=== PATIENT | male | born 1955 ===

== ENCOUNTER 2016-11-05 15:49 | Inpatient (IN) | payer OTHER, MEDICAID ==
[~2016-11-05] VITALS: Ht 177.8 cm; Wt 86.6 kg
[~2016-11-05 15:49] MED LIST: BACL20TA PO; GABA300C PO; LISI-567 PO; METH750T3 PO; NPR500T PO
[2016-11-05] MEDS ORDERED: 0.9% Sodium Chloride 1,000 ML IV ONE ×3 (16:12→19:45)
--- NOTE | 2016-11-05 16:12 | ED.REPORT ---
HPI-General Illness Date of Service Nov 05, 2016 ED Provider: Anupam Evans MD 61 y/o male with a hx of hypertension, DM, pneumonia and heroin abuse presents to the ED via EMS after he was found unconscious at home prior to arrival. The EMS found the patient lying on the floor, unresponsive with green vomit on the side of his face. As per the EMS, the pt seemed like he had aspirated. His oxygen level was very low which improved after the administration of CPAP and by sitting the pt up. The pt was last normal several hours ago, exact time unknown as family was not home. The EMS recorded an axillary temperature of 102 en route. The pt was released from rehab for heroin use 2 days ago. He denies using heroin today. Nursing Notes Stated Complaint: FEVER,RESP DISTRESS Nursing Notes Reviewed: Yes Allergies: Coded Allergies: hydrocodone (Verified Adverse Reaction, Mild, MAKE PT FEEL WEIRD, 03/25/16) Scheduled Aspirin (Aspirin) 81 Mg Tablet 81 MG PO DAILY Lisinopril (Lisinopril) 40 Mg Tablet 40 MG PO DAILY Mirtazapine (Mirtazapine) 15 Mg Tablet 15 MG PO HS Prazosin (Prazosin) 1 Mg Capsule 1 MG PO HS General Time Seen by MD: 16:01 Chief Complaint Breathing problem Hx Obtained From: EMS Arrived By: Ambulance Sudden in Onset?: Yes Onset Occurred: Onset unknown Symptom Duration: Duration unknown Severity: Current: No pain currently Severity: Maximum: No pain Recent Healthcare: No recent doctor visit Similar Sx Previous: No Past Medical History Past Medical History chronic back pain heroin use 03/25/2016 kidney stones back pain r/t DJD with history of lumbar decompression Reports: Hypertension Reports: Depression Past Surgical History bunion surgery colon surgery Reports: Appendectomy Smoking History Current Every Day Smoker Social History no alcohol for 1.5 years 03/25/2016 Alcohol Use: Denies alcohol use Drug Use: THC Other Social History: Good social support, Local resident Occupation lives by self, no work or school Ambulatory Status Independent Review of Systems Unable to Obtain ROS Patient condition (ROS below reported by EMS) Full Review of Systems Constitutional: Reports: Fever GI: Reports: Vomiting Neurologic: Reports: Change LOC Complete sys rev & neg: except as marked. Physical Exam Vital Signs Vital Signs Date Time Temp Pulse Resp B/P Pulse Ox O2 Delivery O2 Flow Rate FiO2 11/05/16 17:13 130 23 153/91 98 Mechanical Ventilator 11/05/16 16:16 39.8 113 30 101/73 80 BiPAP Initial VS: Reviewed Extremities: Vascular intact, Neuro intact, No swelling, No tenderness Skin: Warm, Dry, No cyanosis Alertness: Positive: Somnolent Distress / Hydration: Positive: Distress severe Diaphoretic Febrile to touch Head / Eyes: Atraumatic, Normocephalic Small pupils Respiratory / Chest: Atraumatic Rales / Rhonchi: Positive: Rhonchi coarse L, Rhonchi coarse R Cardiovascular: Regular rhythm, Heart sounds NL, No murmurs, No rubs, Peripheral circulation NL, Pulses = bilaterally Heart Rate / Rhythm: Positive: Tachycardia Abdomen: Atraumatic, Soft, Non-tender, No guarding, No rebound Interpretation & Diagnostics Lab Results Interpretation Result Diagram: 11/05/16 1626 11/05/16 1626 Test 11/05/16 16:26 11/05/16 17:01 11/05/16 17:17 White Blood Count 1.9th/mm3 (3.8-10.1) Red Blood Count 4.37mil/mm3 (4.40-5.80) Hemoglobin 13.5g/dL (13.8-17.2) Hematocrit 40.1% (41.0-50.0) Mean Corpuscular Volume 91.8fL (81-100) Mean Corpuscular Hemoglobin 30.9pg (27.0-35.0) Mean Corpuscular Hemoglobin Concent 33.7% (32.0-37.0) Red Cell Distribution Width 14.4% (12.3-15.4) Platelet Count 178bil/L (150-400) Neutrophils (%) (Auto) 6% (40-74) Lymphocytes (%) (Auto) 28% (14-46) Monocytes (%) (Auto) 2% (4-12) Eosinophils (%) (Auto) 0% (0-5) Basophils (%) (Auto) 0% (0-3) Band Neutrophils % 6% (1-5) Metamyelocytes % 40% (0-0) Myelocytes % 18% (0-0) Prothrombin Time 12.0sec (8.1-12.5) Prothromb Time International Ratio 1.12ratio Sodium Level 129mEq/L (134-144) Potassium Level 4.8mEq/L (3.5-5.2) Chloride Level 89mEq/L (97-108) Carbon Dioxide Level 15mmol/L (18-29) Blood Urea Nitrogen 80mg/dL (8-27) Creatinine 7.88mg/dL (0.76-1.27) Estimat Glomerular Filtration Rate 7mL/min (>59) Glucose Level 89mg/dL (60-99) Calcium Level 8.3mg/dL (8.5-10.1) Phosphorus Level 3.8mg/dL (2.5-4.9) Magnesium Level 1.6mg/dL (1.6-2.6) Total Bilirubin 0.7mg/dL (0.0-1.2) Aspartate Amino Transf (AST/SGOT) 127U/L (0-50) Alanine Aminotransferase (ALT/SGPT) 61U/L (0-44) Alkaline Phosphatase 57U/L (25-160) Troponin T < 0.010ug/L (0.0-0.011) Total Protein 7.3g/dL (6.4-8.4) Albumin 3.5g/dL (3.4-5.0) Lactic Acid Level 3.5mmol/L (0.4-2.0) Urine Color Dark yellow (YELLOW) Urine Appearance Hazy (CLEAR,HAZY) Urine pH 5.0 (5.0-8.0) Urine Specific Jerome 1.020 (1.003-1.035) Urine Protein 100mg/dL (NEG,TRACE) Urine Glucose (UA) Negativemg/dL (NEGATIVE) Urine Ketones Tracemg/dL (NEGATIVE) Urine Occult Blood Large (NEGATIVE) Urine Nitrite Negative (NEGATIVE) Urine Bilirubin Negative (NEGATIVE) Urine Urobilinogen Normalmg/dL (NORMAL) Urine Leukocyte Esterase Trace (NEGATIVE) Urine RBC 3-10/hpf (0-2) Urine WBC 6-10/hpf (0-5) Urine Epithelial Cells Few/hpf (NONE-MOD) Urine Crystals None seen (NONE SEEN) Urine Bacteria Few/hpf (NONE-FEW) Urine Hyaline Casts None/lpf (NONE) Urine Granular Casts None seen (NONE SEEN) Urine Waxy Casts None seen (NONE SEEN) Urine Red Blood Cell Casts None seen (NONE SEEN) Urine White Blood Cell Casts None seen (NONE SEEN) Urine Mucus None seen (None Seen) Urine Trichomonas None seen (NONE SEEN) Urine Yeast None (NONE SEEN) Urinalysis Comment Amorphous sediment Urine Culture Reflexed Indicated ECG Interpretation ECG Interpretation: Sinus tachycardia. Rate 122 Age indeterminate anteroseptal infarct. Time: 16:07 Interpreted by: ED physician X-Ray Chest Interpretation Chest Xray Interpretation: IMPRESSION: Patchy bilateral pneumonia. Pulmonary hemorrhage or atypical pulmonary edema may also have this appearance. Please correlate clinically. Dictated by: Patrick Merlos M.D. on 11/05/2016 at 16:23 Approved by: Patrick Merlos M.D. on 11/05/2016 at 16:26 View: Portable, 1 view Interpretation / Wet Read by: Interpret - Radiologist Procedures Intubation Intubation Procedure: Performed by Kimmy Russell EMT-P under my direct supervision. After intubation, I inserted a glidescope to confirn the placement of tube between the cords. Time: 16:18 Procedure Performed by: ED physician Consent / Setup / Site Prep: Informed consent provided, Consent from patient , rail car repair carman applied, Hand hygiene observed Patient Position: Sniff position Blade / ET Tube / Route: Mac Procedural Sedation/Analgesia: Sedation: Etomidate Neuromuscular Agent: Succinylcholine ET Confirmation: Direct visualization, BS equal, End tidal CO2 device, CXR, Rising O2 sat Secured / Marked: Tube marked at ___ cm (22cm at lips) Complications: None Post-Procedure: Condition improved, Tolerated procedure well, Patient stable Re-Eval/Medical Decision Med Decision/Clinical Course Central line was not placed because his pressure recovered quickly after distal half of saline Time of Eval: 16:16 Re-Evaluation/Progress Note: Discussed diagnosis and plan to admit. Pt understands and agrees with the plan for admission. Consultation #1: Referral / Consult Name: Magno Armendariz MD Consulted With: Hospitalist Call Returned at: 16:57 Lead Business Analyst: Will see patient, Agrees with eval, Agrees with plan, Accepts admit Consultation #2: Referral / Consult Name: Girma Salazar MD Lead Business Analyst: Will see patient Note: At bedside Consultation #3: Referral / Consult Name: Agus Juárez MD Consulted With: Air Sealing Technician Note: Abdomen bedside Counseled Regarding: Diagnosis, Need for admission Discharge & Departure Primary Impression: Aspiration pneumonia Disposition: ADMITTED TO HOSPITAL Discharge Condition All VS Reviewed: Yes Referrals: Jerome Lu MD (PCP) Scribe Attestation Portions of this note were transcribed by Viktoria Nascimento. I, , personally performed the history, physical exam and medical decision- making;I reviewed and confirmed the accuracy of the information in the transcribed note. Signed by Zuri Caicedo. 11/05/16 17:08 copies to: Jerome Lu MD, Kirk H MD Nov 05, 2016 16:12 Viktoria Nascimento Nov 05, 2016 16:36
[2016-11-05] MEDS ORDERED: Cefepime Inj 2,000 MG in Dextrose 5% Minibag Plus 100 ML IV ONE (16:15)
[2016-11-05] MEDS ORDERED: Vancomycin Dose per Pharmacist XX ONE ×2 (16:15→17:40)
[2016-11-05] MEDS ORDERED: levoFLOXacin Inj 750 MG in IV Premix 1 EACH IV ONE (16:15)
[2016-11-05 16:16] VITALS: BP 101/73; PULSE 113; RESP 30; O2SAT 80
--- NOTE | 2016-11-05 16:27 | DRSVH ---
PROCEDURE: X-RAY CHEST ONE VIEW, PORTABLE ([id number]) INDICATIONS: intubation TECHNIQUE: One view of the chest was acquired. COMPARISON: [facility], CR, CHEST 2VW, 12/28/2008, 9:35. FINDINGS: Surgical changes and devices: None. Lungs and pleura: Multifocal areas of pulmonary consolidation are identified within the lungs, which is seen within the bilateral lung bases and at the inferior margin of the right upper lobe. There ma y be consolidation within the lingula, as well. There is no pneumothorax or large effusion. These f indings are new since the prior study. Mediastinum: Mediastinal contours appear normal. Heart size is normal. Bones and chest wall: No suspicious bony lesions. Overlying soft tissues appear unremarkable. IMPRESSION: Patchy bilateral pneumonia. Pulmonary hemorrhage or atypical pulmonary edema may also downing ve this appearance. Please correlate clinically. Dictated by: Patrick Merlos M.D. on 11/05/2016 at 16:23 Approved by: Patrick Merlos M.D. on 11/05/2016 at 16:26
[2016-11-05 16:29] LABS: BASOPHILS % (AUTO) 0 % (0-3); Mean Corpuscular Hemoglobin 30.9 pg (27.0-35.0)
[2016-11-05] MEDS ORDERED: Vancomycin Inj 1,500 MG in 0.9% Sodium Chloride 500 ML IV ONE (16:30)
[2016-11-05 16:32] LABS: EOSINOPHILS % (AUTO) 0 % (0-5); Mean Corpuscular Volume 91.8 fL (81-100); Platelet Count 178 bil/L (150-400)
[2016-11-05] MEDS ORDERED: Midazolam 100 mg/100 mL Premix IV PRN (16:40)
[2016-11-05 16:44] LABS: INR 1.12 ratio
[2016-11-05 16:48] LABS: MONOCYTES % (AUTO) 2 % (4-12); NEUTROPHILS % (AUTO) 6 % (40-74)
[2016-11-05 17:03] LABS: Magnesium 1.6 mg/dL (1.6-2.6); Phosphorus 3.8 mg/dL (2.5-4.9)
--- NOTE | 2016-11-05 17:05 | DRSVH ---
PROCEDURE: X-RAY CHEST ONE VIEW, PORTABLE ([id number]) INDICATIONS: POST INTUBATION TECHNIQUE: One view of the chest was acquired. COMPARISON: [facility], CR, XR CHEST 1VW (PORTABLE), 11/05/2016, 15:58. FINDINGS: Surgical changes and devices: Interval placement of an endotracheal tube is identified with the tip l ocated at the thoracic inlet approximately 5.9 cm above the level of the leyda. Lungs and pleura: Aeration of the lungs is similar to the prior examination with patchy multifocal ar eas of consolidation, most prominent within the inferior aspect of the right upper lobe. No pleural effusion or pneumothorax is evident. Mediastinum: Mediastinal contours appear normal. Heart size is normal. Bones and chest wall: No suspicious bony lesions. Overlying soft tissues appear unremarkable. IMPRESSION: 1. Interval placement of an endotracheal tube with the tip at the thoracic inlet. 2. Patchy consolidation within both lungs is similar to the prior exam. Dictated by: Patrick Merlos M.D. on 11/05/2016 at 17:02 Approved by: Patrick Merlos M.D. on 11/05/2016 at 17:03
[2016-11-05 17:09] LABS: TROPONIN T < 0.010 ug/L (0.0-0.011)
[2016-11-05 17:13] VITALS: BP 153/91; PULSE 130; RESP 23; O2SAT 98
[2016-11-05] MEDS ORDERED: Ondansetron 2 mg/mL 2 mL Inj IVPUSH PRN (17:25)
[2016-11-05] MEDS ORDERED: Succinylcholine Chloride 20 mg/mL 5 mL Inj ONE (17:28)
[2016-11-05] MEDS ORDERED: Dexmedetomidine Inj 400 MCG in 0.9% Sodium Chloride 100 ML IV SCH (17:37)
[2016-11-05] MEDS ORDERED: fentaNYL-PF 50 mCg/mL 2 mL Inj IVPUSH PRN (17:40)
[2016-11-05 17:44] LABS: APPEARANCE,URINE HAZY (CLEAR,HAZY); COLOR,URINE DARK YELLOW (YELLOW); OCCULT BLOOD,URINE LARGE (NEGATIVE)
[2016-11-05 17:45] LABS: UROBILINOGEN,URINE NORMAL (NORMAL)
[2016-11-05] MEDS ORDERED: ASPI-973 PO (17:46)
[2016-11-05] MEDS ORDERED: LISI40TA PO (17:46)
[2016-11-05] MEDS ORDERED: PRAZ1CAP2 PO (17:46)
[2016-11-05] MEDS ORDERED: MIRT15TA6 PO (17:46)
[2016-11-05 17:55] VITALS: BP 148/70; PULSE 126; RESP 22; O2SAT 96
--- NOTE | 2016-11-05 18:26 | PCM.HPMED ---
Subjective Date of Service Nov 05, 2016 Primary Provider: Admitting Physician: Magno Armendariz MD Primary Care Physician: Jerome Lu MD Attending Physician: Magno Armendariz MD Admit Status: From the Emergency Department, Admit to [facility] Team Chief Complaint: 61-year-old male with history of substance abuse presents with acute respiratory failure with hypoxia, toxic encephalopathy and sepsis History of Present Illness: The patient is now intubated and sedated and unable to give history. According to emergency department reports he completed a detoxification program within the last 48 hours. He was at home alone for prolonged period, and found to be obtunded when family returned. Vomitus was observed. educational/development assistant were called and he reportedly received no occipital with minimal change. He presented to the emergency department alert enough to interact verbally. He denied having use and did not identify specific health complaints to the emergency department provider. He was in severe respiratory distress tachycardic and mildly hypotensive. He was intubated urgently. Review of Systems: The patient is unable to comply with ROS. Allergies Coded Allergies: hydrocodone (Verified Adverse Reaction, Mild, MAKE PT FEEL WEIRD, 03/25/16) Home Medications Aspirin 81 mg daily Lisinopril 40 mg daily Mirtazapine 15 mg at bedtime Prazosin 1 mg at bedtime PMH chronic back pain heroin use 03/25/2016 kidney stones back pain r/t DJD with history of lumbar decompression Glucose intolerance . Family History Unable to obtain. Social History Hx Alcohol Use: Yes (OCC) Hx Substance Use: Yes (THC, hx heroin abuse) Hx Tobacco Use: Yes (1/2 PPD since age 11) Smoking Status: Current Every Day Smoker Living Arrangement: with Family Exam Vital Signs Vital Sign - Last Date Time Temp Pulse Resp B/P Pulse Ox O2 Delivery O2 Flow Rate FiO2 11/05/16 17:55 126 22 148/70 96 Mechanical Ventilator 11/05/16 16:16 39.8 Exam General: Middle-age man, disheveled, encephalopathic and agitated on ventilator HEENT: sclerae anicteric, face symmetric, atraumatic Neck: Difficult to assess JVD Chest: Diffuse coarse inspiratory crackles and rhonchi Cardiac: S1S2, regular, no murmur appreciated Abdomen: BS normal, no rigidity Extremities: No pedal edema, no acute swelling or trauma Neuro: Obtunded, cranial nerves symmetric, so far extremities with normal strength, coordination and sensory exam non-testable Lab and Diagnostics Labs Lactic acid 3.5, CPK 6072 Urine tox screen: Positive for opioid and amphetamine Troponin T normal Result Diagram: 11/05/16 1626 11/05/16 1626 X-Rays, CTs and MRIs PROCEDURE: X-RAY CHEST ONE VIEW, PORTABLE ([id number]) IMPRESSION: Patchy bilateral pneumonia. Pulmonary hemorrhage or atypical pulmonary edema may also have this appearance. Please correlate clinically. Dictated by: Patrick Merlos M.D. on 11/05/2016 at 16:23 . PROCEDURE: X-RAY CHEST ONE VIEW, PORTABLE ([id number]) IMPRESSION: 1. Interval placement of an endotracheal tube with the tip at the thoracic inlet. 2. Patchy consolidation within both lungs is similar to the prior exam. Dictated by: Patrick Merlos M.D. on 11/05/2016 at 17:02 . Assessment & Plan 61-year-old man with opioid abuse disorder presents with acute respiratory failure with hypoxia, ARDS versus aspiration pneumonia, and encephalopathy related to hypoxia and probable opioid toxicity. # Sepsis, acute. SIRS criteria on admission: Tachycardia heart rate 113, tachypnea RR 30, temperature 39.8, neutropenia WBC 1.9 with left shift 64% immature forms. Lactic acid 3.5 Presumed due to aspiration pneumonia. - Hemodynamic support to maintain MAP and urine output - Serial lactic acid every 3 hours until less than 2.0 - Antibiotics: Zosyn # Cardiac: Hemodynamics & Rhythm - sinus tachycardia rhythm, troponin T normal , currently hypotensive and may require vasopressors especially with sedation. - Telemetry monitoring - Maintain MAP greater than 65 mmHg # Respiratory status - ARDS versus aspiration pneumonia. - Ventilator bundle; tidal volume for ARDS - Pulmonary consult - Repeat chest x-ray in a.m. # Lines, I/O's, fluids and electrolytes - - 2 peripheral IVs; CVC or PICC indicated if pressor support as needed - Judd catheter - CC electrolyte reflex management # Renal - Acute renal failure with creatinine 7.88 on admission. Elevated CPK likely rhabdomyolysis of several days' duration. Metabolic acidosis anion gap 25. Hyponatremia sodium 129 on admission. Seems to be producing urine. - IV normal saline unless CVP is elevated; avoid fluid overload - Bicarb 1 amp push q8hr - Limit free water - Monitor urine output; reduce IV fluids in the event of reduced urine output - Goal urine output greater than 0.5 mL/KG/MR - Daily BMP - Nephrology consult # Hematological - neutropenia with leukemoid reaction likely related to acute sepsis. - Daily CBC # GI, diabetes, and nutritional status - abdomen seems nonacute. Mild transaminase elevation but no hepatic failure. Glucose is normal - Nutrition consult, plan to initiate enteral feeds by G-tube on 11/06 his abdomen remains nonacute # Neurological - toxic encephalopathy due to opioids, metabolic encephalopathy due to hypoxia. - Monitor clinical status with daily sedation holiday # Infectious disease status - - Zosyn for aspiration pneumonia - Check MRSA swab # Pain status - stable on ventilator sedation # Venous thromboembolism prophylaxis: - Subcutaneous heparin # GI prophylaxis: - IV famotidine every 12 # Goals of care, expected hospital duration, discharge planning: - Admitted to inpatient status in CCU due to life-threatening critical illness, with expectation of care greater than 48 hours - Full code Pain Evaluation: Adequate Pain Control VTE Prophylaxis: Sub-Q Heparin (Unfractionated) Resuscitation Status: CPR: Attempt Resuscitation Time spent 75 minutes spent in patient assessment in care coordination including review of data with consultants Magno Armendariz MD Nov 05, 2016 18:26
--- NOTE | 2016-11-05 18:33 | PCM.CONPHA ---
Assessment/Plan Assessment/Plan Pharmacy Kinetic Dosing Vancomycin Indication: ASPIRATION PNEUMONIA Vanc goal trough: 15-20mcg/mL Pt wt:74.6 kg Other ABX: ZOSYN Cultures: Blood and MRSA pending SCr: 7.88 mg/dL Assessment/Plan: - Loading dose of Vancomycin 1500 mg given in ED for (20mg/kg dosing) -Will continue Vancomycin 750 mg Q48H (10mg/kg dosing) with trough scheduled prior to 4th dose on 11/11 @1700. Suspected that patient is in ROCÍO due to not being a dialysis patient but no past lab values to compare against. Will adjust timing and dosage as SrCr improves. Pharmacy appreciates consult and will continue to monitor. Hillary Ty PharmD Nov 05, 2016 18:33
[2016-11-05] MEDS: 0.9% Sodium Chloride 1,000 ML IV SCH ×2 (18:40→21:41)
[2016-11-05] MEDS: Propofol Inj 1,000,000 MCG in IV Premix 1 EACH IV SCH (18:40)
[2016-11-05 18:41] VITALS: BP 89/51; PULSE 122; RESP 33; O2SAT 96
[2016-11-05] MEDS: fentaNYL 2,500 mCg/250 mL 2,500 MCG in IV Premix 1 EACH IV PRN (18:41)
[2016-11-05] MEDS: Dexmedetomidine 400 mCg/100 mL 400 MCG in IV Premix 1 EACH IV SCH (19:00)
[2016-11-05] MEDS: Cisatracurium Inj 200,000 MCG in 0.9% Sodium Chloride-Pha MIX 100 ML IV SCH (19:02)
--- NOTE | 2016-11-05 19:09 | ABG ---
DateTimeAnalyzed 19:04:00 -_ HCO3- ___16.7__ -mmol/L 22.0 26.0 ABE __-11.3__ -mmol/L -2.0 2.0 FIO2 __100.0__ -% Drawn By MK - B 759 -mmHg tO2 ___17.0__ -Vol%
--- NOTE | 2016-11-05 19:10 | ABG ---
DateTimeAnalyzed 19:03:27 -_ pH ____7.149 - 7.350 7.450 pCO2 ___50.5__ -mmHg 35.0 45.0 pO2 127 -mmHg 69.0 116 HCO3- ___17.5__ -mmol/L 22.0 26.0 ABE __-10.7__ -mmol/L tHb ___12.4__ -g/dL O2Hb ___93.4__ -% COHb ____0.8__ -% 1.5 MetHb ____0.7__ -% sO2 ___94.7__ -% FIO2 __100.0__ -% Pressure_Support ___10.0__ -cmH2O PEEP ____5.0__ -cmH2O Drawn By MK - Date/Time Notified____ 19:09:00 -_ Spontaneous_RR 30 -b/min Oxygen Device 1 VENTILATOR - Notified By MK - Notified Whom kendregan - K+ ____4.7__ -mmol/L tO2 ___16.5__ -Vol% Lj test _Positive -
--- NOTE | 2016-11-05 19:18 | NUR ---
Admit to CCU Pt arrived to CCU at aprox 1815. See VS flow sheet for vitals. ST 120s. Hypotensive, unable to increase sedation despite pt agitation. Dr. Juárez paralyzed pt IV push 8mg of Nimbex. Nimbex gtt started at 3mcg/kg/min. Temp 39.1(ax) at 1815, 45min post Tylenol suppository. Current vent settings: FiO2 100%, PEEP 10, Vt 530, RR 20; SpO2 97%
[2016-11-05] MEDS: Sodium Bicarb (50 mEq) 8.4% 1 mEq/mL 50 mL Syringe IVPUSH SCH ×2 (19:34→23:32)
[2016-11-05] MEDS ORDERED: Norepinephrine 8,000 mCg/250 mL NS Premix IV ONE (19:45)
[2016-11-05] MEDS: Norepineph 8,000 mCg/250 mL NS 8,000 MCG in IV Premix 1 EACH IV SCH (19:50)
--- NOTE | 2016-11-05 20:06 | PCM.CHPMED ---
Subjective Date of Service: Nov 05, 2016 Provider requesting consult: Magno Armendariz MD Primary Physician: Admitting Physician: Magno Armendariz MD Primary Care Physician: Jerome Lu MD Attending Physician: Magno Armendariz MD Admit Status: Admit to Yellow Team, Critical Care Chief Complaint: Chief Complaint: ICU CONSULTATION FOR RESPIRATORY FAILURE, HYPOTENSION, SHOCK. ATTENDING DR PORTILLO History of Present Illness: Herber Brito is a 61 year old man with past medical history significant for hypertension, diabetes mellitus, pneumonia and heroin abuse who presented to the [facility] ED via EMS due to loss of consciousness. The patient was intubated in the ED and is unable to give history, most of the history is obtained from records and provider accounts. The patient has a history of heroin abuse and and was in an inpatient rehab center and was release on Tuesday. Per report he was left alone today and was subsequently found down in his home, laying on the floor with green vomit on the side of his face. The patient was still maintaining his airway when he was brought to the ED. The patient was tried on CPAP by EMS and appeared to improve. He was given Narcan which only improved his somnolence minimally. Per EMS his axillary temperature was 102. Per the ED physician the patient was able to answer a few minimal questions on arrival but was intubated for airway protection. He denied using drugs today. CXR in the ED revealed diffuse patchy infiltrates. When evaluated in the ED the patient was using significant effort to inspire against the portable ventilator and was tachypnic. Upon arrival to the ICU the patient was placed on a ventilatory with marginal improvement. The patient's blood pressure subsequently decreased as he fought the ventilator. He was paralyzed with Nimbex, sedated, with good improvement of the blood pressure. IJ was placed for monitoring and medication delivery. Review of Systems: A comprehensive review of systems could not be performed as the patient is obtunded. 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 Social History Hx Alcohol Use: Yes (OCC)Hx Substance Use: Yes (THC, hx heroin abuse)Hx Tobacco Use: Yes (1/2 PPD since age 11) Smoking Status: Current Every Day Smoker Living Arrangement: with Family Exam Vital Signs Vital Sign - Last Date Time Temp Pulse Resp B/P Pulse Ox O2 Delivery O2 Flow Rate FiO2 11/05/16 18:41 39.1 122 33 89/51 96 Mechanical Ventilator 100 Additional Information: General: in acute distress, thrashing about the bed, agitated, significantly diaphoretic HEENT: Normocephalic, atraumatic. External ears without defect. Pupils equal, round, and reactive to light and accommodation. Anicteric sclerae, moist conjunctivae, and no lid lag. Oropharynx free of erythema and cobble stoning with dry mucosa. ET tube in place, OG tube in place. Neck: Supple with full range of motion. No jugular venous distension. No lymphadenopathy or thyromegaly. Cardiovascular: Tachycardic with regular rhythm with no murmurs, rubs, or gallops appreciated Pulmonary: Clear to auscultation bilaterally with no crackles, wheezes, or rhonchi. Tachypnic with excessive respiratory effort. Abdomen: Bowel tones present. Soft, nontender, nondistended. No hepatosplenomegaly or masses appreciated. Extremities: No clubbing, cyanosis, edema, or lymphadenopathy appreciated. Skin: Normal temperature, turgor, and texture; no rash, ulcers, or subcutaneous nodules appreciated. : Normal appearing genitalia with Judd in place with clear yellow urine draining Neurological: Agitated. Cranial nerves grossly intact. Normal muscle strength, tone, and bulk. No known gait impairment. Psychiatric: Agitated, encephalopathic Lab and Diagnostics Labs CK 6072 Lactic acid 3.5 Laboratory Tests Test 11/05/16 17:17 Urine Color Dark yellow Urine Appearance Hazy Urine pH 5.0 Urine Specific [place] 1.020 Urine Protein 100mg/dL Urine Glucose (UA) Negativemg/dL Urine Ketones Tracemg/dL Urine Occult Blood Large Urine Nitrite Negative Urine Bilirubin Negative Urine Urobilinogen Normalmg/dL Urine Leukocyte Esterase Trace Urine RBC 3-10/hpf Urine WBC 6-10/hpf Urine Epithelial Cells Few/hpf Urine Crystals None seen Urine Bacteria Few/hpf Urine Hyaline Casts None/lpf Urine Granular Casts None seen Urine Waxy Casts None seen Urine Red Blood Cell Casts None seen Urine White Blood Cell Casts None seen Urine Mucus None seen Urine Trichomonas None seen Urine Yeast None Urinalysis Comment Amorphous sediment Urine Culture Reflexed Indicated Result Diagram: 11/05/16 1626 11/05/16 1626 X-Rays, CTs and MRIs X-RAY CHEST ONE VIEW, PORTABLE IMPRESSION: 1. Interval placement of an endotracheal tube with the tip at the thoracic inlet. 2. Patchy consolidation within both lungs is similar to the prior exam. Dictated by: Patrick Merlos M.D. on 11/05/2016 at 17:02 Additional Diagnostics: ABG on 100% FiO2 and PEEP of 5 DateTimeAnalyzed 19:03:27 -_ pH ____7.149 - 7.350 7.450 pCO2 ___50.5__ -mmHg 35.0 45.0 pO2 127 -mmHg 69.0 116 HCO3- ___17.5__ -mmol/L 22.0 26.0 Assessment & Plan Assessment Herber Brito is a 61 year old man with past medical history significant for hypertension, diabetes mellitus, pneumonia and heroin abuse who presented to the [facility] ED via EMS due to loss of consciousness. Encephalopathy secondary to acute drug intoxication secondary to opioids and amphetamines -Patient was extremely agitated and trashed about when he was seen in the ICU -Questionable history, query if patient took drugs not tested on a screen -Patient's hyperthermia, tachycardia, rhabdomyolysis, agitation all more likely due to intoxication than sepsis -Continue paralytic and sedation with Versed Respiratory failure secondary to acute aspiration pneumonia possibly complicated by ARDS -Mechanical ventilation with paralysis with Nimbex, sedation with Versed and Fentanyl -Low tidal volume protocol per ARDS-NET -Repeat ABG in 30 minutes and tomorrow AM -Zosyn per Dr. Salazar Sepsis secondary to aspiration pneumonia -With T 39.8, RR 30, WBC 1.9, hyperlactetemia -Blood, sputum and urine cultures obtained -Antibiotics as above -Patient received 2 L of NS, will continue with one more L and reassess -Serial lactic acid measurement Q3 until <2 Hypotension -Likely secondary to increased intrathoracic pressure secondary to patient agitation and hyperventilation and hypovolemia, improved significantly after patient was paralyzed. -IJ placement with CVP monitoring and hemodynamic monitoring with goal CVP >12, MAP > 65 with further IVF and NE -Continue with fluid resuscitation as long as patient is able to make urine Pancytopenia -Likely secondary to drug ingestion versus sepsis -Patient's bone marrow appears to be making all immature WBCs -Anticipate hemoglobin and platelet count will drop as patient is hydrated. High anion gap metabolic acidosis likely secondary to renal failure and hyperlactetemia -AVF as above -Repeat ABG tonight and in the AM. Repeat BMP tonight and in the AM. Acute renal failure likely secondary to rhabdomyolysis and hypovolemia. -Maintaining good urine output. Will continue to monitor. -Repeat BMP -Nephrology consulted by primary team. Rhabdomyolysis -IVF as above. Patient will likely need more aggressive fluid resuscitation throughout the night. Hypovolemic hyponatremia -IVF as above Prophylaxis: GI: Famotidine DVT: Subcutaneous heparin Thank you for allowing us to participate in the care of this patient, we will follow along with you. Problems: Pain Evaluation: Adequate Pain Control VTE Prophylaxis: Sub-Q Heparin (Unfractionated) Resuscitation Status: CPR: Attempt Resuscitation Time spent A total of 2 hours of critical care time was spent in the coordination and care of this patient. Attending Statement The patient was seen and examined together with Dr. Montelongo on 11/05/2016 and I agree with the history, exam and plan as outlined in the note above. Renata Montelongo DO Nov 05, 2016 20:06 Agus Portillo MD Nov 25, 2016 15:21
--- NOTE | 2016-11-05 20:09 | DRSVH ---
PROCEDURE: X-RAY CHEST ONE VIEW, PORTABLE ([id number]) INDICATIONS: line placement TECHNIQUE: One view of the chest was acquired. COMPARISON: [facility], CR, XR CHEST 1VW (PORTABLE), 11/05/2016, 16:35. FINDINGS: Surgical changes and devices: Right internal jugular central venous catheter with the tip projecting in the lower SVC. Lungs and pleura: Redemonstration of bilateral consolidative opacities, with mild worsening in the ri ght upper lobe Mediastinum: Mediastinal contours appear normal. Heart size is normal. Bones and chest wall: No suspicious bony lesions. Overlying soft tissues appear unremarkable. IMPRESSION: Status post placement of right internal jugular central venous catheter with the tip projecting in th e lower SVC. No pneumothorax. Widespread bilateral consolidative opacities, mildly increased in the right upper lobe since earlier same day Dictated by: Roney Ayala M.D. on 11/05/2016 at 19:50 Approved by: Roney Ayala M.D. on 11/05/2016 at 20:07
[2016-11-05 20:19] VITALS: BP 90/50; O2SAT 99
[2016-11-05] MEDS: Piperacillin-Tazo 3.375 Gm Inj 3.375 GM in Dextrose 5% Minibag Plus 50 ML IV SCH (20:29)
[2016-11-05 20:30] VITALS: BP 85/49; PULSE 110; RESP 20; O2SAT 100
--- NOTE | 2016-11-05 20:30 | ABG ---
DateTimeAnalyzed 20:23:29 -_ pH ____7.177 - 7.350 7.450 pCO2 ___48.7__ -mmHg 35.0 45.0 pO2 104 -mmHg 69.0 116 HCO3- ___18.0__ -mmol/L 22.0 26.0 ABE ___-9.8__ -mmol/L tHb ___13.0__ -g/dL O2Hb ___95.5__ -% COHb ____0.7__ -% 1.5 MetHb ____0.4__ -% sO2 ___96.6__ -% FIO2 __100.0__ -% PEEP ___10.0__ -cmH2O Set_RR 20 -b/min Vt __530.0__ -L Drawn By MK - Date/Time Notified____ 20:30:00 -_ Spontaneous_RR 20 -b/min Oxygen Device 1 VENTILATOR - Notified By MK - Notified Whom dr yanchuk - K+ ____4.9__ -mmol/L tO2 ___17.6__ -Vol% Lj test _Positive -
[2016-11-05 20:40] LABS: BASOPHILS % (AUTO) 0 % (0-3); Mean Corpuscular Hemoglobin 30.5 pg (27.0-35.0); Mean Corpuscular Volume 93.5 fL (81-100); Platelet Count 133 bil/L (150-400)
[2016-11-05] MEDS ORDERED: Sodium Chloride LOK Flush 10 mL Syringe IVFLUSH PRN ×2 (20:40)
[2016-11-05 20:56] LABS: EOSINOPHILS % (AUTO) 0 % (0-5); MONOCYTES % (AUTO) 0 % (4-12); NEUTROPHILS % (AUTO) 6 % (40-74)
--- NOTE | 2016-11-05 21:31 | PCM.PROC ---
Procedure Note Date of Service: Nov 05, 2016 Pre Procedure Diagnosis: Sepsis, hypotension Post Procedure Diagnosis: Sepsis, hypotension Procedure: Central Venous Catheter Placement Provider and Garbage Collection Supervisor: Resident: Renata Montelongo Attending: Agus Juárez Indication for Procedure: Hypotension, sepsis Procedural Analgesia: Sedated with Versed Procedure Details: A time-out was completed verifying correct patient, procedure, site, positioning , and special equipment if applicable. The patient was placed in a dependent position appropriate for central line placement based on the vein to be cannulated. The patients right neck was prepped and draped in sterile fashion. 1 % Lidocaine was used to anesthetize the surrounding skin area. A triple lumen 9- Far[place] Cordis catheter was introduced into the the internal jugular using the Seldinger technique and under ultrasound guidance. The catheter was threaded smoothly over the guide wire and appropriate blood return was obtained. Each lumen of the catheter was evacuated of air and flushed with sterile saline. The catheter was then secured in place to the skin and a sterile dressing applied. Perfusion to the extremity distal to the point of catheter insertion was checked and found to be adequate. Dr. Juárez was present for the entire procedure. Estimated blood loss: 10 cc Post Procedure Plan: Chest xray to confirm line placement. Attending Statement I was present for and supervised the procedure. Date of Service: 11/05/2016 Renata Montelongo DO Nov 05, 2016 21:31 Agus Juárez MD Nov 06, 2016 13:31
[2016-11-05] MEDS: Chlorhexidine 0.12% 15 mL Oral Solution MT SCH ×2 (21:37→23:32)
[2016-11-05] MEDS: Famotidine Inj 20 MG in IV Premix 1 EACH IV SCH (21:38)
[2016-11-05] MEDS ORDERED: Magnesium Sulf 2 Gm/50mL Water 2 GM in IV Premix 1 EACH IV ONE (22:50)
[2016-11-05] MEDS ORDERED: Calcium GLUCO 10% (Gm) Inj 2 GM in 0.9% Sodium Chloride 100 ML IV ONE (22:50)
[2016-11-05] MEDS: 0.9% Sodium Chloride 500 ML IV PRN (23:09)
[2016-11-05] MEDS: Acetaminophen IV 1,000 MG in IV Premix 1 EACH IV PRN (23:32)
[2016-11-06] VITALS (14 sets, daily range): BP systolic 86–118; BP diastolic 50–72; PULSE 96–111; RESP 20–24; O2SAT 91–100
[2016-11-06] MEDS: 0.9% Sodium Chloride 500 ML IV PRN ×5 (00:21→04:25)
[2016-11-06] MEDS: Heparin 5,000 Unit/mL Inj SUBQ SCH ×4 (01:09→23:33)
[2016-11-06] MEDS: 0.9% Sodium Chloride 1,000 ML IV SCH ×6 (01:37→23:33)
[2016-11-06 02:37] LABS: Mean Corpuscular Hemoglobin 30.8 pg (27.0-35.0); Mean Corpuscular Volume 94.3 fL (81-100)
[2016-11-06] MEDS: Norepineph 8,000 mCg/250 mL NS 8,000 MCG in IV Premix 1 EACH IV SCH ×9 (03:10→23:32)
[2016-11-06] MEDS: Chlorhexidine 0.12% 15 mL Oral Solution MT SCH ×6 (04:25→23:32)
[2016-11-06] MEDS ORDERED: Dextrose 10% 250 ML IV ONE (04:25)
[2016-11-06] MEDS ORDERED: Calcium GLUCO 10% (Gm) Inj 2 GM in 0.9% Sodium Chloride 100 ML IV ONE (04:25)
[2016-11-06] MEDS ORDERED: Insulin Human REGular 300 Unit/3 mL Inj IV ONE (04:25)
--- NOTE | 2016-11-06 04:44 | ABG ---
DateTimeAnalyzed 04:37:34 -_ pH ____7.132 - 7.350 7.450 pCO2 ___46.2__ -mmHg 35.0 45.0 pO2 146 -mmHg 69.0 116 HCO3- ___15.4__ -mmol/L 22.0 26.0 ABE __-12.9__ -mmol/L tHb ___13.7__ -g/dL O2Hb ___97.9__ -% COHb ____0.5__ -% 1.5 MetHb ____0.5__ -% sO2 ___98.8__ -% FIO2 __100.0__ -% PEEP ___10.0__ -cmH2O Set_RR 20 -b/min Vt __530.0__ -L Drawn By MK - Date/Time Notified____ 04:43:00 -_ Spontaneous_RR 20 -b/min Notified By MK - Notified Whom _fuiamono - K+ ____5.2__ -mmol/L tO2 ___19.1__ -Vol% Lj test _Positive -
[2016-11-06] MEDS: Piperacillin-Tazo 3.375 Gm Inj 3.375 GM in Dextrose 5% Minibag Plus 50 ML IV SCH ×2 (05:16→17:53)
--- NOTE | 2016-11-06 06:29 | NUR ---
Hypotension/Lab/Febrile/Respiratory P: sbp 68-90s mmhg, map 50s, cvp 5-7, Mg 1.6, corrected CA 7.5, on Vent support with fio2 1.0, abg at 2029 resulted with pH 7.17, pc02 49, p02 104, hc03 18; RASS -5, BIS 40s, on fentanyl, versed and nimbex gtt,Tmax 38.7 C. I: started levo gtt, given NS 500 cc bolus x 6, given mag sulfate 2 gm, ca gluconate 1gm IV x2, given bicarb 2 amps IVP, given Tylenol 1gm IV and applied cooling measures. E: june drained with 2090cc uo, last temp down to 37.1C, map improved >65, cvp 11, levo @ 0.8 mcg/kg/min, fio2 down to 0.80 last p02 146. AM lab resulted with k+ 5.9, given regular insulin 10 units IV, D10W 250cc x1. Family visited last night, updated with plan of care.
[2016-11-06] MEDS: Sodium Bicarb (50 mEq) 8.4% 1 mEq/mL 50 mL Syringe IVPUSH SCH ×3 (08:23→23:32)
--- NOTE | 2016-11-06 08:49 | NUR ---
Per nursing Pt is not appropriate for physical therapy at this time, please d/c order.
--- NOTE | 2016-11-06 09:18 | DRSVH ---
PROCEDURE: X-RAY CHEST ONE VIEW ([id number]) INDICATIONS: Respiratory distress TECHNIQUE: One view of the chest was acquired. COMPARISON: [facility], CR, XR CHEST 1VW (PORTABLE), 11/05/2016, 15:58. [facility], CR, XR CHEST 1VW (PORTABLE), 11/05/2016, 19:17. FINDINGS: Surgical changes and devices: Internal jugular central line on the right. NG tube into the stomach. E ndotracheal tube ending 7 cm above the leyda. Lungs and pleura: No effusion is seen. Bilateral peripheral fluffy areas of airspace disease are pres ent Mediastinum: Mediastinal contours appear normal. Heart size is normal. Bones and chest wall: No suspicious bony lesions. Overlying soft tissues appear unremarkable. IMPRESSION: Bilateral peripheral patchy airspace disease is unchanged in the lungs since the previous day. No evidence for effusion and the heart size and vasculature are normal. This is not failure. In fection is most likely. Dictated by: Francois Curran M.D. on 11/06/2016 at 9:13 Approved by: Francois Curran M.D. on 11/06/2016 at 9:16
--- NOTE | 2016-11-06 09:20 | NUR ---
Social Work: Screen D: Per EMR review, pt is a 61 year old male admitted for Aspiration Pneumonia. Pt is [place] with [facility]; PCP is Jerome Lu MD. NOK is Jann Michel, brother. Advanced directives not on file. Readmit score is low, 05/30. Pt admitted for CCU on mechanical vent. Pt lives in [place] with family. Pt has a history of ETOH use and recently was at detox for substance use. A: Pt who lives in [place] with family. P: Evolving; STRINGER MACHINE TENDER to continue to follow pts clinical course and assist with safe discharge planning; STRINGER MACHINE TENDER to complete CD assessment once ordered by . CHRISTOPHER Negrete
[2016-11-06] MEDS ORDERED: Dextrose 10% 250 ML IV PRN (09:25)
[2016-11-06] MEDS ORDERED: 0.9% Sodium Chloride 500 ML IV ONE (09:30)
[2016-11-06 11:20] LABS: Phosphorus 7.3 mg/dL (2.5-4.9)
[2016-11-06] MEDS: Dextrose 5% 0.9% NaCl 1,000 ML IV SCH ×2 (11:45→21:33)
[2016-11-06 12:53] LABS: BASOPHILS % (AUTO) 1 % (0-3); EOSINOPHILS % (AUTO) 1 % (0-5); MONOCYTES % (AUTO) 8 % (4-12); NEUTROPHILS % (AUTO) 47 % (40-74)
[2016-11-06 12:58] LABS: INR 1.29 ratio
[2016-11-06 13:06] LABS: D-Dimer 8.19 mg/L FEU (<0.50)
[2016-11-06] MEDS ORDERED: Albuterol 2.5 mg/3 mL Inhalation Solution NEB STA (13:11)
[2016-11-06] MEDS ORDERED: Calcium GLUCO 10% (mEq) Inj 9.3 MEQ in Dextrose 5% 100 ML IV ONE (13:15)
--- NOTE | 2016-11-06 13:17 | DRSVH ---
[facility] [address] [place] [address] Echocardiogram Report Name: GIORGIO OBRIEN MStudy Aiden e: 11/06/2016 Height: 70 in Hospital Exam Location: [facility] Weight: 169 lb Gender: Male BSA: 1.9 m2 : 1955 Age: 61 yrs BP: 106/76 mmHg Reason For Study: SEPTIC SHOCK History: smoker Ordering Physician: Leonardo Edenist Referring Physician: NAVDEEP PORTILLO Interpretation Summary No gross evidence for endocarditis; however, the valves are not ideally visualized. The left ventricle is normal in size. The ejection fraction is estimated to be 55-60%. The right ventricle is borderline dilated. Right ventricular systolic function is at the lower limits of normal. The IVC is of normal diameter and collapses greater than 50% with a sniff. This suggests a low right atrial pressure of 3 mm Hg. There is a trivial right-sided pleural effusion. There is a moderately large left-sided pleural effusion. Procedure: A two-dimensional transthoracic echocardiogram with color flow and Doppler was performed. The study quality was technically difficult. There is no prior echocardiogram noted for this patient. The patient was in sinus tachycardia with heart rates between 104-106 bpm during the exam. Left Ventricle: The left ventricle is normal in size. Proximal septal thickening is noted. There is no echo evidence for significant left ventricular outflow tract obstruction. There is no thrombus. The ejection fraction is estimated to be 55-60%. Septal motion is consistent with conduction abnormality. Spectral Doppler of the mitral valve is reversed, with an E/A wave ratio < 1.0. Right Ventricle: The right ventricle is borderline dilated. Right ventricular systolic function is at the lower limits of normal. Atria: The left atrium grossly appears normal in size. Right atrial size is normal. There is no Doppler evidence for an interatrial shunt. Mitral Valve: There is mild mitral annular calcification. There is no mitral regurgitation noted. Aortic Valve: The aortic valve opens well. The aortic valve is not well visualized. There is no aortic valve stenosis. No aortic regurgitation is present. Tricuspid Valve: The tricuspid valve is not well visualized, but is grossly normal. Pulmonary artery pressures cannot be estimated because of the lack of a measurable TR jet velocity. There is trace tricuspid regurgitation. Pulmonic Valve: The pulmonic valve is not well visualized. Great Vessels: The aortic root is normal size. The ascending aorta could not be visualized. The IVC is of normal diameter and collapses greater than 50% with a sniff. This suggests a low right atrial pressure of 3 mm Hg. Pericardium/ Pleura There is a trivial pericardial effusion noted. There are no echocardiographic indications of cardiac tamponade. There is a trivial right-sided pleural effusion. There is a moderately large left-sided pleural effusion. MMode/2D Measurements & Calculations LVIDd: 4.5 cm RA long axis LVOT diam LVIDs: 2.7 cm LA A4 area: 15.8 cm FS: 40.0 % LA length (vol): 4.0 cm RA area AoV Opening IVSd: 0.96 cm IVC diam: 1.2 cm LVPWd: 0.87 cm : 13.7 cm Ao root diam RA vol: 34.3 ml: 3.7 cm RA : 17.6 mm2 LV huntley. diameter/BSA LV sys. diameter/BSA RVD1 (basal) TAPSE: 1.8 cm (cm/m^2): 2.3 (cm/m^2): 1.4 Doppler Measurements & Calculations Ao V2 max MV E max magdiel MV E/A: 0.82 MV dec time: 0.25 sec : 119.9 cm/sec : 55.3 cm/sec Med Peak E' Magdiel Ao max P.8 mmHgMV A max magdiel Ao mean PG : 67.7 cm/sec E/E' med: 5.1 MV P1/2t LVOT Max Magdiel : 74.3 msec : 104.0 cm/sec KANU(I,D): 4.1 cm sev ratio: 1.0 MV P1/2t max magdiel Ao V2 mean LV V1 max PG KANU indexed to BSA : 86.3 cm/sec (cm^2/m^2): 2.1 Ao V2 VTI LV V1 VTI: 16.5 cm MVA(P1/2t): 3.0 cm2 KANU(V,D): 3.4 cm2 Reading Physician:GINO
--- NOTE | 2016-11-06 13:27 | PROG NOTE ---
[address] [address] PROGRESS NOTE PATIENT: GIORGIO OBRIEN : 1955 MR#: [id number] ADMIT: 11/05/2016 JOB ID: [id number] DATE: 11/06/2016 PULMONARY CRITICAL CARE FOLLOWUP NOTE: PROBLEM LIST: 1. Polysubstance abuse with apparent overdose. 2. Aspiration pneumonitis. 3. Shock, multifactorial. 4. Rhabdomyolysis. 5. Acute renal failure. 6. Lactic acidosis. 7. Multiple electrolyte abnormalities including hyperphosphatemia and hyperkalemia. 8. Thrombocytopenia. 9. Severe marrow damage with marked leukopenia. SUBJECTIVE: None. OBJECTIVE: Temperature 38.5 with T-max being 38.7. Pulse 100-110. Respiratory rate 20 with ventilator set at 20. Blood pressure 110/58 on norepinephrine at 0.8 mcg/kg per minute. O2 sat on FiO2 of 60%, PEEP of 10, is 98%. I and O shows 5.7 L in, 2.1 L out. General appearance: Sedated, paralyzed, on the ventilator. Eyes: Conjunctivae are relatively pink. Pinpoint pupils. Nose and throat could not be examined. Chest shows good breath sounds bilaterally. There are coarse crackles throughout the entire left lung field. Some crackles on the right, but less so. No wheeze. Peak inspiratory pressure of 36 with a plateau of 27. PEEP is set at 10, measured at 10 to 12. Inspiratory time 0.6, rise time 0.1. Heart: Regular rhythm. Heart tones seem normal. CHEETAH monitoring shows a cardiac index of 2.1, a stroke volume index of 21, and SVV of 19. TPRI is 2101. Abdomen: Soft. Quiet. Extremities: Mottling of the hands from about the wrist down. Mottling of the lower extremities from the knee down. Hands slightly cool. Feet are significantly cold. LABORATORY: White cell count is 1100. Diff not available. Hemoglobin 13 and stable. Platelet count 114,000 and dropping, being 178,000 ten hours previously. Previous differentials have shown similar white cell counts with a marked left shift. Sodium 136, potassium 5.3, with the patient having received treatment for hyperkalemia at 5.9 at 2:30 a.m. value. Chloride 103, carbon dioxide 17, BUN 61. Creatinine 3.5, down from 7.88 on admission yesterday. Glucose 122. Lactic acid has been running in the 3-3.5 range. Most recent value was 4.6 this morning. Calcium 7.2. Magnesium 2. MRSA by PCR is not detected. Sputum shows no polys. Many mixed shola. Chest x-ray shows bilateral multifocal ill-defined airspace opacities coexisting with diffuse airspace disease. Arterial blood gases on FiO2 of 100%, PEEP of 10, respiratory rate of 20, and tidal volume of 530 showed a pO2 of 146, pCO2 of 46, pH of 7.13. ASSESSMENT: 1. Multisubstance abuse. History is that of overdose. Toxicology screen for what it is worth has shown amphetamine and opiates. Unsure of down time. The patient was discovered unresponsive 2-3 days after discharge from a substance abuse recovery facility. The patient initially extremely agitated, having the toxidrome of amphetamine. Being treated with benzodiazepines but requires paralysis and therefore fentanyl has been added to the regimen. BIS monitor shows value of 40-45. 2. Aspiration pneumonitis. This is been a clinical evaluation. However, at the time of endotracheal intubation he was described as having a clean oropharynx, without erythema or matter in the airway. The apparent noncardiac pulmonary edema could be due to the opiates or related to amphetamines or amphetamine-like substances. Cathinones do usually not show up on the tox screen. 3. Renal failure. The patient has rhabdomyolysis. I think he continues to be somewhat hypovolemic. Cardiac function is poor for somebody in septic shock. Will obtain an echocardiogram to resolve the issue of cardiac dysfunction versus hypovolemia. 4. Rhabdomyolysis. Slowly decreasing. Down from 6000 to 4000. Urine output is reasonable, though not as much as one would like for treatment of the rhabdomyolysis. However, his CK has dropped to below 5000 level, mitigating the risk of renal failure. However, he is already in severe renal failure, probably again multifactorial from shock, overdose, possibly sepsis, as well as the degree of rhabdomyolysis. 5. Pulmonary edema. Suspect this is not cardiac as the heart size is normal to small on an AP film. Suspect he is hypovolemic. Echocardiogram to resolve the issue. 6. Thrombocytopenia. Suspect it is DIC. Will obtain appropriate lab tests. Will need to review the smear to make sure this is not TTP in the face of fever, renal failure, or thrombocytopenia. 7. Renal failure. Some improvement. Creatinine has dropped from 7.88 to 3.45. Fluids as per Nephrology. Will discuss with nephrology after today's evaluation complete and the data is available. 8. Marked leukopenia. I suspect it is from the damage from the apparent overdose. However, the initial history was somewhat unreliable and I think we need to keep roads open for other etiologies. Strongly suspect sepsis. The patient has already received doses of Levaquin and cefepime, as well as vancomycin, in the ER last evening. Zosyn has been continued. Will add a renal dose of Levaquin to Zosyn. PLAN: 1. Echocardiogram. 2. Start glucose source, adding D5 normal saline to his IV due to some elements of hypoglycemia. 3. Expand BMP to CMP. 4. Diff on CBC. 5. D-dimer, fibrinogen, HIV, INR, PT, PTT, respiratory viral panel, and urine for Strep pneumoniae. 6. Levaquin IV 500 mg q.48 hours starting in 24 hours. 7. Serial CKs. 8. Uric acid level. 9. Phosphorus level. TIME: Time spent so far in critical care is 1 hour 20 minutes.
--- NOTE | 2016-11-06 14:02 | CONS ---
[address] [address] CONSULTATION REPORT PATIENT: GIORGIO OBRIEN : 1955 MR#: [id number] ADMIT: 11/05/2016 JOB ID: [id number] DATE OF SERVICE: 11/06/2016 NEPHROLOGY CONSULTATION: REQUESTING PHYSICIAN: Dr. Joselo Armendariz REASON FOR CONSULTATION: Management of abnormal kidney function. CHIEF COMPLAINT: Loss of consciousness. PRESENT ILLNESS: This is a 61-year-old male with a past medical history of hypertension, heroin abuse, chronic hepatitis C infection who was brought to the emergency department via EMS due to loss of consciousness. The patient is intubated and sedated. I have gathered history from the previous medical records. Apparently patient had significant history of heroin abuse. She was in a rehab center and was just released a couple of days ago. The patient subsequently found down in his home. The patient then brought to the emergency department for further investigation. He received Narcan and also placed on CPAP. However, he was later intubated for airway protection. Upon arrival, his vitals were temperature 39.8, pulse 113, respiratory rate 30, blood pressure 101/73. Initial chest x-ray showed patchy bilateral pneumonia. Pulmonary hemorrhage or atypical pulmonary edema may also have this appearance. Initial CBC showed WBC of 1.9, hemoglobin of 13.5, platelets of 178. Initial BMP showed sodium of 129, potassium 4.8, BUN 80, creatinine of 7.88. Lactate level was 3.5. Initial total CPK was 6072. His baseline serum creatinine was 0.8 in March of 2016. Overnight, the patient received IV fluid and broad-spectrum IV antibiotics including vancomycin, Zosyn and Levaquin. The patient remains febrile and hypotensive. The following BMP showed some improvement of his kidney function. His serum creatinine today was 3.45 and CPK level decreased to 4062. PAST MEDICAL HISTORY: 1. Positive for alcohol abuse. 2. Heroin abuse. 3. Hypertension. 4. Hepatitis C infection. 5. History of alcoholic pancreatitis. 6. Depression. PAST SURGICAL HISTORY: 1. Status post lumbar laminectomy. 2. Status post colon resection. 3. Status post appendectomy. 4. Status post tonsillectomy. FAMILY HISTORY: Unable to obtain. SOCIAL HISTORY: Positive for alcohol abuse. No narcotic dependence and heroin abuse. HOME MEDICATION: Aspirin, lisinopril, mirtazapine and Prazosin. ALLERGIES: HYDROCODONE. PHYSICAL EXAMINATION: Vitals: Temperature 37.5, pulse 105, respiratory rate 20, blood pressure 110/58, O2 sat 98% on FiO2 of 60% with full ventilator support. HEENT: No pallor. No jaundice. No JVD. Atraumatic. Intubated. ET tube in place and secured with G-tube in place. Heart: Regular rhythm. Tachycardic. Normal S1, S2. No murmurs, rubs or gallops. Lungs: Equal breath sounds bilaterally. No wheezing. No rhonchi. Full ventilator support. Abdomen: Soft, active bowel sounds. No hepatosplenomegaly. Nondistended. Extremities: No edema, cyanosis. Positive for clubbing of fingers. : Judd catheter in place with clear yellowish urine. LABORATORY: WBC 1.1. Hemoglobin 13, 7% band. Procalcitonin 196.3. Sodium 139, potassium 5.7, chloride 106, bicarbonate 16, BUN 56, creatinine 3.05. Calcium 6.8. AST 118, ALT 58, albumin 2.4. Total creatine kinase 2698. ASSESSMENT: 1. Acute kidney injury, multifactorial, including rhabdomyolysis, sepsis, ATN and component of intravascular volume depletion. His kidney function has improved with the aggressive fluid resuscitation. Agreed with the ICU team to continue normal saline at 200 cc/hour. 2. Hyperkalemia secondary to renal insufficiency, metabolic acidosis and muscle injury. 3. Hypocalcemia secondary to rhabdomyolysis and acute kidney injury. 4. Severe sepsis. 5. Aspiration pneumonia. 6. Metabolic encephalopathy. 7. Pancytopenia. 8. Resolved hyponatremia. PLAN: 1. There is no emergency indication to dialyze the patient. He seems responding well with the current IV fluid managed by ICU team. We will continue current IV fluid management. We will give him another dose of albuterol nebulizer to bring down his potassium level. 2. Will continue to hold lisinopril. Avoid nephrotoxins. Avoid NSAIDs or IV contrast. Renally dose medications. Thank you for allowing me to participate in the care of your patient. We will monitor along with you. [facility] WESTCHESTERUlisses
[2016-11-06] MEDS: Cisatracurium Inj 200,000 MCG in 0.9% Sodium Chloride-Pha MIX 100 ML IV SCH (14:45)
[2016-11-06] MEDS: Acetaminophen IV 1,000 MG in IV Premix 1 EACH IV PRN (15:02)
--- NOTE | 2016-11-06 15:13 | NUR ---
Hypotension/Labs/Hypoglycemia/Fever Pt continues to require norepinephrine to maintain MAP 65. CVP <10, NS rate increased to 200cc/hr, 500cc NS bolus administered per Dr. Armendariz orders. Q2H lactate levels, last was 4.5 next one is pending. BG this morning 61, D10 given, BG increased to 102 then continued to trend down; D5NS started at 100cc/h per Dr. Juárez. BG stable in 90s at this time. Q1H BG checks. Aprox 1300 pt became more alert and began moving head and lifting arms; nimbex gtt increased, midaz gtt increased as well as fent gtt. Train of four was 4/4 with BIS 50-59. See CCU flow sheet for current gtt rates. Tmax 38.7(ax.), IV APAP hanging at this time, Dr. Juárez aware. ST 1-teens, rate trending up this afternoon. Care continues.
--- NOTE | 2016-11-06 15:32 | PCM.PNMED ---
Subjective Date of Service Nov 06, 2016 Subjective 61-year-old male with history of substance abuse presents with acute respiratory failure with hypoxia, toxic encephalopathy and sepsis. Sedated, paralyzed and unable to give history. Continues to require pressor support. Exam Vital Signs Vital Sign - Last Date Time Temp Pulse Resp B/P Pulse Ox O2 Delivery O2 Flow Rate FiO2 11/06/16 14:00 21 91 60 11/06/16 12:30 37.3 104 92/58 Mechanical Ventilator Intake and Output 11/05/16 11/05/16 11/06/16 Cumulative From/Thru 15:00 23:00 07:00 11/05/16 16:16 - 11/06/16 05:41 Intake Total 1500 ml 5764 ml 7264 ml Output Total 550 ml 2165 ml 2715 ml Balance 950 ml 3599 ml 4549 ml Intake IV Total 1500 ml 5764 ml 7264 ml Output Urine Total 550 ml 2090 ml 2640 ml Gastric Drainage Total 75 ml 75 ml # Bowel Movements 0 0 Exam General: Middle-age man, disheveled, encephalopathic and agitated on ventilator HEENT: sclerae anicteric, face symmetric, atraumatic Neck: Difficult to assess JVD Chest: Diffuse coarse inspiratory breath sounds and scattered rhonchi Cardiac: S1S2, regular, no murmur appreciated Abdomen: BS normal, no rigidity Extremities: No pedal edema, no acute swelling or trauma Neuro: Obtunded, cranial nerves symmetric IVs and Medications Medications Reviewed: Medications were reviewed in detail Lab and Diagnostics Result Diagram: 11/06/16 0230 11/06/16 1140 X-Rays, CTs and MRIs PROCEDURE: X-RAY CHEST ONE VIEW, PORTABLE ([id number]) IMPRESSION: Patchy bilateral pneumonia. Pulmonary hemorrhage or atypical pulmonary edema may also have this appearance. Please correlate clinically. Dictated by: Patrick Merlos M.D. on 11/05/2016 at 16:23 . PROCEDURE: X-RAY CHEST ONE VIEW, PORTABLE ([id number]) IMPRESSION: 1. Interval placement of an endotracheal tube with the tip at the thoracic inlet. 2. Patchy consolidation within both lungs is similar to the prior exam. Dictated by: Patrick Merlos M.D. on 11/05/2016 at 17:02 PROCEDURE: X-RAY CHEST ONE VIEW ([id number] IMPRESSION: Bilateral peripheral patchy airspace disease is unchanged in the lungs since the previous day. No evidence for effusion and the heart size and vasculature are normal. This is not failure. Infection is most likely. Dictated by: Francois Curran M.D. on 11/06/2016 at 9:13 . Cardiac Echo Impressions Echocardiogram Report Name: GIORGIO OBRIEN Study Date: 11/06/2016 Interpretation Summary No gross evidence for endocarditis; however, the valves are not ideally visualized. The left ventricle is normal in size. The ejection fraction is estimated to be 55-60%. The right ventricle is borderline dilated. Right ventricular systolic function is at the lower limits of normal. The IVC is of normal diameter and collapses greater than 50% with a sniff. This suggests a low right atrial pressure of 3 mm Hg. There is a trivial right-sided pleural effusion. There is a moderately large left-sided pleural effusion. . Assessment & Plan 61-year-old man with opioid abuse disorder presents with acute respiratory failure with hypoxia, ARDS versus aspiration pneumonia, and encephalopathy related to hypoxia and probable opioid toxicity. # Sepsis, acute. SIRS criteria on admission: Tachycardia heart rate 113, tachypnea RR 30, temperature 39.8, neutropenia WBC 1.9 with left shift 64% immature forms. Lactic acid 3.5, persistent in range of 2.9-4.6 despite aggressive fluid resuscitation. Presumed due to aspiration pneumonia and septic shock. - Hemodynamic support to maintain MAP and urine output - Antibiotics: Zosyn, Levaquin # Cardiac: Hemodynamics & Rhythm - sinus tachycardia rhythm, troponin T normal , currently hypotensive and may require vasopressors especially with sedation. - Telemetry monitoring - Maintain MAP greater than 65 mmHg # Respiratory status - ARDS versus aspiration pneumonia. - Ventilator bundle; tidal volume for ARDS - Pulmonary consult - Repeat chest x-ray in a.m. # Lines, I/O's, fluids and electrolytes - Hyponatremia sodium 129, hyperkalemia range 4.8-5.9. Hypocalcemia, total calcium 8.3 on admission declined to 6.8 with normal ionized calcium. - 2 peripheral IVs; CVC - Judd catheter fracture urine output - Albuterol and insulin glucose infusion to control potassium - Intravenous calcium per nephrology service - Daily BMP # Renal - Acute renal failure with creatinine 7.88 on admission, now declined to 3.05 within 24 hours. Rhabdomyolysis with urine strongly positive for blood despite few red cells. Elevated CPK is rapidly declining. Metabolic acidosis , anion gap 25 on admission. Phosphorus 3.8 on admission, rising to 7.3. Urine output has been adequate - Continue IV normal saline 200 mL per hour, unless CVP is elevated; - Bicarb 1 amp push q8hr - Limit free water - Goal urine output greater than 0.5 mL/KG/MR - Nephrology consult # Hematological - Marked neutropenia with leukemoid reaction likely related to acute sepsis. - Daily CBC # GI, diabetes, and nutritional status - abdomen seems nonacute. Mild transaminase elevation but no hepatic failure. Glucose is normal - Nutrition consult, plan to initiate enteral feeds by G-tube on 11/06 his abdomen remains non-acute # Neurological - Initially toxic encephalopathy due to opioids, metabolic encephalopathy due to hypoxia. Now ventilator sedation. - Monitor clinical status with daily sedation holiday # Infectious disease status - aspiration pneumonia. MRSA swab negative - Zosyn, levofloxacin for aspiration pneumonia # Pain status - stable on ventilator sedation # Venous thromboembolism prophylaxis: - Subcutaneous heparin # GI prophylaxis: - IV famotidine every 12 # Goals of care, expected hospital duration, discharge planning: - Admitted to inpatient status in CCU due to life-threatening critical illness, with expectation of care greater than 48 hours - Full code VTE Prophylaxis: Sub-Q Heparin (Unfractionated) VTE Mechanical Devices: Intermittant Pneumatic CD Resuscitation Status: CPR: Attempt Resuscitation Time spent 35 minutes Magno Armendariz MD Nov 06, 2016 15:32
[2016-11-06] MEDS: Propofol Inj 1,000,000 MCG in IV Premix 1 EACH IV SCH (16:48)
--- NOTE | 2016-11-06 17:58 | DRSVH ---
PROCEDURE: US ABDOMEN ([id number]) INDICATIONS: ETOH abuse, ROCÍO TECHNIQUE: Real-time scanning was performed of the abdominal and retroperitoneal organs, with image documentatio n. COMPARISON: None. FINDINGS: Liver: Liver is upper normal to mildly enlarged at 18.4 cm. and homogeneous in echotexture. Gallbladder: Gallbladder is prominent in size there is sludge within it. Gallbladder measures 10 x 5 x 5 cm. The wall is 2.4 mm in thickness. No tenderness is found over the gallbladder. Biliary ducts: Intrahepatic bile ducts are non-dilated. Extrahepatic bile duct caliber measures 9 m m. Normal is 6-7 mm or less in diameter, or 10 mm or less post-cholecystectomy. Pancreas: A portion of the head can be seen and is normal. But the majority of the pancreas is not se en because of bowel gas. Spleen: Spleen is obscured by bowel gas. Kidneys: Kidneys are normal in size and echotexture. Right kidney measures 11.5 cm long; left kidne y measures 10.7 cm long. No hydronephrosis or nephrolithiasis. No solid masses. Multiple renal cys ts are present. Aorta: The abdominal aorta is normal in size. Iliacs: Proximal common iliac arteries are obscured by bowel gas. IVC: Intrahepatic inferior vena cava is patent. Miscellaneous: No free abdominal fluid. IMPRESSION: Prominent gallbladder with sludge suggesting probable fasting state. Common bile duct how ever is enlarged. Correlation with liver function tests as needed. Dictated by: Francois Curran M.D. on 11/06/2016 at 17:52 Approved by: Francois Curran M.D. on 11/06/2016 at 17:57
[2016-11-06] MEDS ORDERED: Albumin 25% 50 GM in IV Premix 1 EACH IV SCH (18:05)
[2016-11-06] MEDS ORDERED: Albumin 25% 50 GM in IV Premix 1 EACH IV ONE (18:15)
[2016-11-06] MEDS: Dexmedetomidine 400 mCg/100 mL 400 MCG in IV Premix 1 EACH IV SCH (18:40)
--- NOTE | 2016-11-06 18:44 | ABG ---
DateTimeAnalyzed 18:36:00 -_ pH ____7.187 - 7.350 7.450 pCO2 ___45.9__ -mmHg 35.0 45.0 pO2 116 -mmHg 69.0 116 HCO3- ___16.7__ -mmol/L 22.0 26.0 ABE __-11.1__ -mmol/L -2.0 2.0 tHb ___13.2__ -g/dL O2Hb ___96.2__ -% COHb ____0.3__ -% MetHb ____1.0__ -% sO2 ___97.5__ -% 25.0 FIO2 __100.0__ -% PRVC 530 - PEEP ____7.0__ -cmH2O Set_RR ___20.0__ -b/min Drawn By KBB - Date/Time Notified____ 18:44:00 -_ Notified By KBB - Notified Whom Kendregan, Agus MD -_ B 761 -mmHg tO2 ___18.0__ -Vol% Lj test _Positive -
--- NOTE | 2016-11-06 18:50 | PROG NOTE ---
[address] [address] PROGRESS NOTE PATIENT: GIORGIO OBRIEN : 1955 MR#: [id number] ADMIT: 11/05/2016 JOB ID: [id number] PULMONARY/CRITICAL CARE FOLLOWUP NOTE: DATE: 11/06/2016 PROBLEM LIST: 1. Polysubstance abuse with apparent overdose. 2. Aspiration pneumonitis. 3. Shock, multifactorial. 4. Rhabdomyolysis. 5. Acute renal failure. 6. Lactic acidosis. 7. Multiple electrolyte abnormalities. 8. Thrombocytopenia. 9. Thyroid damage secondary to above. SUBJECTIVE: None. OBJECTIVE: Temperature 37.3, pulse 100-110, respiratory rate 21, blood pressure 92/58, though currently after a turn in bed, running at 77/53. O2 sat on FiO2 60%, PEEP 5, is 94%. I and O: 3 L of urine output in the past 11 hours. Started a spontaneous diuresis a bit after noon. Chest: Fair breath sounds. Coarse crackles throughout both lung villanueva. Heart: Regular rhythm. Somewhat quick. Abdomen soft. Quiet. Extremities: Mottling from the knee peripherally and the hand. DIAGNOSTIC DATA: Echocardiogram shows ejection fraction of 55% to 60%. Left ventricle normal in size. Right ventricle borderline dilated with systolic function at the lower limits of normal. IVC of normal diameter collapsing greater than 50% with suggesting low right atrial pressure of 3. LABORATORY DATA: Awaiting repeat laboratory. However differential on the morning white count of 1100 is 47 polymorphonuclears, 7 bands, 36 lymphocytes, 8 monocytes, 1 eosinophil. CVP currently at 4. ASSESSMENT: The patient seems to be hypovolemic. CK is decreasing with current value of 2698 this morning at 11 a.m. down from 4062 at 2:30 a.m.. Awaiting this afternoon's lab at this point. However, he seems to be hypovolemic and therefore that is the apparent problem with the resistance to norepinephrine. I will give him a fluid bolus followed by albumin and see how he does. May have to resort to steroids; possibly vasopressin to see how we do. Still, some concern about cardiac function. The echo was somewhat reassuring though his cardiac output should be higher than it is. Hopefully it is just because of the low volume. PLAN: 1. A fluid challenge of 500 mL of saline now followed by albumin 50 g when available. 2. Awaiting lab results. 3. May need to start with vasopressin and steroids to see if we can maintain a better blood pressure than we have. 4. Arterial blood gases now to see if we might be able to decrease the PEEP if indeed there is a low volume, although vascular volume than the PEEP will cause us increased problems. ADDITIONAL TIME SPENT: 40 minutes.
[2016-11-06] MEDS ORDERED: LORazepam 100 mg/100 mL NS 100 MG in IV Premix 100 EACH IV SCH (19:31)
[2016-11-06] MEDS ORDERED: 0.9% Sodium Chloride 1,000 ML IV SCH (19:35)
[2016-11-06] MEDS: Famotidine Inj 20 MG in IV Premix 1 EACH IV SCH (21:26)
[2016-11-06] MEDS: LORazepam 100 mg/100 mL Drip IV PRN ×2 (21:26)
[2016-11-06] MEDS: fentaNYL 2,500 mCg/250 mL 2,500 MCG in IV Premix 1 EACH IV PRN (21:33)
[2016-11-07] VITALS (11 sets, daily range): BP systolic 99–122; BP diastolic 54–70; PULSE 100–105; RESP 20; O2SAT 89–99
[2016-11-07] MEDS: Cisatracurium Inj 200,000 MCG in 0.9% Sodium Chloride-Pha MIX 100 ML IV SCH ×2 (00:20→12:09)
[2016-11-07] MEDS: Norepineph 8,000 mCg/250 mL NS 8,000 MCG in IV Premix 1 EACH IV SCH ×7 (01:22→20:23)
[2016-11-07] MEDS: 0.9% Sodium Chloride 1,000 ML IV SCH ×6 (02:45→10:58)
[2016-11-07 02:48] LABS: BASOPHILS % (AUTO) 0 % (0-3); EOSINOPHILS % (AUTO) 2.5 % (0-5); MONOCYTES % (AUTO) 3.7 % (4-12); Mean Corpuscular Hemoglobin 30.5 pg (27.0-35.0); Mean Corpuscular Volume 95.1 fL (81-100); NEUTROPHILS % (AUTO) 72.8 % (40-74); Platelet Count 43 bil/L (150-400)
[2016-11-07 03:34] LABS: Magnesium 1.5 mg/dL (1.6-2.6); Phosphorus 4.2 mg/dL (2.5-4.9)
[2016-11-07] MEDS: Chlorhexidine 0.12% 15 mL Oral Solution MT SCH ×5 (03:43→20:23)
[2016-11-07] MEDS ORDERED: Calcium GLUCO 10% (Gm) Inj 2 GM in 0.9% Sodium Chloride 100 ML IV ONE (04:15)
--- NOTE | 2016-11-07 05:04 | ABG ---
DateTimeAnalyzed 05:00:00 -_ pH ____7.163 - pCO2 ___50.7__ -mmHg pO2 ___51.6__ -mmHg HCO3- ___17.5__ -mmol/L ABE __-10.9__ -mmol/L tHb ___12.3__ -g/dL O2Hb ___82.5__ -% COHb ____0.4__ -% MetHb ____1.2__ -% sO2 ___83.8__ -% FIO2 __100.0__ -% PRVC 530 - PEEP ____7.0__ -cmH2O Set_RR ___20.0__ -b/min Drawn By AF - Date/Time Notified____ 05:04:00 -_ B 761 -mmHg tO2 ___14.3__ -Vol% OrderingPhysicianInitials bak - Lj test N/A -
--- NOTE | 2016-11-07 05:08 | ABG ---
DateTimeAnalyzed 05:01:47 -_ pH ____7.176 - 7.350 7.450 pCO2 ___50.0__ -mmHg 35.0 45.0 pO2 ___74.9__ -mmHg 69.0 116 HCO3- ___18.5__ -mmol/L 22.0 26.0 ABE ___-9.4__ -mmol/L tHb ___12.7__ -g/dL O2Hb ___92.6__ -% COHb ____0.6__ -% 1.5 MetHb ____0.6__ -% sO2 ___93.7__ -% FIO2 __100.0__ -% PEEP ____7.0__ -cmH2O Set_RR 20 -b/min Vt __530.0__ -L Drawn By MK - Spontaneous_RR 20 -b/min Oxygen Device 1 VENTILATOR - Notified Whom _fuiamano - K+ ____4.6__ -mmol/L tO2 ___16.6__ -Vol% Lj test _Positive -
--- NOTE | 2016-11-07 06:03 | NUR ---
Cardiac/Lab Levo gtt was 0.9 mcg/kg/min, cvp 8-10, given 2L NS bolus, then NS @ 250 cc/hr, able to taper down levo gtt towards the end of shift, large uo from june. AM abg resulted with pH 7.18 pc02 50, p02 75,hc03 18.5, fio2 remain 100% on vent support. AM calcium 6.3, corrected ca 7.58, Tmax 38.3C, given Ca gluconate and Tylenol LA, applied cooling measures, stable BG low 100s with D5NS IVF. Lactic acid trending down.
[2016-11-07] MEDS: Piperacillin-Tazo 3.375 Gm Inj 3.375 GM in Dextrose 5% Minibag Plus 50 ML IV SCH ×2 (06:28→18:09)
[2016-11-07] MEDS: Dextrose 5% 0.9% NaCl 1,000 ML IV SCH (06:29)
[2016-11-07] MEDS: Heparin 5,000 Unit/mL Inj SUBQ SCH (07:51)
--- NOTE | 2016-11-07 08:17 | DRSVH ---
PROCEDURE: X-RAY CHEST ONE VIEW, PORTABLE ([id number]) INDICATIONS: shock; OD amphetamines, opiates TECHNIQUE: One view of the chest was acquired. COMPARISON: [facility], CR, XR CHEST 1VW, 11/06/2016, 3:42. FINDINGS: Surgical changes and devices: Endotracheal tube and enteric tube are grossly unchanged. Right central venous catheter with the tip projecting in the lower SVC as before. Lungs and pleura: Hazy opacification in the lung bases bilaterally, cannot exclude layering pleural e ffusions. No pneumothorax. Bilateral worsening consolidative opacities, and worsening retrocardiac co nsolidation. Mediastinum: Mediastinal contours appear normal. Heart size is normal. Bones and chest wall: No suspicious bony lesions. Overlying soft tissues appear unremarkable. IMPRESSION: Interval worsening of dense multifocal bilateral and retrocardiac consolidations since earlier same d ay. Recommend clinical correlation. Unchanged support equipment. Dictated by: Roney Ayala M.D. on 11/07/2016 at 8:12 Approved by: Roney Ayala M.D. on 11/07/2016 at 8:15
[2016-11-07] MEDS: Sodium Bicarb (50 mEq) 8.4% 1 mEq/mL 50 mL Syringe IVPUSH SCH (08:38)
[2016-11-07] MEDS ORDERED: Magnesium Sulf 2 Gm/50mL Water 2 GM in IV Premix 1 EACH IV ONE (11:25)
[2016-11-07] MEDS: Sodium Bicarb 8.4% Inj 150 MEQ in Dextrose 5% 1,000 ML IV SCH ×3 (12:41→18:16)
--- NOTE | 2016-11-07 12:49 | PCM.PNMED ---
Subjective Date of Service Nov 07, 2016 Subjective 61-year-old male with history of substance abuse presents with acute respiratory failure with hypoxia, toxic encephalopathy and sepsis. Sedated, paralyzed and unable to give history. Continues to require pressor support and aggressive fluids, with low CVP. Exam Vital Signs Vital Sign - Last Date Time Temp Pulse Resp B/P Pulse Ox O2 Delivery O2 Flow Rate FiO2 11/07/16 08:00 37.7 105 20 108/58 97 Mechanical Ventilator 90 Intake and Output 11/06/16 11/06/16 11/07/16 Cumulative From/Thru 14:59 22:59 06:59 11/05/16 16:16 - 11/07/16 03:47 Intake Total 5316 ml 89036 ml Output Total 3100 ml 5815 ml Balance 2216 ml 6765 ml Intake IV Total 5316 ml 29141 ml Output Urine Total 3100 ml 5740 ml Gastric Drainage Total 0 ml 75 ml # Bowel Movements 0 0 Exam General: Middle-age man, sedated on ventilator HEENT: sclerae anicteric, face symmetric, atraumatic Neck: Difficult to assess JVD Chest: Diffuse coarse rhonchi Cardiac: S1S2, regular, no murmur appreciated Abdomen: BS normal, no rigidity Extremities: Forearm edema, No pedal edema, no acute swelling or trauma Neuro: Obtunded, paralyzed, facial muscles symmetric IVs and Medications Medications Reviewed: Medications were reviewed in detail Lab and Diagnostics Result Diagram: 11/07/16 0240 11/07/16 0240 X-Rays, CTs and MRIs PROCEDURE: X-RAY CHEST ONE VIEW, PORTABLE ([id number]) IMPRESSION: Patchy bilateral pneumonia. Pulmonary hemorrhage or atypical pulmonary edema may also have this appearance. Please correlate clinically. Dictated by: Patrick Merlos M.D. on 11/05/2016 at 16:23 . PROCEDURE: X-RAY CHEST ONE VIEW, PORTABLE ([id number]) IMPRESSION: 1. Interval placement of an endotracheal tube with the tip at the thoracic inlet. 2. Patchy consolidation within both lungs is similar to the prior exam. Dictated by: Patrick Merlos M.D. on 11/05/2016 at 17:02 PROCEDURE: X-RAY CHEST ONE VIEW ([id number] IMPRESSION: Bilateral peripheral patchy airspace disease is unchanged in the lungs since the previous day. No evidence for effusion and the heart size and vasculature are normal. This is not failure. Infection is most likely. Dictated by: Francois Curran M.D. on 11/06/2016 at 9:13 PROCEDURE: X-RAY CHEST ONE VIEW, PORTABLE ([id number]) IMPRESSION: Interval worsening of dense multifocal bilateral and retrocardiac consolidations since earlier same day. Recommend clinical correlation. Unchanged support equipment. Dictated by: Roney Ayala M.D. on 11/07/2016 at 8:12 . Cardiac Echo Impressions Echocardiogram Report Name: GIORGIO OBRIEN Study Date: 11/06/2016 Interpretation Summary No gross evidence for endocarditis; however, the valves are not ideally visualized. The left ventricle is normal in size. The ejection fraction is estimated to be 55-60%. The right ventricle is borderline dilated. Right ventricular systolic function is at the lower limits of normal. The IVC is of normal diameter and collapses greater than 50% with a sniff. This suggests a low right atrial pressure of 3 mm Hg. There is a trivial right-sided pleural effusion. There is a moderately large left-sided pleural effusion. . Assessment & Plan 61-year-old man with opioid abuse disorder presents with acute respiratory failure with hypoxia, ARDS versus aspiration pneumonia, and encephalopathy related to hypoxia and probable opioid toxicity. # Sepsis, acute. SIRS criteria on admission: Tachycardia heart rate 113, tachypnea RR 30, temperature 39.8, neutropenia WBC 1.9 with left shift 64% immature forms. Lactic acid 3.5, persistent in range of 2.9-4.6 despite aggressive fluid resuscitation. Presumed due to aspiration pneumonia and septic shock. - Hemodynamic support to maintain MAP and urine output - Antibiotics: Zosyn, Levaquin # Cardiac: Hemodynamics & Rhythm - sinus tachycardia rhythm, troponin T normal , currently hypotensive and may require vasopressors especially with sedation. - Telemetry monitoring - Maintain MAP greater than 65 mmHg # Respiratory status - ARDS versus aspiration pneumonia. - Ventilator bundle; tidal volume for ARDS: Nimbex, fentanyl, midazolam - Pulmonary consult - Repeat chest x-ray in a.m. # Lines, I/O's, fluids and electrolytes - Hyponatremia sodium 129, hyperkalemia range 4.8-5.9. Hypocalcemia, total calcium 8.3 on admission declined to 6.8 with normal ionized calcium. - 2 peripheral IVs; CVC - Judd catheter monitor urine output - Albuterol and insulin glucose infusion to control potassium if needed - Daily BMP # Renal - Acute renal failure with creatinine 7.88 on admission, now declined to 1.75 within 72 hours. Rhabdomyolysis with urine strongly positive for blood despite few red cells. Elevated CPK 6072 is rapidly declining, now 887. Metabolic acidosis, anion gap 25 on admission. Persistent lactic acid elevation. Phosphorus 3.8 on admission, rising to 7.3. Urine output has been robust, possible post ATN diuresis - Continue IV normal saline 200 mL per hour, to maintain CVP and match urine output - Bicarb 1 amp push q8hr, per nephrology - Limit free water - Goal urine output greater than 0.5 mL/KG/MR # Hematological - Marked neutropenia with leukemoid reaction likely related to acute sepsis. - Daily CBC # GI, diabetes, and nutritional status - abdomen seems nonacute. Mild transaminase elevation but no hepatic failure. Glucose is normal - Nutrition consult, plan to initiate enteral feeds by OG-tube # Neurological - Initially toxic encephalopathy due to opioids, metabolic encephalopathy due to hypoxia. Now ventilator sedation. - Monitor clinical status with daily sedation holiday # Infectious disease status - aspiration pneumonia. MRSA swab negative - Zosyn, levofloxacin for aspiration pneumonia # Pain status - stable on ventilator sedation # Venous thromboembolism prophylaxis: - Subcutaneous heparin # GI prophylaxis: - IV famotidine every 12 # Goals of care, expected hospital duration, discharge planning: - Admitted to inpatient status in CCU due to life-threatening critical illness, with expectation of care greater than 48 hours - Full code VTE Prophylaxis: Sub-Q Heparin (Unfractionated) VTE Mechanical Devices: Intermittant Pneumatic CD Resuscitation Status: CPR: Attempt Resuscitation Magno Armendariz MD Nov 07, 2016 12:39
--- NOTE | 2016-11-07 12:58 | PCM.PNNEPH ---
Subjective Date of Service Nov 07, 2016 Subjective Remains in the critical condition Full vent support and vasopressors required. FiO2 80%. Cr trends, 1.75. I&O [address]. Exam Vital Signs Vital Sign - Last Date Time Temp Pulse Resp B/P Pulse Ox O2 Delivery O2 Flow Rate FiO2 11/07/16 08:00 37.7 105 20 108/58 97 Mechanical Ventilator 90 Intake and Output 11/06/16 11/06/16 11/07/16 Cumulative From/Thru 15:00 23:00 07:00 11/05/16 16:16 - 11/07/16 03:47 Intake Total 5316 ml 81299 ml Output Total 3100 ml 5815 ml Balance 2216 ml 6765 ml Intake IV Total 5316 ml 25039 ml Output Urine Total 3100 ml 5740 ml Gastric Drainage Total 0 ml 75 ml # Bowel Movements 0 0 Exam GA: Inutabted, sedated. HEENT: No pallor. No jaundice. No JVD. Atraumatic. Intubated. ET tube in place. OG tube. Right triple lumen secured. Heart: Regular rhythm. Tachycardic. Normal S1, S2. No murmurs, rubs or gallops. Lungs: Equal breath sounds bilaterally. No wheezing. Secretion sounds noted. Full ventilator support. Abdomen: Soft, decreased bowel sounds. No hepatosplenomegaly. mildly distended. Umbilical hernia. Extremities: (+) upper extremities edema. No cyanosis. Positive for clubbing of fingers. : Judd catheter in place with clear yellowish urine. Lab and Diagnostics Result Diagram: 11/07/16 0240 11/07/16 0240 X-Rays, CTs and MRIs PROCEDURE: X-RAY CHEST ONE VIEW, PORTABLE ([id number]) IMPRESSION: Patchy bilateral pneumonia. Pulmonary hemorrhage or atypical pulmonary edema may also have this appearance. Please correlate clinically. Dictated by: Patrick Merlos M.D. on 11/05/2016 at 16:23 . PROCEDURE: X-RAY CHEST ONE VIEW, PORTABLE ([id number]) IMPRESSION: 1. Interval placement of an endotracheal tube with the tip at the thoracic inlet. 2. Patchy consolidation within both lungs is similar to the prior exam. Dictated by: Patrick Merlos M.D. on 11/05/2016 at 17:02 PROCEDURE: X-RAY CHEST ONE VIEW ([id number] IMPRESSION: Bilateral peripheral patchy airspace disease is unchanged in the lungs since the previous day. No evidence for effusion and the heart size and vasculature are normal. This is not failure. Infection is most likely. Dictated by: Francois Curran M.D. on 11/06/2016 at 9:13 PROCEDURE: X-RAY CHEST ONE VIEW, PORTABLE ([id number]) IMPRESSION: Interval worsening of dense multifocal bilateral and retrocardiac consolidations since earlier same day. Recommend clinical correlation. Unchanged support equipment. Dictated by: Roney Ayala M.D. on 11/07/2016 at 8:12 . Cardiac Echo Impressions Echocardiogram Report Name: GIORGIO OBRIEN Study Date: 11/06/2016 Interpretation Summary No gross evidence for endocarditis; however, the valves are not ideally visualized. The left ventricle is normal in size. The ejection fraction is estimated to be 55-60%. The right ventricle is borderline dilated. Right ventricular systolic function is at the lower limits of normal. The IVC is of normal diameter and collapses greater than 50% with a sniff. This suggests a low right atrial pressure of 3 mm Hg. There is a trivial right-sided pleural effusion. There is a moderately large left-sided pleural effusion. . Plan Impression ASSESSMENT: 1. Acute kidney injury, multifactorial, including rhabdomyolysis, sepsis, ATN and component of intravascular volume depletion. 2. Hyperkalemia secondary to renal insufficiency, metabolic acidosis and muscle injury. 3. Hypocalcemia secondary to rhabdomyolysis and acute kidney injury. 4. Metabolic acidosis due to lactic acidosis. 5 Severe sepsis. 6. Aspiration pneumonia. 7. Metabolic encephalopathy. 8. Pancytopenia. 9. Polysubstance abuse. 10. Chronic hep c infection. PLAN: Switch NS to bicarb gtt. Continue supportive treatment. Replace Mg. Check ionized calcium. Repeat BMP, Mg, PO4 in am. Renally dose meds. Repeat UA. Bj Gonzalez Dr., MD Nov 07, 2016 12:58
--- NOTE | 2016-11-07 13:49 | PROG NOTE ---
[address] [address] PROGRESS NOTE PATIENT: GIORGIO BORIEN : 1955 MR#: [id number] ADMIT: 11/05/2016 JOB ID: [id number] DATE: 11/07/2016 PULMONARY CRITICAL CARE FOLLOWUP NOTE: PROBLEMS: 1. Polysubstance abuse. 2. Aspiration pneumonitis. 3. ARDS. 4. Shock, multifactorial. 5. Rhabdomyolysis. 6. Acute renal failure. 7. Lactic acidosis. 8. Multiple electrolyte abnormalities. 9. Thrombocytopenia. 10. Severe marrow damage. SUBJECTIVE: None. OBJECTIVE: Temperature 37.7 with T-max being 38.3, pulse about 100. Respiratory rate 20 with ventilator set at 20. Blood pressure 108/58 on ventilator set at 20. Blood pressure 108/58 on norepinephrine 0.58 mcg/kg per minute. O2 sat on FiO2 of 90%, PEEP of 7, is 97%. I and O shows 11 L in, 5.2 L out. General appearance: Sedated, paralyzed. BIS running in the low 40s for the most part. Eyes: Conjunctivae are pink. Nose and throat could not be examined. Chest: Fair breath sounds bilaterally. Diffuse crackles. With a tidal volume of 538, PEEP of 7, peak inspiratory pressure 33, plateau at 27. PEEP is set at 7, measured at seven. Heart: Regular rhythm. Heart tones seem normal. Abdomen: Soft. Slightly distended. Extremities: No pretibial edema. Hands are warm and maybe a little bit edematous. Feet are warm, though not quite as warm as his hands. LABORATORY STUDIES: White count is 1600 with 72 polymorphonuclears, no bands, 21 lymphocytes, 3 monocytes, 2 eosinophils. Hemoglobin 12.4 and relatively stable. Platelet count of 43,000 and dropping markedly. Sodium 146, potassium 5, chloride 115, CO2 16, BUN 37, creatinine 1.7, glucose 125. Lactic acid is consistently in the mid 3's. Calcium 6.3 with an albumin of 2.4. Phosphorus normal at 4.2. Magnesium mildly low at 1.5. Total bilirubin normal at 0.5. AST moderately elevated at 101. ALT mildly elevated at 60. Coagulation studies from yesterday afternoon show a pro time of 13.9 seconds, a PTT of 36 seconds, fibrinogen of 588, and a D-dimer of 8.19. HIV nonreactive. Urine for Legionella negative. Respiratory viral panel by PCR is negative. Nasal swab for MRSA is negative. Sputum shows no polys. Some mixed normal shola. Urine for Strep pneumoniae antigen is negative. DIAGNOSTIC STUDIES: Chest x-ray shows diffuse white-out of both lungs to the point of consolidation. Arterial blood gases on FiO2 of 100%, PEEP of 7, rate of 20, and a tidal volume of 530 shows a pO2 of 74, pCO2 of 50, pH 7.17. Mixed venous gases show an O2 sat of 82%. ASSESSMENT: 1. Shock: Doing somewhat better. We have been able to lower the dose of norepinephrine. In addition, hemodynamics are quite a bit better with a currently a cardiac index of 3.4 L, stroke volume index of 33 mL. This is in contradistinction to a cardiac index of 2.1 yesterday. Blood pressure is quite a bit better. Would need to back off on the fluids to help the lung at this point. We had to decrease the PEEP yesterday in order to improve the venous return. In addition, with the acidosis, would like to get rid of the chloride as currently his anion gap is in the high teens and I suspect he has both an anion gap and non-anion gap metabolic acidosis. We do not want to use lactated Ringer's due to its potassium content. Therefore, I think the best way of proceeding would be a bicarbonate drip at about 200 mL an hour, decreasing the normal saline infusion which had been running about 350 mL an hour. Will add D5 to the bicarbonate drip in order to give us a glucose source as he has been running hypoglycemic if we would do not utilize that. 2. Renal failure: Marked improvement in his renal function. Putting out goodly amounts of urine. Creatinine has come down nicely. 3. Thrombocytopenia: Continues to worsen. HIT panel has been requested and heparin has been stopped. Suspect this is more DIC then HIT as it is somewhat early, assuming the patient has not had heparin recently. Will proceed with SCDs. Will avoid the anticoagulants now as his platelet count is dropping quite quickly. No evidence of bleeding at this point. 4. Polysubstance overdose: Being sedated with fentanyl and lorazepam at the moment. Using the benzodiazepines for his amphetamine overdose. Hopefully if we can get better control of his hemodynamics and pulmonary status we can stop at least the paralytic. Do not see that we can do that at this moment. 5. Multiple electrolyte abnormalities: Will supplement the magnesium. Back off on the chloride infusion due to his probable hyperchloremic metabolic acidosis. PLAN: 1. Discontinue normal saline. 2. D5 sodium bicarbonate 150 mEq/L at 200 mL an hour. 3. 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 4. Albumin 25 g q.12. 5. Continue Levaquin and Zosyn. I think the vancomycin can be DC'ed is there is no evidence for Staph aureus. 6. Discontinue subcu heparin. 7. SCDs. 8. Discussed the situation with the patient's family. TIME: Time spent in critical care 110 minutes.
[2016-11-07 14:47] LABS: APPEARANCE,URINE CLEAR (CLEAR,HAZY); COLOR,URINE YELLOW (YELLOW); OCCULT BLOOD,URINE MODERATE (NEGATIVE); UROBILINOGEN,URINE NORMAL (NORMAL)
--- NOTE | 2016-11-07 16:29 | ABG ---
DateTimeAnalyzed 16:17:19 -_ pH ____7.232 - pCO2 ___50.1__ -mmHg pO2 ___40.5__ -mmHg HCO3- ___21.1__ -mmol/L 22.0 26.0 ABE ___-6.1__ -mmol/L tHb ___11.8__ -g/dL O2Hb ___73.6__ -% COHb ____0.8__ -% 1.5 MetHb ____0.6__ -% sO2 ___74.6__ -% FIO2 ___80.0__ -% PRVC 530 - PEEP ____7.0__ -cmH2O Set_RR 20 -b/min Vt __567.0__ -L Drawn By NSG - Date/Time Notified____ 16:29:00 -_ Spontaneous_RR 20 -b/min Oxygen Device 1 VENTILATOR - Notified By RC - Notified Whom KENDREGAN,MD - K+ ____4.0__ -mmol/L tO2 ___12.1__ -Vol% OrderingPhysicianInitials bak - Lj test N/A -
[2016-11-07 16:50] LABS: Phosphorus 3.3 mg/dL (2.5-4.9)
[2016-11-07 16:58] LABS: Mean Corpuscular Hemoglobin 30.1 pg (27.0-35.0); Mean Corpuscular Volume 95 fL (81-100)
[2016-11-07 16:59] LABS: BASOPHILS % (AUTO) 0 % (0-3); EOSINOPHILS % (AUTO) 0 % (0-5); MONOCYTES % (AUTO) 0 % (4-12); NEUTROPHILS % (AUTO) 20 % (40-74); Platelet Count 36 bil/L (150-400)
[2016-11-07] MEDS ORDERED: Vancomycin Inj 750 MG in 0.9% Sodium Chloride 250 ML IV SCH (17:30)
--- NOTE | 2016-11-07 18:45 | NUR ---
Cardiac/BIS/TOF/temp Pt continues to be on levophed at 0.56, attempted to titrate down but unable to. TELE ST with no ectopy. TOF 1/4 throughout shift, BIS between 41-60, titrating sedation accordingly (see CCU flow sheet). Temp t-max 38.0 aux. Continuous rotation and q2h turns continue
[2016-11-07] MEDS: Famotidine Inj 20 MG in IV Premix 1 EACH IV SCH (20:23)
[2016-11-07] MEDS: Albumin 25% 25 GM in IV Premix 1 EACH IV SCH (20:23)
--- NOTE | 2016-11-07 21:31 | ABG ---
DateTimeAnalyzed 21:25:00 -_ pH ____7.259 - 7.350 7.450 pCO2 ___50.9__ -mmHg 35.0 45.0 pO2 ___59.6__ -mmHg 69.0 116 HCO3- ___22.0__ -mmol/L 22.0 26.0 ABE ___-4.8__ -mmol/L -2.0 2.0 tHb ___11.3__ -g/dL O2Hb ___88.5__ -% COHb ____0.6__ -% MetHb ____1.1__ -% sO2 ___90.0__ -% 25.0 FIO2 __100.0__ -% PRVC 20 - PEEP ____7.0__ -cmH2O Vt __530.0__ -L Drawn By blf - Date/Time Notified____ 21:30:00 -_ Spontaneous_RR ___20.0__ -b/min Oxygen Device 1 VENTILATOR - Notified By blf - Notified Whom RENEE HOUSTON RN - B 761 -mmHg tO2 ___14.1__ -Vol% OrderingPhysicianInitials bak - Lj test _Positive -
[2016-11-08] VITALS (12 sets, daily range): BP systolic 97–134; BP diastolic 50–73; PULSE 88–101; RESP 28; O2SAT 89–94
[2016-11-08] MEDS: Chlorhexidine 0.12% 15 mL Oral Solution MT SCH ×6 (00:08→19:58)
[2016-11-08] MEDS: fentaNYL 2,500 mCg/250 mL 2,500 MCG in IV Premix 1 EACH IV PRN (00:08)
--- NOTE | 2016-11-08 00:32 | ABG ---
DateTimeAnalyzed 00:26:02 -_ pH ____7.316 - 7.350 7.450 pCO2 ___46.0__ -mmHg 35.0 45.0 pO2 ___67.0__ -mmHg 69.0 116 HCO3- ___23.5__ -mmol/L 22.0 26.0 ABE ___-2.5__ -mmol/L tHb ___10.5__ -g/dL O2Hb ___92.7__ -% COHb ____0.9__ -% 1.5 MetHb ____0.6__ -% sO2 ___94.1__ -% FIO2 __100.0__ -% PRVC 28 - PEEP ___10.0__ -cmH2O Vt __440.0__ -L Drawn By blf - Date/Time Notified____ 00:32:00 -_ Spontaneous_RR 28 -b/min Oxygen Device 1 VENTILATOR - Notified By BLF - Notified Whom ___DR. SULLENBERGER -____ K+ ____3.6__ -mmol/L tO2 ___13.7__ -Vol% Lj test _Positive -
[2016-11-08] MEDS: LORazepam 100 mg/100 mL Drip IV PRN ×2 (00:36)
[2016-11-08] MEDS: Norepineph 8,000 mCg/250 mL NS 8,000 MCG in IV Premix 1 EACH IV SCH ×3 (00:36→08:56)
[2016-11-08] MEDS: Sodium Bicarb 8.4% Inj 150 MEQ in Dextrose 5% 1,000 ML IV SCH (01:49)
[2016-11-08 04:31] LABS: Mean Corpuscular Hemoglobin 31.1 pg (27.0-35.0); Mean Corpuscular Volume 93.7 fL (81-100)
[2016-11-08 04:32] LABS: Platelet Count 30 bil/L (150-400)
[2016-11-08 04:52] LABS: MONOCYTES % (AUTO) 6 % (4-12); NEUTROPHILS % (AUTO) 49 % (40-74)
[2016-11-08 04:53] LABS: BASOPHILS % (AUTO) 0 % (0-3); EOSINOPHILS % (AUTO) 0 % (0-5)
[2016-11-08 05:25] LABS: Magnesium 1.7 mg/dL (1.6-2.6); Phosphorus 2.9 mg/dL (2.5-4.9)
--- NOTE | 2016-11-08 05:37 | ABG ---
DateTimeAnalyzed 05:30:19 -_ pH ____7.339 - 7.350 7.450 pCO2 ___47.0__ -mmHg 35.0 45.0 pO2 ___63.9__ -mmHg 69.0 116 HCO3- ___25.3__ -mmol/L 22.0 26.0 ABE ___-0.5__ -mmol/L tHb ___10.3__ -g/dL O2Hb ___92.3__ -% COHb ____0.8__ -% 1.5 MetHb ____0.2__ -% sO2 ___93.3__ -% FIO2 __100.0__ -% PRVC 28 - PEEP ___10.0__ -cmH2O Vt __440.0__ -L Drawn By blf - Date/Time Notified____ 05:36:00 -_ Spontaneous_RR 28 -b/min Oxygen Device 1 VENTILATOR - Notified By BLF - Notified Whom RENEE HOUSTON RN - K+ ____3.6__ -mmol/L tO2 ___13.5__ -Vol% Lj test N/A -
--- NOTE | 2016-11-08 05:55 | NUR ---
Hypotension/Respiratory/Labs/Febrile Resp: Increase fio2 to 100% around [address] Juárez, sp02 91-93% abg: @2114 pH 7.25, pC02 51, p02 59, hc03 22, notified Dr. Hinton w/ new vent changes(peep up to 10+, RR 20 to 28, VT from 530 to 440). @0016 pH 7.32, pc02 46, p02 67, hco3 24. @0520 pH 7.34, pc02 47, p02 64, hc02 25 D/c' d bicarb gtt. Hypotension slowly titrated down levo gtt now @ 0.4 (0.55) mcg/kg/min, cvp 10 to 14, uo adequate from june. Lab: AM lab with plt 30, NA 152, ca 6.6, lactic acid 4.4, Hospitalist notified with no new order. Febrile Tmax 39.0, given tylenol 650mg AL, applied cooling measure, latest temp 38.2C. BIS 46 to 32, decreased fentanyl to 50 mcg/hr and ativan to 2mg/hr. TOF 2/4 @ 6MA, nimbex at 2 mcg/kg/min.
[2016-11-08] MEDS: Cisatracurium Inj 200,000 MCG in 0.9% Sodium Chloride-Pha MIX 100 ML IV SCH (06:41)
[2016-11-08] MEDS: Piperacillin-Tazo 3.375 Gm Inj 3.375 GM in Dextrose 5% Minibag Plus 50 ML IV SCH ×2 (06:41→17:23)
[2016-11-08] MEDS ORDERED: levoFLOXacin Inj 500 MG in IV Premix 1 EACH IV SCH (08:30)
[2016-11-08] MEDS: Albumin 25% 25 GM in IV Premix 1 EACH IV SCH ×2 (08:52→20:16)
--- NOTE | 2016-11-08 10:19 | PCM.PROC ---
Procedure Note Date of Service: Nov 08, 2016 Pre Procedure Diagnosis: Shock, multifactorial Post Procedure Diagnosis: Shock, multifactorial Procedure: Arterial line placement Provider and Director Of Enterprise Strategy: Resident: Renata Montelongo Attending: Agus Juárez Indication for Procedure: Hemodynamic monitoring Procedural Analgesia: Sedated with Fentanyl and Versed Procedure Details: A time-out was completed verifying correct patient, procedure, site, positioning , and special equipment if applicable. The patients right wrist was prepped and draped in sterile fashion. An 18G Arrow arterial line was introduced into the radial artery. The catheter was threaded over the guide wire and the needle was removed with appropriate pulsatile blood return. The catheter was then secured in place to the skin with a sterile dressing applied. Perfusion to the extremity distal to the point of catheter insertion was checked and found to be adequate. Dr. Juárez was present for the entire procedure. Estimated Blood Loss: 5 cc The patient tolerated the procedure well and there were no complications. Attending Statement I was present for and supervised the entire procedure. Date of Procedure: 11/08/2016 Renata Montelongo DO Nov 08, 2016 10:19 Agus Juárez MD Nov 30, 2016 11:21
--- NOTE | 2016-11-08 10:56 | DRSVH ---
PROCEDURE: X-RAY CHEST ONE VIEW ([id number]) INDICATIONS: Respiratory distress TECHNIQUE: One view of the chest was acquired. COMPARISON: [facility], CR, XR CHEST 1VW (PORTABLE), 11/07/2016, 4:57. [facility], CR, XR CHEST 1VW, 11/06/2016, 3:42. FINDINGS: Surgical changes and devices: Stable position of ETT, right IJ CVL nasogastric tube. Lungs and pleura: Diffuse, widespread bilateral pulmonary interstitial and air space opacities are p resent not significantly changed from prior examination. Small bibasilar pleural effusions present, right greater left. No pneumothorax. Mediastinum: Mediastinal contours appear normal. Heart size is normal. Bones and chest wall: No suspicious bony lesions. Overlying soft tissues appear unremarkable. IMPRESSION: 1. No significant change in pulmonary edema and/or diffuse bilateral pneumonia. 2. Small pleural effusions, right greater than left. Dictated by: Joselo Horvath RRA Interpreted: Genesis Topete MD on 11/08/2016 at 8:07 Approved by: Genesis Topete M.D. on 11/08/2016 at 10:54
--- NOTE | 2016-11-08 11:13 | NUR ---
NUTRITION ASSESSMENT Assess: 61 YO M admitted to CCU for aspiration pneumonia, sepsis, ARF, and polysubstance abuse. Pt is currently intubated. Plan to start trophic tube feeds with renal formula today per Dr. Juárez. Pt has been without adequate nutrition X 3 days. PMHX: Heroin use, chronic back pain, DJD, glucose intolerance, kidney stones. DIET: NPO X 3 days. LABS: Na 152, Cr 1.33, Glu 130, Lactic acid 4.4, AST 57, ALT 46, Alb 2.2 MEDICATIONS: Reviewed. Albumin, Pressor, Nimbex, Fentanyl. GI: No BM noted. SKIN: No issues noted. ANTHROPOMETRICS: Wt 88.1 kg, BMI 27.9 kg/m2, Admit wt: 74.6 kg. ESTIMATED NEEDS: VENT Calories: 1363-1456 kcal/day (20-25 kcal/kg BW) Protein: 132-159 g/day (1.5-1.8 g/kg BW) Fluids: 4370-1293 ml/day (25-30 ml/kg) NUTRITION DIAGNOSIS: 1) Inadequate oral intake related to decreased ability to consume sufficient energy as evidenced by NPO/Vent status. INTERVENTION: 1) Recommend TF of Nepro at 10 ml/hr. Orders to be placed in chart. 2) Once TF tolerance established, recommend TF of Nepro @ 10 ml/hr, advance 10 ml q 6 hr to goal rate of 55 ml/hr. At goal TF will provide 2178 kcal, 98 g protein; meeting 100% calorie, 74% of protein needs. Once tolerance established, consider adding Prosource protein depending on current renal status. MONITOR/EVALUATE: NPO/Vent status, TF tolerance/advance, labs, POC, GI/nutrition status. Follow per high nutrition risk guidelines.
--- NOTE | 2016-11-08 11:41 | PROG NOTE ---
[address] [address] PROGRESS NOTE PATIENT: GIORGIO OBRIEN : 1955 MR#: [id number] ADMIT: 11/05/2016 JOB ID: [id number] DATE: 11/08/2016 PROBLEMS: 1. Polysubstance abuse, with overdose probably with amphetamine and opiates. 2. Aspiration pneumonitis. 3. Acute respiratory distress syndrome secondary to #2 and #1. 4. Shock, multifactorial. 5. Rhabdomyolysis. 6. Acute renal failure. 7. Lactic acidosis. 8. Multiple electrolyte abnormalities. 9. Thrombocytopenia, likely secondary to DIC. 10. Severe marrow damage. SUBJECTIVE: None. OBJECTIVE: Temperature 38.2, with T-max being 38.5. Pulse mid 90s. Respiratory rate 28 with ventilator set at 28. Blood pressure 109/66, on norepinephrine 0.2 mcg/kg per minute. O2 sat on FiO2 of 1, with a PEEP of 10 is 92%. I and O shows 10 L in, 5.3 L out. Sedated, paralyzed on the ventilator. Pupils about 1 mm. Skin not diaphoretic. Warm. Nose and throat could not be examined. Chest: Coarse crackles throughout both lung villanueva. Peak inspiratory pressure 33, plateau 24. PEEP set at 10, measured at 10. Heart: Regular rhythm. Heart tones normal. Abdomen is soft. Quiet. Extremities: Warm. Some edema of upper extremities, less so of lower extremities. LABORATORY VALUES: Shows a white count of 8000 with 49 polymorphonuclears, 26 bands, 4 metamyelocytes, 2 myelocytes, 13 lymphs, 6 monos. No eos. Hemoglobin at 10.3, down from 12.5 yesterday morning. It peaked at 12.4. Platelet count 30,000, and continuing to decrease, but slowing down. Sodium 142, potassium 4.1, chloride 116, carbon dioxide 22, BUN 25, creatinine 1.3, down from 1.7 yesterday, 24 hours ago. Calcium 6.6 with albumin of 2.2. Phosphorus 2.9. Magnesium 1.7. Total bilirubin 0.5. AST 57 and falling. ALT 46 and falling. Alkaline phos normal at 43. CK 226, down from a peak of 6072 on admission. Chest x-ray shows a complete whiteout of both lungs with a normal size heart. ASSESSMENT: 1. Shock. Situation is improving. Decreasing norepinephrine needs. Blood pressure currently 109/66. He has good right radial arterial pulse. Will evaluate for arterial line placement so we can monitor his blood pressure better. 2. Adult respiratory distress syndrome. Significant A-aDO2 gradient. Would like to curtail fluids. Will need to reassess his fluid status. 3. Renal failure. Continuing to improve. CK has come down nicely. Normal at this point. Good urine output. Creatinine normalizing, with a current creatinine of 1.33. BUN fairly normal at 25. 4. Disseminated intravascular coagulopathy (DIC). Platelet count continuing to decrease. However, rate of fall seems to be slowing. No evidence of bleeding at this point. 5. Acid-base problems. Sodium is 152. PLAN: 1. Continue current vent settings. 2. Radial arterial line. 3. Closer hemodynamic monitoring. 4. Free water deficit a bit over 2 L. 5. Even though this suggests sedation, will raise the fentanyl and Ativan a bit given his use of amphetamines and opiates. 6. Discontinue bicarbonate infusion. 7. Continue albumin infusions. 8. Discussed at length with nursing various subspecialties. TIME SPENT: Time spent so far in critical care is 1 hour 48 minutes.
[2016-11-08 12:08] LABS: Mean Corpuscular Hemoglobin 30.4 pg (27.0-35.0); Mean Corpuscular Volume 92.9 fL (81-100)
[2016-11-08 12:16] LABS: Platelet Count 32 bil/L (150-400)
[2016-11-08 12:41] LABS: Magnesium 1.9 mg/dL (1.6-2.6)
[2016-11-08 12:45] LABS: BASOPHILS % (AUTO) 0 % (0-3); EOSINOPHILS % (AUTO) 0 % (0-5); MONOCYTES % (AUTO) 5 % (4-12); NEUTROPHILS % (AUTO) 80 % (40-74)
--- NOTE | 2016-11-08 13:23 | PCM.PNMED ---
Subjective Date of Service Nov 08, 2016 Subjective 61-year-old male with history of substance abuse presents with acute respiratory failure with hypoxia, toxic encephalopathy and sepsis. Sedated, paralyzed due to agitation on ventilator, and unable to give history. Blood pressure has stabilized, rhabdomyolysis renal failure is improving, but ARDS has worsened. Exam Vital Signs Vital Sign - Last Date Time Temp Pulse Resp B/P Pulse Ox O2 Delivery O2 Flow Rate FiO2 11/08/16 12:30 38.8 101 28 118/58 90 Mechanical Ventilator 100 Intake and Output 11/07/16 11/07/16 11/08/16 Cumulative From/Thru 15:00 23:00 07:00 11/05/16 16:16 - 11/08/16 06:40 Intake Total 7512 ml 2853 ml 33614 ml Output Total 3360 ml 1950 ml 37139 ml Balance 4152 ml 903 ml 48509 ml IV Total 7512 ml 2853 ml 25684 ml Output Urine Total 3350 ml 1950 ml 08854 ml Gastric Drainage Total 10 ml 85 ml # Bowel Movements 0 0 Exam General: Middle-age man, sedated on ventilator HEENT: sclerae anicteric, face symmetric, atraumatic Neck: Difficult to assess JVD Chest: Diffuse coarse rhonchi bilaterally Cardiac: S1S2, regular, no murmur Abdomen: BS reduced but present, no rigidity Extremities: Forearm edema, trace pedal edema, no acute swelling or trauma Neuro: Obtunded, paralyzed Lab and Diagnostics Result Diagram: 11/08/16 1145 11/08/16 1145 X-Rays, CTs and MRIs PROCEDURE: X-RAY CHEST ONE VIEW, PORTABLE ([id number]) IMPRESSION: Patchy bilateral pneumonia. Pulmonary hemorrhage or atypical pulmonary edema may also have this appearance. Please correlate clinically. Dictated by: Patrick Merlos M.D. on 11/05/2016 at 16:23 . PROCEDURE: X-RAY CHEST ONE VIEW, PORTABLE ([id number]) IMPRESSION: 1. Interval placement of an endotracheal tube with the tip at the thoracic inlet. 2. Patchy consolidation within both lungs is similar to the prior exam. Dictated by: Patrick Merlos M.D. on 11/05/2016 at 17:02 PROCEDURE: X-RAY CHEST ONE VIEW ([id number] IMPRESSION: Bilateral peripheral patchy airspace disease is unchanged in the lungs since the previous day. No evidence for effusion and the heart size and vasculature are normal. This is not failure. Infection is most likely. Dictated by: Francois Curran M.D. on 11/06/2016 at 9:13 PROCEDURE: X-RAY CHEST ONE VIEW, PORTABLE ([id number]) IMPRESSION: Interval worsening of dense multifocal bilateral and retrocardiac consolidations since earlier same day. Recommend clinical correlation. Unchanged support equipment. Dictated by: Roney Ayala M.D. on 11/07/2016 at 8:12 . Cardiac Echo Impressions Echocardiogram Report Name: GIORGIO OBRIEN Study Date: 11/06/2016 Interpretation Summary No gross evidence for endocarditis; however, the valves are not ideally visualized. The left ventricle is normal in size. The ejection fraction is estimated to be 55-60%. The right ventricle is borderline dilated. Right ventricular systolic function is at the lower limits of normal. The IVC is of normal diameter and collapses greater than 50% with a sniff. This suggests a low right atrial pressure of 3 mm Hg. There is a trivial right-sided pleural effusion. There is a moderately large left-sided pleural effusion. . Assessment & Plan 61-year-old man with opioid abuse disorder presents with acute respiratory failure with hypoxia, ARDS versus aspiration pneumonia, and encephalopathy related to hypoxia and probable opioid toxicity. # Sepsis, acute. SIRS criteria on admission: Tachycardia heart rate 113, tachypnea RR 30, temperature 39.8, neutropenia WBC 1.9 with left shift 64% immature forms. Lactic acid 3.5, persistent in range of 2.9-4.6 despite aggressive fluid resuscitation. Presumed due to aspiration pneumonia and septic shock. - Hemodynamic support to maintain MAP and urine output - Antibiotics: Zosyn, Levaquin # Cardiac: Hemodynamics & Rhythm - on admission sinus tachycardia rhythm, troponin T normal. No significant LV dysfunction. Severe hypovolemia, now with hypernatremia. Has received copious fluid resuscitation. Currently requiring high-dose norepinephrine. - Telemetry monitoring - Fluids and pressors to maintain MAP greater than 65 mmHg # Respiratory status - ARDS versus aspiration pneumonia. No evidence for cardiogenic pulmonary edema. Oxygenation status has steadily worsened on FiO2 1.0 with PEEP 10. - Ventilator bundle; tidal volume for ARDS: Nimbex, fentanyl, midazolam - Pulmonary consult - Repeat chest x-ray in a.m. # Lines, I/O's, fluids and electrolytes - Hyponatremia sodium 129 on admission , developed hypernatremia sodium 152 on 11/08 due to free water depletion. Hyperkalemia range 4.8-5.9, now normal. Hypocalcemia, but ionized calcium has been essentially normal. - Maintain CVC - Judd catheter monitor urine output - Change IV fluids to hypotonic D5 with sodium bicarbonate - Increased free water flushes with tube feeds - Daily BMP # Renal - Acute renal failure with creatinine 7.88 on admission, now declined to ~1.4. Rhabdomyolysis CPK 6072 is rapidly declining, now 887. Metabolic acidosis, anion gap 25 on admission. Persistent lactic acid elevation due to tissue hypoperfusion on high-dose norepinephrine. Phosphorus 3.8 on admission, peaked at 7.3, now normal. Urine output has been robust, possible post ATN diuresis. - Daily BMP - Goal urine output greater than 0.5 mL/KG/MR # Hematological - Marked neutropenia with leukemoid reaction likely related to acute sepsis. Neutropenia is now resolved. Platelet drop began too early for HIT. Anti-PF4 antibody is pending. Mild abnormalities of coagulation, no significant drop in fibrinogen. Possible low-grade DIC but no clinical evidence of thrombosis or worsening organ dysfunction other than ARDS. No indication for platelet or coagulation factor replacement at this time. - Follow CBC with differential - Holding off heparin at present - Repeat coags # GI, diabetes, and nutritional status - abdomen seems nonacute. Mild transaminase elevation but no hepatic failure. Glucose is normal. Patient nothing by mouth proximally 5 days, since 1-2 days prior to admission. - Nutrition consult, - initiate enteral feeds by OG-tube on 11/08 # Neurological - Initially toxic encephalopathy due to opioids, metabolic encephalopathy due to hypoxia. Now ventilator sedation. - Monitor clinical status - Weight clinical stabilization before reducing sedation and paralysis # Infectious disease status - aspiration pneumonia. MRSA swab negative - Zosyn, levofloxacin for aspiration pneumonia - ID consult # Pain status - stable on ventilator sedation # Venous thromboembolism prophylaxis: - Subcutaneous heparin # GI prophylaxis: - IV famotidine every 12 # Goals of care, expected hospital duration, discharge planning: - Admitted to inpatient status in CCU due to life-threatening critical illness, with expectation of care greater than 48 hours - Full code VTE Mechanical Devices: Intermittant Pneumatic CD Resuscitation Status: CPR: Attempt Resuscitation Time spent 35 minutes, assessment and review of data with consultants Magno Armendariz MD Nov 08, 2016 13:23
--- NOTE | 2016-11-08 13:49 | PCM.PNNEPH ---
GironKimmy zuniga DO 11/08/16 1349: Subjective Date of Service Nov 08, 2016 Subjective Patient intubated and sedated so no ROS could be obtained. Able to titrate norepiephrine down overnight. Exam Vital Signs Vital Sign - Last Date Time Temp Pulse Resp B/P Pulse Ox O2 Delivery O2 Flow Rate FiO2 11/08/16 12:30 38.8 101 28 118/58 90 Mechanical Ventilator 100 Intake and Output 11/07/16 11/07/16 11/08/16 Cumulative From/Thru 15:00 23:00 07:00 11/05/16 16:16 - 11/08/16 06:40 Intake Total 7512 ml 2853 ml 63019 ml Output Total 3360 ml 1950 ml 08613 ml Balance 4152 ml 903 ml 63888 ml IV Total 7512 ml 2853 ml 65153 ml Output Urine Total 3350 ml 1950 ml 29146 ml Gastric Drainage Total 10 ml 85 ml # Bowel Movements 0 0 Exam Intubated, sedated and paralyzed in the ICU. Neck: No appreciable JVD; right IJ Chest: Diffuse coarse breath sounds Cardiac: RRR, no murmur appreciated Abdomen: Slow bowel tones, abdomen firm Judd catheter present Extremities: No cyanosis,clubbing, edema; right radial arterial line Radial and dorsalis pedis pulses present and equivalent bilaterally IVs and Medications Medications Reviewed: Medications were reviewed in detail Lab and Diagnostics Result Diagram: 11/08/16 1145 11/08/16 1145 Plan Plan: 1. Acute kidney injury, improving. - Likely multifactorial and secondary to sepsis, ATN, and volume depletion. Also some concern for rhabdomyolysis at time of admission. - Patient appears to have been adequately fluid resuscitated now with excellent urine output. - Continue to monitor BMP. - Avoid nephrotoxic medications and renally dose medications. 2. Hypernatremia, acute. - Free water deficit calculated to be about 3.7L. - Give D5 1/3 NS at a slower rate; perhaps 50 mL/hr. - Once able to tolerate feeding through the NG tube increase free water flushes. - Continue to monitor BMP. 3. Hyperkalemia, resolved. 4. Hypocalcemia, improving. - Likely secondary to ROCÍO. - Continue to monitor BMP. 5 Severe sepsis. 6. ARDS secondary to presumed aspiration pneumonia. 7. Metabolic encephalopathy. 8. Pancytopenia, improving. 9. Polysubstance abuse. 10. Chronic hep c infection. Girma Fay DO 11/08/16 1613: Exam Lab and Diagnostics Result Diagram: 11/08/16 1145 11/08/16 1145 Plan Plan: Pt. seen and examined w/ Dr. Giron and Dr. Cancino, I agree with the note and would rec. minimizing further IVF, give several doses of albumin, follow hemodynamic parameters and I&Os Kimmy Giron DO Nov 08, 2016 13:49 Girma Fay DO Nov 08, 2016 16:13
[2016-11-08] MEDS: Dextrose 5% 0.225% NaCl 1,000 ML IV SCH (14:54)
--- NOTE | 2016-11-08 15:49 | NUR ---
Wound note 61 yo male admitted to [facility] 11/07 with sepsis and toxic encephalopathy. Seen for skin assessment due to low Bhavin score. Only skin issues noted was a small (< 1 cm ) skin tear at left forearm and nonblanchable 1 cm diameter area at the left Achilles possibly from SCD's. No dressings recommended for either of these areas, heels floated and frequent repositioning should be beneficial.
--- NOTE | 2016-11-08 17:44 | NUR ---
P: Alteration in respiratory Status I: Pt's ABG slightly improved. Peep at 10 and FiO2 100%. Sats have improved throughout the day from 88% to 94%. NSR/ST. Tmax 38.8 axillary. Tried turning nimbex gtt down to 1mcqs/kg/min but peak pressures went up. Nimbex turned up to 1.5mcqs/kg/min. Train of four 2:4 and BIS 36-55 with one episode of 88. Fentanyl increased to 75mcqs and ativan increased to 3mg/hr. OGT LIS with 50cc of green thick output. Judd patent and drained 750cc of simon urine. CVP 11 and 16. Cheetah dc'd and arterial line placed right radial and Vigileo connected. Hemodynamically stable. Norepinephrine gtt off but had to be restarted at 0.05mcqs/kg/min after BP and MAP started trending down. D5.2NS Iv started at 70cc/hr to help decrease sodium level. Lactic acid checked Q 4 hours and last one at 1630 3.8. Family at bedside and updated on pt's condition and plan of care. Complete bath, bunny care, chlora bath and linen changed. Wound care nurse here to see skin. Pt on CLRT and this afternoon he was finally stable enough to do a small turn without him desating. SCD's on. E: Guarded but slightly improved. S: Restraints not needed due to nimbex. Frequent rounding.
--- NOTE | 2016-11-08 17:48 | ABG ---
DateTimeAnalyzed 17:38:38 -_ pH ____7.308 - 7.350 7.450 pCO2 ___45.9__ -mmHg 35.0 45.0 pO2 ___75.8__ -mmHg 69.0 116 HCO3- ___23.0__ -mmol/L 22.0 26.0 ABE ___-3.0__ -mmol/L tHb ____9.6__ -g/dL O2Hb ___93.6__ -% COHb ____1.0__ -% 1.5 MetHb ____0.6__ -% sO2 ___95.1__ -% FIO2 ___21.0__ -% PRVC 28 - PEEP ___10.0__ -cmH2O Vt __410.0__ -L Drawn By gj - Date/Time Notified____ 17:48:00 -_ Spontaneous_RR 28 -b/min Oxygen Device 1 VENTILATOR - Notified By gj - Notified Whom ___DR. KENDREGAN - K+ ____3.0__ -mmol/L tO2 ___12.7__ -Vol% Lj test N/A -
[2016-11-08] MEDS: Famotidine Inj 20 MG in IV Premix 1 EACH IV SCH (19:58)
--- NOTE | 2016-11-08 20:56 | CONS ---
[address] [address] CONSULTATION REPORT PATIENT: GIORGIO OBRIEN : 1955 MR#: [id number] ADMIT: 11/05/2016 JOB ID: [id number] DATE OF SERVICE: 11/08/[address] Agus Juárez for this consult. REASON FOR CONSULTATION: Ventilator-dependent respiratory failure with bilateral pulmonary infiltrates due to severe aspiration pneumonia. HISTORY OF PRESENT ILLNESS: I initially had a chance to briefly see this patient on the afternoon of Tuesday, November 05, with Dr. Juárez in the ED. I was down there seeing another patient and I stopped and reviewed the case briefly with Dr. Juárez and looked at the chest radiograph. Today, I was formally consulted on this case. The patient is a 61-year-old gentleman with a history of polysubstance abuse. Reviewing the old records, it is clear that he has had a history of significant alcohol abuse in the past which caused pancreatitis as well as other issues. More recently, the patient has had problems with heroin and methamphetamine which led to a long stay in rehabilitation which ended apparently on November 03 when he left the rehab facility. He subsequently returned to his home in this area where he initially appeared okay, but then was found 24-36 hours later lying on the floor very short of breath and quite critically ill. He was transported to the ED and due to agitation and shortness of breath and a pending respiratory failure, he required intubation in the ED on Tuesday which is when I had the chance to briefly see him. At that point, he was awake but very agitated and subsequently required paralysis with Nimbex which persists until this time. In addition, he has had periods of hypotension requiring vasopressor agents though these were successfully weaned off this morning. He has had evidence of systemic infection in terms of fever as well as grossly elevated procalcitonin, lactate levels and bandemia. He has been treated appropriately and aggressively and is currently on a combination of Zosyn and levofloxacin for antibiotics for a presumed massive aspiration pneumonia. His chest radiographs have worsened throughout his hospital stay and now he has truly extraordinary chest x-rays where the entire central portion of both lungs is "roxie out." As noted, he is off vasopressors but remains critically ill, intubated and paralyzed on 100% FiO2 and 10 of PEEP, as I dictate this here in the ICU at [facility]. Obviously, no history can be obtained from the patient and there are no family members available. I was around Tuesday afternoon though in the ED when there were family members and they stated basically the history as noted above that the patient returned from rehab sometime late Tuesday and was found on Tuesday with respiratory difficulty, altered mental status and critical illness. What transpired between Tuesday when he got home and Tuesday when he was found in that condition remains unknown, but urine tox screen is positive for opiates and amphetamines suggesting at least part of these events followed from drug use. PAST MEDICAL HISTORY: 1. Polysubstance abuse. a. Heroin. b. Methamphetamine. c. Alcohol. 2. Pancreatitis. 3. Pneumonia. 4. Chronic back pain. 5. Note that the patient has two separate abdominal scars. Review of the available records does not disclose any abdominal surgeries and these may be quite old, but there must have been some other pathology at some point. SOCIAL HISTORY: Notable for polysubstance abuse. There is a report that the patient is a cigarette smoker and has been for about half a century or since the age of 11. I cannot question the patient any further about his social history as he is intubated, sedated and paralyzed. FAMILY HISTORY: Likewise not available in this intubated, sedated and paralyzed gentleman. REVIEW OF SYSTEMS: Unobtainable as the patient is currently paralyzed and intubated. PHYSICAL EXAMINATION: Reveals a critically ill, gentleman lying supine in his ICU bed. Temperature 38.2 a few hours ago and 38.8 just right now as the nurse just obtained vital signs. Pulse 94, and that appears to be a sinus rhythm on the monitor. Blood pressure 128/66, and he is off vasopressors. His O2 sat is only running 89-90 despite being on 100% FiO2 and 10 of PEEP. The head is without evidence of any trauma. The eyes are notable for some conjunctival hyperemia but without proptosis or other abnormalities such as conjunctivitis. Nose appears normal. Oral gastric tube, oral endotracheal tube are in place. The lips are without evidence of herpetic change. Patient's neck is without adenopathy or significant JVD. A right IJ central line is in good position, appears uninflamed. There is no cervical or supraclavicular adenopathy. His lungs sound truly terrible bilaterally with coarse rales and rhonchi extensively through both lung villanueva and dramatically reduced airflow through both lung villanueva. Cardiac tones are a bit hard to hear over the ventilator, but is regular rate and rhythm at least without a very loud murmur notable. The patient's abdomen is slightly distended diffusely. I do not appreciate ascites, however. There is no demonstrable hepatosplenomegaly at this point. He has no inguinal adenopathy. His scrotum and penis are swollen to about 50% greater than normal size it would appear. His Judd catheter is in good position. There is clear yellow urine being produced. The lower extremities are edematous with about 2+ edema up to the knees bilaterally and perhaps a trace up into the thighs. There is no evidence for synovitis, skin breakdown or cellulitis. His feet are reasonably well perfused with minimal but palpable pulses in the feet. Neurologic exam, of course, cannot be done on a paralyzed individual nor can I assess his mental status. LABORATORIES: Include a white count when he came in 1100 which included 10% bands. His current white count is up to 8000 and includes 26% bands, 4% metamyelocytes and 2% myelocytes. His platelet count is 30,000, and it has been dropping since admission when it was 178,000 and normal. Coag studies include INR of 1.29, fibrinogen is 588. Urinalysis had no white cells. HIT antibodies are pending. HIV negative. Urine Legionella and pneumococcal antigens are negative. MRSA screen negative. Respiratory viral PCR panel negative. Tracheal aspirate: No polys, mixed shola and all blood cultures have been negative. Urine culture negative. IMAGING: Was carefully reviewed with the ICU team, and I reviewed it myself as well. His chest x-ray even from admission had patchy bilateral infiltrates. Those x-rays have dramatically worsened. Today's radiograph shows diffuse bilateral interstitial and airspace opacities, which are dramatic. There is no CT scan of the chest at this point. An abdominal ultrasound was also done which showed a prominent gallbladder with some sludge. IMPRESSION: This is an unfortunate gentleman with terrible bilateral pulmonary infiltrates and a great deal of respiratory difficulty who is barely oxygenating despite 100% FiO2 with 10 of PEEP at this point. His x-ray as well as his lung findings suggest an overwhelming pulmonary insult which I think is probably a mixture of chemical pneumonitis, bacterial aspiration pneumonitis, acute respiratory distress syndrome due to the numerous insults he suffered, and possibly opiate or amphetamine-induced direct lung toxicity and/or noncardiogenic pulmonary edema. I agree with the antibiotics that have been chosen in terms of Zosyn and the addition of levofloxacin. This provides excellent coverage for aspiration-type pneumonia pathogens as well as both nosocomial and community-acquired pulmonary pathogens. I cannot think of an additional appropriate maneuver to change his antibiotic coverage at this point and suspect his fevers and other toxicity are on the basis of this overwhelming pneumonia. Note that the patient is only about 2-1/2 days into this since his time of admission and intubation and it may take 3, 4 or 5 days for his fevers and overall infectious situation to start to improve even if the antibiotics are most appropriate and I think that they are. RECOMMENDATIONS: 1. Will continue with the broad-spectrum antibiotics. 2. Will continue to closely follow his elevated procalcitonin with a lactate as well as his white count and platelet count. 3. This case discussed in detail during ICU rounds as well as previously.
[2016-11-09] VITALS (13 sets, daily range): BP systolic 92–128; BP diastolic 46–57; PULSE 84–91; RESP 28–30; O2SAT 90–97
[2016-11-09] MEDS: Chlorhexidine 0.12% 15 mL Oral Solution MT SCH ×7 (00:13→23:30)
[2016-11-09] MEDS: fentaNYL 2,500 mCg/250 mL 2,500 MCG in IV Premix 1 EACH IV PRN ×2 (00:19→23:28)
[2016-11-09] MEDS: LORazepam 100 mg/100 mL Drip IV PRN ×4 (00:43→23:28)
[2016-11-09] MEDS: Dextrose 5% 0.225% NaCl 1,000 ML IV SCH (04:17)
[2016-11-09] MEDS: Cisatracurium Inj 200,000 MCG in 0.9% Sodium Chloride-Pha MIX 100 ML IV SCH ×2 (04:17→12:00)
[2016-11-09 04:21] LABS: Mean Corpuscular Hemoglobin 30.4 pg (27.0-35.0); Mean Corpuscular Volume 93.9 fL (81-100)
[2016-11-09 04:23] LABS: Platelet Count 32 bil/L (150-400)
[2016-11-09 04:38] LABS: BASOPHILS % (AUTO) 0 % (0-3); EOSINOPHILS % (AUTO) 2 % (0-5); MONOCYTES % (AUTO) 4 % (4-12); NEUTROPHILS % (AUTO) 66 % (40-74)
--- NOTE | 2016-11-09 04:42 | ABG ---
DateTimeAnalyzed 04:36:16 -_ pH ____7.304 - 7.350 7.450 pCO2 ___51.3__ -mmHg 35.0 45.0 pO2 ___81.0__ -mmHg 69.0 116 HCO3- ___25.4__ -mmol/L 22.0 26.0 ABE ___-0.9__ -mmol/L tHb ____9.9__ -g/dL O2Hb ___94.6__ -% COHb ____1.0__ -% 1.5 MetHb ____0.6__ -% sO2 ___96.2__ -% FIO2 __100.0__ -% PRVC 28 - PEEP ___10.0__ -cmH2O Vt __410.0__ -L Drawn By AF - Date/Time Notified____ 04:42:00 -_ Spontaneous_RR 28 -b/min Oxygen Device 1 VENTILATOR - Notified By AF - K+ ____3.2__ -mmol/L tO2 ___13.3__ -Vol% OrderingPhysicianInitials bak - Lj test N/A -
--- NOTE | 2016-11-09 04:56 | NUR ---
O2 sat variations when pt on right side his sats =88-91%, when on left side pt's sats=86% and remained there so pt turned onto his back where his sats= 91--94%, hob up, resp rate=28/ on vent, oral care done, sx mod to large mount of thin white/creamy sputum per ett, ls= course rhonchi t/o, bis=40's, up to 60's with suctioning, fentanyl gtt at 75mcg/hr, ativan gtt at 3mg/hr, train of four= 1/4 with nimbex gtt at 1.5mcg/kg/min and 4/4 with nimbex at 1mcg/kg/min, nimbex continued at 1.5mcg/kg/min, hemodynamic numbers per vigileo over all good, svr/svri little low, norepi gtt at 0.05mcg/kg/min, bp per right radial a line= 100-120's/50's, map >65, pt's bp on lower end of previous charting when turned on his sides--then improves over time, cvp=16-18, good uop per f/c, simon urine, D5 1/4 ivf per orders, next lactic acid wanted in am per report, tele- sr, hr 80's, temp=37.0-37.2ax tf per ogt tolerated well with minimal residuals, ogt placement =wnl, hob up, rare bt noted, abd round/soft, no bm, plan:continue to support resp status, am abg's/cxr/labs pending, see ccu flow sheet, Addendum: 11/09/16 at 0510 by ABA NICHOLE RN 100% fio2 per vent, peep of 10,
[2016-11-09 05:05] LABS: Magnesium 1.7 mg/dL (1.6-2.6); Phosphorus 2.8 mg/dL (2.5-4.9)
[2016-11-09] MEDS: Piperacillin-Tazo 3.375 Gm Inj 3.375 GM in Dextrose 5% Minibag Plus 50 ML IV SCH ×2 (05:54→17:49)
[2016-11-09] MEDS ORDERED: KCl 40 mEq/100 mL Premix (K 3 - 3.7 & Creat < 2) IV ONE ×2 (06:20→23:15)
[2016-11-09] MEDS: Albumin 25% 25 GM in IV Premix 1 EACH IV SCH ×2 (07:27→20:42)
--- NOTE | 2016-11-09 08:56 | PROG NOTE ---
[address] [address] PROGRESS NOTE PATIENT: GIORGIO OBRIEN : 1955 MR#: [id number] ADMIT: 11/05/2016 JOB ID: [id number] DATE: 11/09/2016 REASON FOR FOLLOW UP: Massive aspiration pneumonia with ventilatory dependent respiratory failure, septic shock, and probable DIC. INTERVAL HISTORY: Overnight, the patient has changed very little. He remains absolutely critically ill, and is still paralyzed and requiring low doses of vasopressor agents to maintain oxygen and ventilation. He remains on 100% FiO2 with marginal blood gases. This case was discussed in detail with the ICU nurses and respiratory therapist at the bedside. The patient is obviously intubated and paralyzed and not able to give any additional history. PHYSICAL EXAMINATION: Reveals an intubated, sedated, and paralyzed gentleman with multiple support devices. He has been afebrile through the night though right now is spiking to 38.8, which is his highest fever in about 24 hours. His pulse is in the 80s. His blood pressure is being maintained by varying doses of norepinephrine which are currently fairly low and is about 120/60. He is saturating 90 to 95% on 100% FiO2 and 10 of PEEP. His urine output remains more than adequate. Examination of the eyes reveals arcus senilis, but no conjunctivitis or scleral icterus. Oral endotracheal tube. Orogastric tube in good position. Central line in good position without evidence of infection. Lungs with extremely coarse breath sounds bilaterally. Coarse rhonchi and rales almost diffusely through both lung villanueva and more respiratory secretions. Cardiac tones regular rate and rhythm. The abdomen is slightly distended, but without focal masses or ascites. Judd catheter is present. No new skin rash. The patient has diffuse and worsening peripheral edema. Surprisingly his feet and hands are extremely well perfused. They are warm without any apparent ischemia whatsoever. DIAGNOSTIC STUDIES: Labs include white count 9900 that is 18% bands, 2% metamyelocytes. Platelets continue low at 32,000. Hematocrit stable at about 30. Creatinine 1.42. Lactate remains elevated at 3.4 this morning. LFTs are normal. Albumin 2.5. Pro calcitonin is showing a positive trend. It was 200 on the , 75 yesterday and 50 today so that single parameter seems to be going the right way. Hepatitis C genotype and quantitation are pending. HIV is negative. Urine pneumococcal and Legionella antigens are negative. Respiratory viral PCR panel negative. MRSA screen of the nares negative. Two sputum cultures are growing normal shola and multiple negative blood cultures as well. Imaging was reviewed with the team. It shows very profound bilateral infiltrates, which may be very slightly better bilaterally than yesterday's, but this is a fairly subjective improvement. IMPRESSION: This is an extremely critically ill gentleman with bilateral infiltrates, which are likely multifactorial, but at least partially due to aspiration infectious pneumonitis as well as probable chemical pneumonitis and perhaps some acute respiratory distress syndrome secondary to narcotics and/or amphetamines. He is very little changed overnight despite extremely aggressive an appropriate intensive care unit support and broad-spectrum antibiotics. The only positive number really is the drop in procalcitonin and the fact he is only requiring fairly small doses of vasopressor agents to maintain his blood pressure. Also on the positive side is his continued urine output and ability to maintain a somewhat physiologic creatinine. There are many negatives however including his lack of significant clinical improvement overnight as well as his ongoing lactic acidosis and requirement for 100% FiO2, 10 of PEEP. Paralysis to assist with ventilation and vasopressor agents albeit a low dose. RECOMMENDATIONS: 1. Will continue with Zosyn and levofloxacin. 2. Continue to closely follow procalcitonin as well as CBC. 3. A sputum Gram stain and culture should be checked about every other day just so he can monitor what is going on in terms of the patient's shola. Should he spike a fever or developed ventilator associated pneumonia, will have at least a heads up in terms of how his shola is changing and the appropriate antibiotics.
[2016-11-09] MEDS ORDERED: Dextrose 5% 1,000 ML IV SCH (09:05)
--- NOTE | 2016-11-09 09:28 | PCM.PNMED ---
Subjective Date of Service Nov 09, 2016 Subjective 61-year-old male with history of substance abuse presents with acute respiratory failure with hypoxia, toxic encephalopathy and sepsis. Sedated, paralyzed and unable to give history. Blood pressure has stabilized, rhabdomyolysis renal failure is improving, but ARDS has worsened. Exam Vital Signs Vital Sign - Last Date Time Temp Pulse Resp B/P Pulse Ox O2 Delivery O2 Flow Rate FiO2 11/09/16 09:10 91 92/49 92 100 11/09/16 08:30 38.4 28 Mechanical Ventilator Intake and Output 11/08/16 11/08/16 11/09/16 Cumulative From/Thru 14:59 22:59 06:59 11/05/16 16:16 - 11/09/16 05:50 Intake Total 3068 ml 906 ml 1734 ml 54118 ml Output Total 1460 ml 800 ml 1225 ml 61581 ml Balance 1608 ml 106 ml 509 ml 16405 ml Intake Oral 0 ml 0 ml IV Total 3068 ml 906 ml 1570 ml 90112 ml Tube Feeding 84 ml 84 ml Tube Irrigant 80 ml 80 ml Output Urine Total 1450 ml 750 ml 1100 ml 15671 ml Gastric Drainage Total 10 ml 50 ml 125 ml 270 ml # Bowel Movements 0 0 0 Exam General: Middle-age man, sedated on ventilator HEENT: sclerae anicteric, face symmetric, atraumatic Neck: Difficult to assess JVD Chest: Diffuse coarse rhonchi bilaterally Cardiac: S1S2, regular, no murmur Abdomen: BS reduced but present, no rigidity Extremities: Forearm edema, trace pedal edema, no acute swelling or trauma Neuro: Obtunded, paralyzed IVs and Medications Medications Reviewed: Medications were reviewed in detail Lab and Diagnostics Result Diagram: 11/09/16 0416 11/09/16 0416 Assessment & Plan 61-year-old man with opioid abuse disorder presents with acute respiratory failure with hypoxia, ARDS versus aspiration pneumonia, and encephalopathy related to hypoxia and probable opioid toxicity. # Sepsis, acute. SIRS criteria on admission: Tachycardia heart rate 113, tachypnea RR 30, temperature 39.8, neutropenia WBC 1.9 with left shift 64% immature forms. Lactic acid 3.5, persistent in range of 2.9-4.6 despite aggressive fluid resuscitation. Presumed due to aspiration pneumonia and septic shock. - Hemodynamic support to maintain MAP and urine output - Antibiotics: Zosyn, Levaquin # Cardiac: Hemodynamics & Rhythm - on admission sinus tachycardia rhythm, troponin T normal. No significant LV dysfunction. Has received copious fluid resuscitation, initially low CVP now replete. Currently requiring low-dose norepinephrine. - Telemetry monitoring - Fluids and pressors to maintain MAP greater than 65 mmHg # Respiratory status - ARDS versus aspiration pneumonia. No evidence for cardiogenic pulmonary edema. Oxygenation status has steadily worsened on FiO2 1.0 with PEEP 10. - Ventilator bundle; tidal volume for ARDS: Nimbex, fentanyl, midazolam - ICU/Pulmonary consult following - PEEP ladder today now that BP has improced - Repeat chest x-ray in a.m. # Lines, I/O's, fluids and electrolytes - Hyponatremia sodium 129 on admission , developed hypernatremia sodium 152 on 11/08 due to free water depletion. Hyperkalemia range 4.8-5.9, now normal. Hypocalcemia, but ionized calcium has been essentially normal. - Judd catheter monitor urine output - Change IV fluids to hypotonic D5 - Increased free water flushes with tube feeds - Daily BMP # Renal - Acute renal failure with creatinine 7.88 on admission, now declined to ~1.4. Rhabdomyolysis CPK 6072 is rapidly declining, now 887. Metabolic acidosis, anion gap 25 on admission. Persistent lactic acid elevation due to tissue hypoperfusion on high-dose norepinephrine. Phosphorus 3.8 on admission, peaked at 7.3, now normal. Urine output has been robust, possible post ATN diuresis. - Daily BMP # Hematological - Marked neutropenia with leukemoid reaction likely related to acute sepsis. Neutropenia is now resolved. Platelet drop began too early for HIT. Anti-PF4 antibody is pending. Mild abnormalities of coagulation, no significant drop in fibrinogen. Possible low-grade DIC but no clinical evidence of thrombosis or worsening organ dysfunction other than ARDS. No indication for platelet or coagulation factor replacement at this time. - Follow CBC with differential - Holding off heparin until plts >50K - Repeat coags # GI, diabetes, and nutritional status - abdomen seems nonacute. Mild transaminase elevation but no hepatic failure. Glucose is normal. Patient nothing by mouth proximally 5 days, since 1-2 days prior to admission. - Nutrition consult, - increase enteral feeds by OG-tube initiated on 11/08 # Neurological - Initially toxic encephalopathy due to opioids, metabolic encephalopathy due to hypoxia. Now ventilator sedation. - Monitor clinical status - Await clinical stabilization before reducing sedation and paralysis # Infectious disease status - clinical severe septic shock due to aspiration pneumonia. MRSA swab negative - Zosyn, levofloxacin for aspiration pneumonia - ID consult following # Pain status - stable on ventilator sedation # Venous thromboembolism prophylaxis: - holding off Subcutaneous heparin due to low plts # GI prophylaxis: - IV famotidine every 12 # Goals of care, expected hospital duration, discharge planning: - Admitted to inpatient status in CCU due to life-threatening critical illness, with expectation of care greater than 48 hours - Full code VTE Mechanical Devices: Intermittant Pneumatic CD Resuscitation Status: CPR: Attempt Resuscitation Time spent 35 min Magno Armendariz MD Nov 09, 2016 09:28
[2016-11-09] MEDS: levoFLOXacin Inj 750 MG in IV Premix 1 EACH IV SCH (09:34)
[2016-11-09] MEDS ORDERED: Furosemide 10 mg/mL 4 mL Inj IVPUSH ONE (10:05)
[2016-11-09] MEDS ORDERED: Chlorothiazide Inj 500 MG in Dextrose 5% 50 ML IV ONE (10:05)
[2016-11-09] MEDS: Dextrose 5% 1,000 ML IV SCH ×2 (10:10→22:37)
--- NOTE | 2016-11-09 10:41 | NUR ---
NUTRITION FOLLOW-UP Assess: 61 YO M admitted to CCU for aspiration pneumonia, sepsis, ARF, and polysubstance abuse. Pt is currently intubated and sedated. Currently on Nimbex. Trophic TF was started overnight. TF to start advancing today. Received verbal per CCU rounds to increase free water flushes to help with hypernatremia. Per RN, bowel tones are minimal, likely related to nimbex. RN is aware of need to watch TF tolerance closely due to pt being on nimbex. Pt has not had a BM since admit. PMHX: Heroin use, chronic back pain, DJD, glucose intolerance, kidney stones. DIET: NPO X 3 days. LABS: Na 150, K 3.4, Cl 116, Bun 28, database admin 1.42, Glu 137, Ca 7.1, Alb 2.5 MEDICATIONS: Reviewed. Albumin, Pressor, Nimbex, Fentanyl. GI: No BM x4 days. SKIN: No issues per WC ANTHROPOMETRICS: Wt 87.6 kg, BMI 27.7 kg/m2, Admit wt: 74.6 kg. ESTIMATED NEEDS: VENT Calories: 1203-0312 kcal/day (20-25 kcal/kg BW) Protein: 130-155 g/day (1.5-1.8 g/kg BW) Fluids: 7724-0797 ml/day (25-30 ml/kg) NUTRITION DIAGNOSIS: 1) Inadequate oral intake related to decreased ability to consume sufficient energy as evidenced by NPO/Vent status. IMPROVING w/ TF INTERVENTION: 1) Recommend continue TF of Nepro @ 10 ml/hr, advance 10 ml q 6 hr to goal rate of 55 ml/hr. At goal TF will provide 2178 kcal, 98 g protein; meeting 100% calorie, 74% of protein needs. Recommend fluid flush of 65ml q 1 hr to provide additional 1536ml free water. TF water+ free flushes provides 2415ml H20. 2) Once tolerance established, consider adding 1 packet of prosource TID to better meed protein needs. MONITOR/EVALUATE: NPO/Vent status, TF tolerance/advance, BM?, labs, POC, GI/nutrition status. Follow per high nutrition risk guidelines.
--- NOTE | 2016-11-09 10:46 | PROG NOTE ---
[address] [address] PROGRESS NOTE PATIENT: GIORGIO OBRIEN : 1955 MR#: [id number] ADMIT: 11/05/2016 JOB ID: [id number] DATE: 11/09/2016 PULMONARY CRITICAL CARE PROGRESS NOTE: The patient is a 61-year-old man admitted with substance overdose, respiratory failure and shock. INTERVAL HISTORY: He remains intubated on 100% FiO2, on low-dose vasopressors. The patient was seen and evaluated with resident physician, Renata Montelongo DO. Please refer to her separate detailed note for additional information. The following is an addendum. REVIEW OF SYSTEMS: Unable to obtain. PHYSICAL EXAMINATION: Vital signs reviewed and notable for T-max of 38.4, FiO2 of 100% and PEEP of 10 cm. General: Intubated, sedated, unresponsive and paralyzed. Chest: Bilateral coarse crackles heard all over the lung villanueva. LABORATORIES: Reviewed. WBC 9.9, platelets 32. Chemistry reviewed and notable for sodium of 152, creatinine of 1.4 down from 8 on admission. Urinalysis shows 3-10 RBC from November 07, random protein in urine somewhat elevated. Cultures, no growth to date. Arterial blood gas from this morning shows pH of 7.30, pCO2 of 51, bicarb of 25 and pO2 of 81. This was on 100%. IMAGING: Shows dense bilateral consolidation, progressing compared to prior. ASSESSMENT AND RECOMMENDATIONS: 1. Acute hypoxic respiratory failure. 2. Adult respiratory distress syndrome. 3. Septic shock. 4. Aspiration pneumonia. 5. Polysubstance overdose. 6. Leukopenia -- improved. 7. Thrombocytopenia. 8. Fever. This 61-year-old man with history of known polysubstance abuse was admitted on November 05 after being found down. Verbal report from ED indicates urine tox was positive for heroin and methamphetamines. Since that time he has been intubated, with the poor oxygenation, initially presenting with acute kidney injury with creatinine of 8, which has now improved. However, he remains on 100% FiO2 and 10 cm of PEEP at this time. I am going to have his PEEP increased slowly as tolerated to a higher level. He is also on cisatracurium for paralysis and when he is off of this, desaturates with minimal movement. With regards to his fever, I wonder about a vasculitic process since he is spiking despite antibiotics, i.e. levofloxacin and Zosyn. Since his MRSA nasal swab was negative, vancomycin was discontinued. I wonder about a vasculitic process or alveolar hemorrhage, so we are going to check an CRUZ, ANCA, antiphospholipid antibodies, etc. If possible, I would like to consider bronchoscopy later today as well, assuming his oxygenation improves with increasing the PEEP today. Spoke with Nephrology, and they are planning on giving him some IV diuretics and I agree with this. I think it would help his oxygenation even though his blood pressure may drop with it. We will adjust his norepinephrine accordingly. With regards to thrombocytopenia I am not sure what the cause of this is but it could be drug-induced/sepsis-induced thrombocytopenia. HIT antibody is pending, and he is not on any deep venous thrombosis prophylaxis because of it. His leukopenia could also be drug induced and seems to be improving. There is some reported history of hepatitis C but labs are still pending at this time. He is a FULL CODE at this time. CRITICAL CARE TIME: 60 minutes.
[2016-11-09] MEDS ORDERED: KCl 40 mEq/100 mL (CENTRAL) 40 MEQ in IV Premix 1 EACH IV ONE (12:40)
[2016-11-09] MEDS: Norepineph 8,000 mCg/250 mL NS 8,000 MCG in IV Premix 1 EACH IV SCH ×2 (12:43→23:28)
[2016-11-09] MEDS ORDERED: Lidocaine Topical 2% 30 mL Jelly ONE (13:16)
[2016-11-09] MEDS ORDERED: Lidocaine PF 2% 10 mL Inj ONE (13:16)
--- NOTE | 2016-11-09 13:35 | PCM.PNNEPH ---
Kimmy Giron DO 11/09/16 1335: Subjective Date of Service Nov 09, 2016 Subjective Patient intubated and sedated in the ICU so no ROS could be obtained. Exam Vital Signs Vital Sign - Last Date Time Temp Pulse Resp B/P Pulse Ox O2 Delivery O2 Flow Rate FiO2 11/09/16 12:50 83 105/51 96 100 11/09/16 12:30 37.7 28 Mechanical Ventilator Intake and Output 11/08/16 11/08/16 11/09/16 Cumulative From/Thru 15:00 23:00 07:00 11/05/16 16:16 - 11/09/16 05:50 Intake Total 3068 ml 906 ml 1734 ml 50808 ml Output Total 1460 ml 800 ml 1225 ml 58560 ml Balance 1608 ml 106 ml 509 ml 10913 ml Intake Oral 0 ml 0 ml IV Total 3068 ml 906 ml 1570 ml 76790 ml Tube Feeding 84 ml 84 ml Tube Irrigant 80 ml 80 ml Output Urine Total 1450 ml 750 ml 1100 ml 85689 ml Gastric Drainage Total 10 ml 50 ml 125 ml 270 ml # Bowel Movements 0 0 0 Exam Intubated, sedated and paralyzed in the ICU. Neck: No appreciable JVD; right IJ Chest: Diffuse coarse breath sounds Cardiac: RRR, no murmur appreciated Abdomen: Slow bowel tones, abdomen firm Judd catheter present Extremities: No cyanosis,clubbing; generalized edema in the extremities; right radial arterial line Radial and dorsalis pedis pulses present and equivalent bilaterally IVs and Medications Medications Reviewed: Medications were reviewed in detail Lab and Diagnostics Result Diagram: 11/09/16 0416 11/09/16 1045 Plan Plan: 1. Acute kidney injury, improving. - Likely multifactorial and secondary to sepsis, ATN, and volume depletion. Also some concern for rhabdomyolysis at time of admission. - Patient appears to have been adequately fluid resuscitated. - IV chlorothiazide 500 mg one time. Consider BID dosing if patient tolerates this medication. - Continue to monitor BMP. - Avoid nephrotoxic medications and renally dose medications. 2. Hypernatremia, acute. - Free water deficit calculated to be about 3.7L. - D5W at 70 ml/hr. Minimize other IV fluids as much as possible. - Increase free water flushes via the NG tube. Agree with plan to do 65 cc hourly at this time. - Continue to monitor BMP. 3. Hyperkalemia, ongoing. - Continue to monitor BMP. Replete as needed. 4. Anasarca. - Patient about 14L positive over the course of admission with notable edema on exam today. - One time dose of Lasix 40 mg IV. - Albumin IV to promote retention of fluid in the intravascular compartment. - Will monitor blood pressure and urine output closely. 5 Severe sepsis. 6. ARDS secondary to presumed aspiration pneumonia. 7. Metabolic encephalopathy. 8. Pancytopenia, improving. 9. Polysubstance abuse. 10. Chronic hep c infection. Girma Fay DO 11/09/16 1431: Exam Lab and Diagnostics Result Diagram: 11/09/16 0416 11/09/16 1045 Plan Plan: Pt. seen and examined and discussed w/ Dr. Girno and the ICU team. Pt. has excess fluid and hypernatremia. Despite the BP he continues to make urine. We discussed giving him chlorathiazide and furosemide iv to both mobilize fluid and exert a naturetic effect. Kimmy Giron DO Nov 09, 2016 13:35 Girma Fay DO Nov 09, 2016 14:31
--- NOTE | 2016-11-09 14:30 | DRSVH ---
PROCEDURE: X-RAY CHEST ONE VIEW, PORTABLE ([id number]) INDICATIONS: aspiration pneumonitis, ARDS TECHNIQUE: One view of the chest was acquired. COMPARISON: [facility], CR, XR CHEST 1VW, 11/08/2016, 5:39. [facility], CR, XR CHEST 1VW (PORTABLE), 11/07/2016, 4:57. FINDINGS: Surgical changes and devices: Stable position of ETT, right IJ CVL and the nasogastric tube tip is no t well-seen on current exam. Lungs and pleura: Diffuse, widespread bilateral pulmonary interstitial and air space opacities are p resent not significantly changed from prior examination. Small bibasilar pleural effusions present, right greater left. No pneumothorax. Mediastinum: Mediastinal contours appear normal. Heart size is normal. Bones and chest wall: No suspicious bony lesions. Overlying soft tissues appear unremarkable. IMPRESSION: 1. No significant interval change in pulmonary edema and/or diffuse bilateral pneumonia. Developing ARDS cannot be excluded. 2. Small bibasilar pleural effusions redemonstrated, right greater than left. Dictated by: Joselo Horvath [facility] Interpreted: Olivia Montenegro MD on 11/09/2016 at 8:38 Approved by: Olivia Montenegro MD, PhD on 11/09/2016 at 14:28
--- NOTE | 2016-11-09 14:48 | PCM.PNMED ---
Subjective Date of Service Nov 09, 2016 Subjective Herber Brito is a 61 year old man with past medical history significant for hypertension, diabetes mellitus, pneumonia and heroin abuse who presented to the [facility] ED via EMS due to loss of consciousness due to polysubstance abuse. Currently under treatment for amphetamine toxidrome, aspiration pneumonia complicated by ARDS, shock and bone marrow suppression. Vent day #5 Overnight: The patient desaturated when he was turned on his left side and was slow to regain his O2 saturation. Today: The patient continues to be sedated, paralyzed, and intubated. ROS is not obtainable. Exam Vital Signs Vital Sign - Last Date Time Temp Pulse Resp B/P Pulse Ox O2 Delivery O2 Flow Rate FiO2 11/09/16 12:50 83 105/51 96 100 11/09/16 12:30 37.7 28 Mechanical Ventilator Intake and Output 11/08/16 11/08/16 11/09/16 Cumulative From/Thru 15:00 23:00 07:00 11/05/16 16:16 - 11/09/16 05:50 Intake Total 3068 ml 906 ml 1734 ml 26125 ml Output Total 1460 ml 800 ml 1225 ml 52286 ml Balance 1608 ml 106 ml 509 ml 75847 ml Intake Oral 0 ml 0 ml IV Total 3068 ml 906 ml 1570 ml 50277 ml Tube Feeding 84 ml 84 ml Tube Irrigant 80 ml 80 ml Output Urine Total 1450 ml 750 ml 1100 ml 71363 ml Gastric Drainage Total 10 ml 50 ml 125 ml 270 ml # Bowel Movements 0 0 0 Exam General: sedated, paralyzed, on mechanical ventilation. HEENT: Normocephalic, atraumatic. External ears without defect. Pupils equal, round, and reactive to light and accommodation. Anicteric sclerae, moist conjunctivae, and no lid lag. Oropharynx free of erythema and cobble stoning with dry mucosa. ET tube in place, OG tube in place. Neck: Supple with full range of motion. No jugular venous distension. No lymphadenopathy or thyromegaly. Right IJ in place without. Cardiovascular: Regular rate and rhythm with no murmurs, rubs, or gallops appreciated Pulmonary: Diffuse coarse rhonchi bilaterally. Abdomen: Bowel tones present. Soft, nontender, mildly distended. No hepatosplenomegaly or masses appreciated. Extremities: No clubbing, cyanosis, or lymphadenopathy appreciated. Bilateral lower extremity and upper extremity edema. Skin: Normal temperature, turgor, and texture; no rash, ulcers, or subcutaneous nodules appreciated. : Judd in place with clear yellow urine draining Neurological: Cranial nerves grossly intact. Normal muscle strength, tone, and bulk. No known gait impairment. Psychiatric: Sedated, paralyzed. IVs and Medications Medications Reviewed: Medications were reviewed in detail Lab and Diagnostics Result Diagram: 11/09/16 0416 11/09/16 1045 Microbiology Negative to date X-Rays, CTs and MRIs X-RAY CHEST ONE VIEW IMPRESSION: 1. No significant change in pulmonary edema and/or diffuse bilateral pneumonia. 2. Small pleural effusions, right greater than left. Dictated by: Joselo Horvath RRA Interpreted: Genesis Topete MD on 11/08/2016 at 8:07 Assessment & Plan Herber Brito is a 61 year old man with past medical history significant for hypertension, diabetes mellitus, pneumonia and heroin abuse who presented to the [facility] ED via EMS due to loss of consciousness due to polysubstance abuse. Currently under treatment for amphetamine toxidrome, aspiration pneumonia complicated by ARDS, shock and bone marrow suppression. Vent day #5 Acute hypoxemic respiratory failure secondary to aspiration pneumonia complicated by ARDS -Mechanical ventilation with paralysis with Nimbex, sedation with Versed and Fentanyl -Low tidal volume protocol per ARDS-NET with high PEEP, increase PEEP from 10 stepwise to 20 -Repeat ABG in AM -Zosyn and Levaquin per Dr. Salazar, antibiotic day 5 -Bronchoscopy today -CRUZ with reflex, ANCA, antiphospholipid antibody to rule out vasculitis Encephalopathy secondary to acute drug intoxication secondary to opioids and amphetamines -Patient's hyperthermia, tachycardia, rhabdomyolysis, agitation all more likely due to toxidrome than sepsis -Continue paralytic and sedation with Versed Shock, multifactorial secondary to sepsis and hypovolemia -With T 39.8, RR 30, WBC 1.9, hyperlactetemia on admission -Blood, sputum and urine cultures obtained, no growth to date -Antibiotics as above -Continue NE for pressure support of MAP>65 Pancytopenia, improved, with platelets as the main cell line still affected -Likely secondary to drug ingestion versus sepsis -Continue to monitor. Will hold off on prophylactic heparin. High anion gap metabolic acidosis likely secondary to renal failure and hyperlactetemia, resolved -Continue to trend lactate and ABGs daily. Acute renal failure likely secondary to rhabdomyolysis and hypovolemia, resolved -Repeat BMP -Nephrology consulted by primary team. Rhabdomyolysis, resolved. Hypevolemic hypernatremia -About a 2 L TBW deficit, will give D5W at 70 cc/hr, with free water flushes as patient is able to tolerate via OGT. Prophylaxis: GI: Famotidine DVT: SCDs VTE Mechanical Devices: Intermittant Pneumatic CD Resuscitation Status: CPR: Attempt Resuscitation Attending Statement I have seen and examined this patient with the resident physician. Vital signs , labs, imaging have been reviewed. I agree with the assessment and plan above. Please refer to my separately dictated progress note for any modifications to above. Ange Deras M.D. Pulmonary and Critical Care medicine Pager [phone] Renata Montelongo DO Nov 09, 2016 14:13 Ange Deras MD Nov 09, 2016 15:50
--- NOTE | 2016-11-09 17:17 | NUR ---
P: Respiratory Distress I: Pt's sats this am 89%. Peep slowly increased to peep 16 and sats 94%. Dr. Deras did a bronch at 1340 and samples sent to lab. here and ordered pt to received Lasix 40 mg IV and 500mg Chlorathiazide IV . Dr. Fay called at 1500 with UOP 3 liters at that time and order received. Judd output total 3800. K rider done and recheck 3.5 and another k rider infused next check 1999. Nimbex 1.5mcqs/kg/min and pt did not tolerate Nimbex at 1mcq/kg/min. Fentanyl increased to 100mcqs and ativan increased to 4mg/hr as BIS 38-55 with episodes of 80-90's with activity. Pt diaphoretic at times. T max38.4 axillary and Tylenol x2 doses given. Norepinephrine gtt at 0.1mcq/kg/min to keep MAP >65 with diuresis. CVP 13 and vigeleo numbers good. Rt radial art line patent without difficulty. RIJ TLC patent. Sputum sample sent to lab. Levaquin dose adjusted. CLRT on and heels up off the bed because pt not really tolerating actual turns. SCD's on. Train of four 1-2:4. NSR. Pt's son called and was updated by Dr. Armendariz on pt's condition and plan of care. Ex here this evening and there is no DPOA paperwork. Dr. viveros and a social service order put in to decide who is the legal decision maker. E: Guarded. S: Pt on nimbex so no restraints needed. Frequent rounding.
--- NOTE | 2016-11-09 20:35 | ENDO ---
[address] [address] ENDOSCOPY PROCEDURE PATIENT: GIORGIO OBRIEN : 1955 MR#: [id number] ADMIT: 11/05/2016 JOB ID: [id number] PROCEDURE: Bronchoscopy. INDICATIONS: Acute respiratory failure, bilateral pneumonia. Informed consent was obtained from the patient's legal next of kin. After risks and benefits of the procedure were discussed, the patient was intubated during the procedure, on 100% oxygen and 14 cm of PEEP with saturations in the high 90s. He was already sedated with IV infusions including fentanyl and paralyzed with cisatracurium. DESCRIPTION OF PROCEDURE: Lidocaine was passed through the endotracheal tube. Scope was then passed through the tube. Trachea and leyda were visualized and normal in appearance. Airway inspection on the right and left side was performed. There were no abnormalities in the airway. There were some thick yellow secretions that did not cause any occlusion. We proceeded to do a bronchoalveolar lavage in the right middle lobe and subsequently in the lingula. Fluid returned was a pale bolaños without any evidence of valvular hemorrhage. The patient tolerated the procedure well. Samples: Bronchoalveolar lavage in the right middle lobe and lingula, a total of about 70-80 cc was pooled and sent for bacterial, fungal, viral cultures, as well as cytology and cell count. COMPLICATIONS: None. MEDICATIONS: Patient was on IV infusions per ICU protocol. In addition, topical lidocaine was administered. FINDINGS: Some abnormal secretions in the airway, otherwise normal exam. No evidence of alveolar hemorrhage. MTDD
[2016-11-09] MEDS: Famotidine Inj 20 MG in IV Premix 1 EACH IV SCH (20:42)
[2016-11-10] VITALS (13 sets, daily range): BP systolic 90–116; BP diastolic 38–51; PULSE 86–94; RESP 28–30; O2SAT 92–96
[2016-11-10] MEDS ORDERED: Mag Sulf 4 Gm/100 mL IV Premix (Mag < 1.6 & Creat < 2) IV ONE (00:20)
--- NOTE | 2016-11-10 04:37 | ABG ---
DateTimeAnalyzed 04:30:16 -_ pH ____7.227 - 7.350 7.450 pCO2 ___61.8__ -mmHg 35.0 45.0 pO2 ___96.6__ -mmHg 69.0 116 HCO3- ___25.7__ -mmol/L 22.0 26.0 ABE ___-1.8__ -mmol/L tHb ___10.0__ -g/dL O2Hb ___95.7__ -% COHb ____0.8__ -% 1.5 MetHb ____0.7__ -% sO2 ___97.2__ -% FIO2 __100.0__ -% PEEP ___18.0__ -cmH2O Set_RR 28 -b/min Vt __410.0__ -L Drawn By MK - Date/Time Notified____ 04:37:00 -_ Spontaneous_RR 28 -b/min Oxygen Device 1 VENTILATOR - Notified By MK - K+ ____3.5__ -mmol/L tO2 ___13.6__ -Vol% Lj test N/A -
[2016-11-10] MEDS: Piperacillin-Tazo 3.375 Gm Inj 3.375 GM in Dextrose 5% Minibag Plus 50 ML IV SCH ×2 (05:02→18:13)
[2016-11-10] MEDS: Chlorhexidine 0.12% 15 mL Oral Solution MT SCH ×5 (05:02→21:46)
[2016-11-10 05:11] LABS: Mean Corpuscular Hemoglobin 30.4 pg (27.0-35.0); Mean Corpuscular Volume 95.4 fL (81-100); Platelet Count 41 bil/L (150-400)
[2016-11-10 05:21] LABS: BASOPHILS % (AUTO) 1 % (0-3); EOSINOPHILS % (AUTO) 0 % (0-5); MONOCYTES % (AUTO) 1 % (4-12); NEUTROPHILS % (AUTO) 62 % (40-74)
[2016-11-10] MEDS: Cisatracurium Inj 200,000 MCG in 0.9% Sodium Chloride-Pha MIX 100 ML IV SCH ×2 (05:28→17:18)
[2016-11-10 05:40] LABS: Magnesium 2.2 mg/dL (1.6-2.6); Phosphorus 3.7 mg/dL (2.5-4.9)
--- NOTE | 2016-11-10 06:05 | NUR ---
Respiratory/Lab/Hypotension/nutrition Pt desats to 84% when manually turned side to side, fairly tolerates CLRt rotation maintaining sp02 93-95%, am abg resulted with pH 7.23, pc02 62, p02 96, hc03 25, Dr. Lind notified with new vent changes, peep down to 17+ from 18+, RR up from 28 to 30. last nights lab K+ 3.2, mag level 1.4, replaced with kcl 40 meq and mag 4gm IV, repeat K+ 4.0 and Mag 2.2 this am. BP remain labile, titrated up levo gtt 0.1 to 0.133 to keep map>60, on albumin and diuril IV, june drained with 1500 ml uo. Pt has high TF residuals, with max of 520ml/280 ml/355 ml @ 2000/2400/0400 times. RASS -4, on fentanyl and ativan gtt, BIS 40-50's, TOF 2-3/4 on nimbex gtt.
[2016-11-10] MEDS ORDERED: Dextrose 5% 250 ML IV PRN (08:20)
--- NOTE | 2016-11-10 08:24 | PCM.PNMED ---
Subjective Date of Service Nov 10, 2016 Subjective Patient is intubated and sedated. ROS and subjective are not obtainable. Exam Vital Signs Vital Sign - Last Date Time Temp Pulse Resp B/P Pulse Ox O2 Delivery O2 Flow Rate FiO2 11/10/16 04:56 86 104/41 94 100 11/10/16 04:15 38.0 28 Mechanical Ventilator Intake and Output 11/09/16 11/09/16 11/10/16 Cumulative From/Thru 15:00 23:00 07:00 11/05/16 16:16 - 11/10/16 05:50 Intake Total 2557 ml 3000 ml 12003 ml Output Total 3800 ml 2020 ml 67662 ml Balance -1243 ml 980 ml 81715 ml Intake Oral 0 ml IV Total 1938 ml 1937 ml 19177 ml Tube Feeding 188 ml 347 ml 619 ml Tube Irrigant 431 ml 716 ml 1227 ml Output Urine Total 3800 ml 1500 ml 76168 ml Gastric Drainage Total 520 ml 790 ml # Bowel Movements 0 Exam Sedated, in no distress. Patient is intubated. He has an OG tube in place. Normal skull Anicteric sclera. Lungs are clear with normal rate and effort Heart is regular without murmur gallop or rub Abdomen soft nontender, flat Extremities are free of edema. Skin is free of rash or lesions. IVs and Medications Medications Reviewed: Medications were reviewed in detail Lab and Diagnostics Result Diagram: 11/10/16 0505 11/10/16 0505 Microbiology Negative to date X-Rays, CTs and MRIs X-RAY CHEST ONE VIEW IMPRESSION: 1. No significant change in pulmonary edema and/or diffuse bilateral pneumonia. 2. Small pleural effusions, right greater than left. Dictated by: Joselo Horvath RRA Interpreted: Genesis Topete MD on 11/08/2016 at 8:07 Assessment & Plan Herber Brito is a 61 year old man with past medical history significant for hypertension, diabetes mellitus, pneumonia and heroin abuse who presented to the [facility] ED via EMS due to loss of consciousness due to polysubstance abuse. Currently under treatment for amphetamine toxidrome, aspiration pneumonia complicated by ARDS, shock and bone marrow suppression. Vent day #5 #. Acute hypoxemic respiratory failure secondary to aspiration pneumonia complicated by ARDS, POA and active. -Mechanical ventilation with paralysis with Nimbex, sedation with Versed and Fentanyl -Low tidal volume protocol per ARDS-NET with high PEEP, increase PEEP from 10 stepwise to 20 -Repeat ABG in AM -Zosyn and Levaquin per Dr. Salazar, antibiotic day 5 -Bronchoscopy today -CRUZ with reflex, ANCA, antiphospholipid antibody to rule out vasculitis The patient remains hypoxic despite being on FiO2 of 0.9-1.0 and PEEP of 17-18. Continue antibiotics and optimize ventilator settings. #. Toxic Encephalopathy secondary to acute drug intoxication secondary to opioids and amphetamines, POA and active. -Patient's hyperthermia, tachycardia, rhabdomyolysis, agitation all more likely due to toxidrome than sepsis -Continue paralytic and sedation with Versed, continue sedation without medication changes at this time. #. Septic Shock, multifactorial secondary to sepsis and hypovolemia. POA and active. -With T 39.8, RR 30, WBC 1.9, hyperlactetemia on admission -Blood, sputum and urine cultures obtained, no growth to date -Antibiotics as above -Continue NE for pressure support of MAP>65 The patient has a map of 56 this morning. We will uptitrate the norepinephrine to 0.15. #. Hypernatremia, active. We will continue D5W at current rate and follow closely. We will have to hold his tube feeds and flushes today because of high retention and concern for aspiration. #. Pancytopenia, improved, with platelets as the main cell line still affected -Likely secondary to drug ingestion versus sepsis -Continue to monitor. Will hold off on prophylactic heparin. #. High anion gap metabolic acidosis likely secondary to renal failure and hyperlactetemia, resolved -Continue to trend lactate and ABGs daily. #. Acute renal failure likely secondary to rhabdomyolysis and hypovolemia, resolved -Repeat BMP -Nephrology consulted by primary team. #. Rhabdomyolysis, resolved. Prophylaxis: GI: Famotidine DVT: SCDs The patient has an extremely guarded prognosis. VTE Mechanical Devices: Intermittant Pneumatic CD Resuscitation Status: CPR: Attempt Resuscitation Lj Rose MD Nov 10, 2016 08:24
[2016-11-10] MEDS: levoFLOXacin Inj 750 MG in IV Premix 1 EACH IV SCH (08:42)
--- NOTE | 2016-11-10 08:42 | PROG NOTE ---
[address] [address] PROGRESS NOTE PATIENT: GIORGIO OBRIEN : 1955 MR#: [id number] ADMIT: 11/05/2016 JOB ID: [id number] DATE: 11/10/2016 INFECTIOUS DISEASE FOLLOW UP NOTE: REASON FOR FOLLOWUP: Septic shock, ventilator dependent respiratory failure, massive aspiration pneumonia. INTERVAL HISTORY: Overnight, the patient has remained super critically ill in the ICU. His vasopressor requirements have increased and he remains paralyzed, intubated and sedated on the ventilator. Oxygenation continues to be borderline despite very aggressive support. Yesterday he underwent bronchoscopy which has yielded some helpful data. This case discussed in detail with the ICU nurse as well as the entire ICU team. No history available from this intubated, sedated, paralyzed patient. PHYSICAL EXAMINATION: Reveals a gentleman whose T-max the last 24 hours has been 38 degrees which unfortunately was just a few hours ago. Overall, his temperature curve has been one of improvement as he started off with temperatures approaching 40 degrees, and has gradually declined during his 5-1/2 days here in the hospital. His pulse is in the 80s, blood pressure 104/41, but he is on much higher doses of vasopressor agent than yesterday with his pressor requirements almost quadrupled since yesterday morning. He is currently on 90% FiO2 which is down a bit from yesterday but he is on 17 of PEEP which is up significantly from yesterday's 10. He is still paralyzed. Head without notable abnormalities. Eyes without conjunctivitis. Pinpoint pupils bilaterally with arcus senilis. Nose normal. Oral endotracheal tube, orogastric tube in place. On the right side, we have a right IJ line as well as two peripheral right arm IVs and a right radial A line, all of which appear uninfected. His neck is without notable abnormalities. Lungs: Coarse breath sounds bilaterally, little changed from yesterday. Cardiac tones are distant because of noise of the ventilator but regular rate and rhythm at this point. Abdomen moderately distended. We cannot appreciate tenderness, of course, in a patient who is paralyzed and sedated. No obvious hepatosplenomegaly or ascites. The scrotum is swollen about 50% greater than normal. Penis appears normal. Judd catheter in the proper place. His extremities are surprisingly well perfused though they are becoming gradually more edematous. There is excellent capillary refill and all extremities are warm despite his increased vasopressor dose. His left knee appears to have an effusion but it is neither warm nor erythematous. LABORATORIES: Include white count 10,000 today. Little change from yesterday, but are 22% bands, which continues to trend present since admission. His creatinine at 1.58, which is slowly worsening. Note that it was almost 8 when he came in. It got better all the way down to 1.3 and now is approaching 1.6, so going the wrong direction. Liver function tests normal. Albumin 2.8. Today's procalcitonin is pending. It has been going down from 200 on admission to 75 to 50 yesterday and we eagerly await today's result. Urinalysis was negative in terms of pyuria. Hep C quantitation is pending. Micro includes yesterday's bronchoscopy is growing a light growth of an unidentified organism which is not beta hemolytic; therefore, unlikely to be Staph aureus nor a beta hemolytic strep. This will be identified in the next day or so. The PCR panel done on the bronch wash was negative and we await numerous other cultures and stains. As of yet we have no positive significant cultures from any source including multiple blood, sputum and urine cultures. Imaging includes a chest x-ray done today which shows what appears to be some clearing in the left upper lung zone though he still has extraordinary bilateral infiltrates. IMPRESSION: This unfortunate gentleman remains critically ill. He is requiring extraordinary levels of ventilator support as well as paralysis and aggressive use of vasopressor agents to maintain oxygenation and perfusion. The obvious leading candidate for the precipitating cause of all this is a massive aspiration pneumonia which occurred following drug overdose. His continued fevers as well as profoundly left-shifted white count are worrisome but his fever curve is gradually improving as is his procalcitonin which suggests that we are appropriately treating this life-threatening infection and aspiration pneumonia. RECOMMENDATIONS: 1. Will continue with levo and Zosyn. 2. We await the many cultures obtained at bronchoscopy including especially the cultures from the bronch. 3. We await today's procalcitonin, and if this continues to show a downward trend, I think this will reinforce the idea that we are appropriately treating potential infections. 4. As we get further into this complex hospital stay, the patient will become at increased risk for various nosocomial infections including pulmonary infections with highly resistant organisms or fungemia, but at this point, I think our current antibiotics are adequate.
[2016-11-10 09:28] LABS: Lipase 30 U/L (13-60)
[2016-11-10] MEDS: Acetaminophen IV 1,000 MG in IV Premix 1 EACH IV PRN ×2 (09:41→21:44)
--- NOTE | 2016-11-10 09:42 | PCM.CONPAL ---
Date of Service Nov 10, 2016 Date of Hospital Admission: Nov 05, 2016 at 17:27 Date of Palliative Consult: Nov 10, 2016 Requesting Provider: Lj Rose MD Reason Palliative Care Consult: Goals of Care Discussion Reason for Consultation Consult requested by Dr. Lj Rose to discuss goals of care with patient's family for patient with life-threatening critical illness. Hospital Unit @time of consult: Critical Care Additional Information room 2019 Palliative Care Recommendation Summary of palliative recommendations: Patient is a 61-year-old gentleman with hypertension, diabetes mellitus, pneumonia and heroin abuse who presented to the [facility] ED via EMS due to loss of consciousness secondary to polysubstance abuse. He was subsequently intubated and currently sedated on the ventilator. Clinical picture consistent with ARDS and aspiration pneumonia. -Symptom management (Pain/other): Per primary medical and critical care teams. -DPOA/Advanced Directives/POLST: No designated DPOA. State designated decision maker by default would be patient's brother, Jann Michel, as patient's children are estranged and not actively involved with patient. 1. Patient is currently FULL CODE -Family/emotional support: -Jann Michel (brother): [phone] -Farzana Galeana (ex-). 7 years, were together for 29 years total. She has maintained a relationship with patient following divorce - -Work: -Lucrecia Strickland (patient's step-daughter, Farzana's biological daughter). No relation with patient and has expressed no interest to build relations per Farzana. -Balaji (son), recently released from retirement. Estranged from father. -Ramy (son), incarcerated. Estranged from father. Recognized as patient's biological son but no certificate exists as proof. -Barb (daughter) is currently in [facility] retirement for drug-related activity , estranged from father. -Patient's two other children are . , parents and sister also . -Aunt Lisa (mother's sister) is disabled and drinks heavily per Farzana. 11/10: Dr. Vazquez contacted Jann (patient's brother and default DPOA) and Farzana (ex-) with updates on the patient's critical condition. A family conference team meeting (FCTM) is scheduled for 11/11 at 11a.m. to discuss the goals of care. CCU RN aware and will let Dr. Deras know. Additional Medical Diagnoses with primary management by Hospitalist team include : Acute hypoxemic respiratory failure secondary to aspiration pneumonia complicated by ARDS Encephalopathy secondary to acute drug intoxication secondary to opioids and amphetamines Shock, multifactorial secondary to sepsis and hypovolemia Pancytopenia, improved, with platelets as the main cell line still affected High anion gap metabolic acidosis likely secondary to renal failure and hyperlactatemia, resolved Acute renal failure likely secondary to rhabdomyolysis and hypovolemia, resolved Rhabdomyolysis, resolved. Hypervolemic hypernatremia Problems: Goals of Care Patient is currently FULL CODE but this will be revisited as discussion with family continues to evolve. Disposition Pending hospital course Resuscitation Status Resuscitation Status: CPR: Attempt Resuscitation POLST Updates/Changes Previous POLST?: No Pt History History of Present Illness Per admit note: Herber Brito is a 61 year old man with past medical history significant for hypertension, diabetes mellitus, pneumonia and heroin abuse who presented to the [facility] ED via EMS due to loss of consciousness. The patient was intubated in the ED and is unable to give history, most of the history is obtained from records and provider accounts. The patient has a history of heroin abuse and and was in an inpatient rehab center and was release on Tuesday. Per report he was left alone today and was subsequently found down in his home, laying on the floor with green vomit on the side of his face. The patient was still maintaining his airway when he was brought to the ED. The patient was tried on CPAP by EMS and appeared to improve. He was given Narcan which only improved his somnolence minimally. Per EMS his axillary temperature was 102. Per the ED physician the patient was able to answer a few minimal questions on arrival but was intubated for airway protection. He denied using drugs today. CXR in the ED revealed diffuse patchy infiltrates. When evaluated in the ED the patient was using significant effort to inspire against the portable ventilator and was tachypnic. Upon arrival to the ICU the patient was placed on a ventilatory with marginal improvement. The patient's blood pressure subsequently decreased as he fought the ventilator. He was paralyzed with Nimbex, sedated, with good improvement of the blood pressure. IJ was placed for monitoring and medication delivery. Palliative Care consulted to assist family in determining goals of care. Patient discussed in detail during critical care rounds with bedside nurse, primary medical team, critical care team and respiratory therapists. Records in EMR also reviewed in detail. Patient is sedated, intubated and not responsive. No family present at time of visit. Dr. Vazquez contacted the patient's brother, Jann Michel, and patient's ex- , Farzana Galeana. The patient does not have a designated DPOA. The state designated decision maker by default would be the patient's Jann since the patient's children are estranged. Dr. Vazquez updated both Jann and Farzana regarding the patient's critical condition. Critical care team does not expect the patient to survive this hospitalization. A meeting was arranged that is scheduled for tomorrow to initiate discussion regarding patient's goals of care. Past Medical History Significant PMH Noted: Chronic back pain History of substance abuse - heroin use 03/25/2016 Kidney stones Back pain r/t DJD with history of lumbar decompression Glucose intolerance Allergy Allergies Reviewed: Yes Medications Current Medications: Current Medications Albumin Human 25 gm/Premix 100 ml @ 1 mls/min Q12 IV Last administered on 20:42; Admin Dose 1 MLS/MIN; Start 11/08/16 at 20:30; Stop 11/09/16 at 22: 09; Status DC Dextrose/Sodium Chloride 1,000 ml @ 70 mls/hr [id number] IV Last administered on 04:17; Admin Dose 70 MLS/HR; Start 11/08/16 at 13:40; Stop 11/09/16 at 09:05; Status DC Levofloxacin/ Dextrose 750 mg/ Premix 150 ml @ 150 mls/hr Q24 IV Last administered on 11/10/16 08:42; Admin Dose 150 MLS/HR; Start 11/09/16 at 09:02 Dextrose/Water 1,000 ml @ 100 mls/hr Q10H IV Last administered on 11/09/16 09: 33; Admin Dose 100 MLS/HR; Start 11/09/16 at 09:05; Stop 11/09/16 at 09:57; Status DC Dextrose/Water 1,000 ml @ 70 mls/hr [id number] IV Last administered on 6/20/17at 22:37; Admin Dose 70 MLS/HR; Start 11/09/16 at 09:57 Dextrose/Water 250 ml @ 0 mls/hr Q0M PRN IV; Start 11/10/16 at 08:20 Acetaminophen/ Premix 100 ml @ 400 mls/hr Q6H PRN IV; Start 11/10/16 at 09:15 ; Stop 11/11/16 at 09:16 Scheduled Aspirin (Aspirin) 81 Mg Tablet 81 MG PO DAILY Lisinopril (Lisinopril) 40 Mg Tablet 40 MG PO DAILY Mirtazapine (Mirtazapine) 15 Mg Tablet 15 MG PO HS Prazosin (Prazosin) 1 Mg Capsule 1 MG PO HS Objective Findings Exam Vital Sign - Last Date Time Temp Pulse Resp B/P Pulse Ox O2 Delivery O2 Flow Rate FiO2 11/10/16 09:20 94 11/10/16 08:05 Ventilator 11/10/16 08:05 39.4 94 30 101/48 90 Intake and Output 11/09/16 11/09/16 11/10/16 Cumulative From/Thru 15:00 23:00 07:00 11/05/16 16:16 - 11/10/16 05:50 Intake Total 2557 ml 3000 ml 26545 ml Output Total 3800 ml 2020 ml 99976 ml Balance -1243 ml 980 ml 55847 ml Intake Oral 0 ml IV Total 1938 ml 1937 ml 78479 ml Tube Feeding 188 ml 347 ml 619 ml Tube Irrigant 431 ml 716 ml 1227 ml Output Urine Total 3800 ml 1500 ml 15193 ml Gastric Drainage Total 520 ml 790 ml # Bowel Movements 0 Objective General: Patient is sedated and intubated on mechanical ventilator HEENT: ETT present Cardiac: Regular without murmur Lungs: Coarse bilaterally Abdomen: Decreased bowel tones Extremities: Warm, Mild lower extremity edema Neurologic: Unable to assess due to being sedated Lab/Diagnostics Lab and Imaging results reviewed in detail in EMR. Time spent Total time 70 minutes; >50% face to face with patient and/or family, providing counselling regarding plans and recommendations, and in care coordination with his/her medical teams. Attending Statement Dr. Vazquez was physically present and available to resident physician in discussing this case, planning family meeting and performing exam. She agrees with documentation in resident Dr. Ibarra's note above. Yogesh Ibarra DO Nov 10, 2016 09:42 Evelyne Vazquez MD Nov 10, 2016 13:34
[2016-11-10] MEDS ORDERED: Dextrose 5% 500 ML IV SCH (10:35)
[2016-11-10] MEDS: Norepineph 8,000 mCg/250 mL NS 8,000 MCG in IV Premix 1 EACH IV SCH ×3 (10:45→21:03)
--- NOTE | 2016-11-10 10:47 | PROG NOTE ---
[address] [address] PROGRESS NOTE PATIENT: GIORGIO OBRIEN : 1955 MR#: [id number] ADMIT: 11/05/2016 JOB ID: [id number] DATE: 11/10/2016 PULMONARY CRITICAL CARE PROGRESS NOTE: The patient is a 61-year-old man admitted with substance overdose, respiratory failure, ARDS and shock. The patient was seen and evaluated with resident physician, Renata Montelongo. Please refer to her separate detailed note for additional information. INTERVAL HISTORY: He underwent uneventful bronchoscopy yesterday but remains on 100% oxygen with 18 cm of PEEP. He is also on moderate dose norepinephrine, paralyzed. REVIEW OF SYSTEMS: Unable to obtain. PHYSICAL EXAMINATION: Vital signs reviewed and notable for T-max of 39.4, FiO2 100%, PEEP of 18 cm. General: Intubated, sedated, paralyzed, unresponsive. Chest: Bilateral coarse crackles. LABORATORIES: Reviewed. Platelets are up very slightly to 41 from 32. Chemistry reviewed and notable for sodium of 152, creatinine 1.58 from 1.42. Procalcitonin of 39.2 from 50. Cultures: Respiratory viral PCR from bronchoscopy is negative. Remaining cultures negative to date. Chest x-ray today looks unchanged with dense bilateral patchy consolidation. Arterial blood gas from this morning shows pH 7.22, pCO2 of 61, pO2 of 96, bicarbonate of 25. ASSESSMENT AND RECOMMENDATIONS: 1. Severe acute respiratory distress syndrome. 2. Acute hypoxic respiratory failure on mechanical ventilation since November 05. 3. Septic shock with persistent fevers. 4. Acute kidney injury. 5. History of polysubstance abuse including methamphetamine, heroin. 6. Thrombocytopenia. 7. Leukopenia-improved. 8. Aspiration pneumonia. RECOMMENDATIONS: This 61-year-old man with history of polysubstance abuse was found down on November 05, intubated. He currently has severe ARDS. Bronchoscopy yesterday did not show any evidence of valvular hemorrhage. He did have some secretions. Cultures were sent and so far are negative. He is currently on Zosyn and levofloxacin as far as antibiotics. I do not have a good explanation for his persistent fevers. CRUZ and ANCA are pending at this time. It would be rather early for yeast or candidal infection. Again bronchoscopy is not consistent with a vasculitic process since there was no evidence of valvular hemorrhage. He received a couple of doses of diuretic yesterday per Nephrology and diuresed very well with that. They are going to repeat that and potentially start him on a Lasix drip which I agree with. With regards to his respiratory status and oxygenation, we increased his PEEP further to 20 cm from 18 and decreased the FiO2 to 90%. I am concerned about his hypercapnia and worsening ventilation. This may be a sign of overall worsening pulmonary condition. Labs are consistent with hepatitis C as well and I am not sure how that plays into this condition at this point. HIT antibody is negative. Thrombocytopenia is stable. DVT prophylaxis is on hold because of thrombocytopenia. He is on appropriate GI prophylaxis. He is a FULL CODE. Family dynamics seemed to be somewhat complex with an ex-, two children, one of whom is in group home. We have asked Palliative Care to help arrange a meeting with the family and legal next of kin and explain to them that he is progressively worsening, developing multiorgan failure and likely severe refractory ARDS which he will not recover from. Addendum: We had a family conference this evening with his ex- Farzana, a cousin and stepdaughter present. Brother Jann was on speaker phone for the conference. Brother Jann indicated that his son Balaji is not mentally well enough to make medical decisions for his father. After explaining the patient's current condition and rapid decline with multiorgan failure, the patient's brother Jann who is the primary decision maker felt that the best next step which would be consistent with the patient's wishes would be to transition him to comfort measures. He was made DNR/DNI and comfort care paperwork was filled out and made available for the nursing staff to initiate once the family had a chance to visit. CRITICAL CARE TIME: 90 minutes. DELILAH
--- NOTE | 2016-11-10 10:48 | ABG ---
DateTimeAnalyzed 10:40:35 -_ pH ____7.215 - 7.350 7.450 pCO2 ___63.0__ -mmHg 35.0 45.0 pO2 ___84.2__ -mmHg 69.0 116 HCO3- ___25.5__ -mmol/L 22.0 26.0 ABE ___-2.2__ -mmol/L tHb ___10.3__ -g/dL O2Hb ___94.5__ -% COHb ____0.7__ -% 1.5 MetHb ____0.7__ -% sO2 ___95.9__ -% FIO2 ___90.0__ -% PRVC 410 - PEEP ___20.0__ -cmH2O Set_RR 28 -b/min Vt __410.0__ -L Drawn By NB - Date/Time Notified____ 10:48:00 -_ Spontaneous_RR 28 -b/min Oxygen Device 1 VENTILATOR - Notified By nb - Notified Whom DR Parimi - K+ ____3.5__ -mmol/L tO2 ___13.8__ -Vol% Lj test N/A -
--- NOTE | 2016-11-10 10:52 | ABG ---
DateTimeAnalyzed 10:45:00 -_ pH ____7.237 - 7.350 7.450 pCO2 ___60.5__ -mmHg 35.0 45.0 pO2 ___61.5__ -mmHg 69.0 116 HCO3- ___25.7__ -mmol/L 22.0 26.0 ABE ___-1.7__ -mmol/L tHb ___10.4__ -g/dL O2Hb ___88.7__ -% COHb ____1.0__ -% 1.5 MetHb ____0.6__ -% sO2 ___90.2__ -% FIO2 ___90.0__ -% PRVC 410 - PEEP ___20.0__ -cmH2O Set_RR 28 -b/min Vt __410.0__ -L Drawn By NB - Date/Time Notified____ 10:52:00 -_ Oxygen Device 1 VENTILATOR - Notified By nb - Notified Whom DR Parimi - K+ ____3.6__ -mmol/L tO2 ___13.0__ -Vol% Lj test N/A -
--- NOTE | 2016-11-10 11:05 | NUR ---
NUTRITION FOLLOW-UP Assess: 61 YO M admitted to CCU for aspiration pneumonia, sepsis, ARF, and polysubstance abuse. Pt is currently intubated and sedated and paralyzed on Nimbex. TF was advanced 11/09 but overnight pt had high residuals in the 500s, likely due to pt being on nimbex. TF is currently off. Pt has not had a BM x5 days. Pt to have Abdominal US today. Palliative care is involved. PMHX: Heroin use, chronic back pain, DJD, glucose intolerance, kidney stones. DIET: NPO X 3 days. LABS:Na 152, Cl 116, Bun 31, butcher or smallgoods maker 1.58, Glu 113, Ca 7.3, Alb 2.8 MEDICATIONS: Reviewed. Albumin, Pressor, Nimbex, Fentanyl. GI: No BM x5 days. SKIN: No issues per WC ANTHROPOMETRICS: Wt 86.6 kg, BMI 27.4 kg/m2, Admit wt: 74.6 kg. ESTIMATED NEEDS: VENT Calories: 0101-2017 kcal/day (20-25 kcal/kg BW) Protein: 130-155 g/day (1.5-1.8 g/kg BW) Fluids: 2354-9580 ml/day (25-30 ml/kg) NUTRITION DIAGNOSIS: 1) Inadequate oral intake related to decreased ability to consume sufficient energy as evidenced by NPO/Vent status. --PERSISTS INTERVENTION: 1) Recommend re-start TF when medically appropriate. Recommend continue TF of Nepro @ 10 ml/hr, advance 10 ml q 6 hr to goal rate of 55 ml/hr. At goal TF will provide 2178 kcal, 98 g protein; meeting 100% calorie, 74% of protein needs. 2) If desired per MD to continue increased free water flushes when TF re-started, recommend fluid flush of 65ml q 1 hr to provide additional 1536ml free water. TF water+ free flushes provides 2415ml H20. 3) Once tolerance established, consider adding 1 packet of prosource TID to better meed protein needs. MONITOR/EVALUATE: NPO/Vent status, TF tolerance/advance, BM?, labs, POC, GI/nutrition status. Follow per high nutrition risk guidelines.
--- NOTE | 2016-11-10 11:25 | NUR ---
Palliative Care Palliative Care received verbal order from Dr Deras 11/10/16 to assist with goals of care. Patient was admitted 11/05/16. Currently intubated. Jann Michel (brother) [phone] Farzanaadalberto Gaelana (ex ) cell [phone], Palliative Care to follow. Brittany Field
--- NOTE | 2016-11-10 11:35 | DRSVH ---
PROCEDURE: X-RAY CHEST ONE VIEW, PORTABLE ([id number]) INDICATIONS: ARDS TECHNIQUE: One view of the chest was acquired. COMPARISON: [facility], CR, XR CHEST 1VW (PORTABLE), 11[facility]05[facility]2016, 15:58[facility], 11/08/2016, 5:39. [facility], CR, XR CHEST 1VW (PORTABLE), 11/07, 4:57. [facility], CR, XR CHEST 1VW (PORTABLE), 11/09/2016, 5:23. FINDINGS: Surgical changes and devices: ETT tip projected 7.6 cm above the leyda. Stable position nasogastric tube and right IJ CVL. Lungs and pleura: Perihilar and basilar airspace opacities present and not significantly changed from prior examination. Small pleural effusions. No pneumothorax. Mediastinum: Mediastinal contours appear normal. Heart size is normal. Bones and chest wall: No suspicious bony lesions. Overlying soft tissues appear unremarkable. IMPRESSION: 1. Stable support lines and tubes. 2. Pulmonary edema and/or diffuse bilateral pneumonia similar to previous examination. ARDS cannot b e excluded. Dictated by: Joselo Horvath Sharron Interpreted: Chad Anderson MD on 11/10/2016 at 8:22 Approved by: Chad Anderson M.D. on 11/10/2016 at 11:33
[2016-11-10] MEDS: Chlorothiazide Inj 500 MG in Dextrose 5% 50 ML IV SCH ×2 (12:26→22:50)
[2016-11-10] MEDS ORDERED: Furosemide 10 mg/mL 4 mL Inj IVPUSH ONE (13:55)
--- NOTE | 2016-11-10 13:56 | PCM.PNNEPH ---
Subjective Date of Service Nov 10, 2016 Subjective Patient intubated and sedated in the ICU so no ROS could be obtained. Exam Vital Signs Vital Sign - Last Date Time Temp Pulse Resp B/P Pulse Ox O2 Delivery O2 Flow Rate FiO2 11/10/16 11:50 38.1 89 30 90/45 92 Mechanical Ventilator 80 Intake and Output 11/09/16 11/09/16 11/10/16 Cumulative From/Thru 15:00 23:00 07:00 11/05/16 16:16 - 11/10/16 05:50 Intake Total 2557 ml 3000 ml 04647 ml Output Total 3800 ml 2020 ml 83982 ml Balance -1243 ml 980 ml 91603 ml Intake Oral 0 ml IV Total 1938 ml 1937 ml 74586 ml Tube Feeding 188 ml 347 ml 619 ml Tube Irrigant 431 ml 716 ml 1227 ml Output Urine Total 3800 ml 1500 ml 03652 ml Gastric Drainage Total 520 ml 790 ml # Bowel Movements 0 Exam Intubated, sedated and paralyzed in the ICU. Neck: No appreciable JVD; right IJ Chest: Diffuse coarse breath sounds Cardiac: RRR, no murmur appreciated Abdomen: Slow bowel tones, abdomen firm Judd catheter present Extremities: No cyanosis,clubbing; generalized edema in the extremities; right radial arterial line Radial and dorsalis pedis pulses present and equivalent bilaterally IVs and Medications Medications Reviewed: Medications were reviewed in detail Lab and Diagnostics Result Diagram: 11/10/16 0505 11/10/16 0505 Plan Plan: 1. Acute kidney injury, improving. - Likely multifactorial and secondary to sepsis, ATN, and volume depletion. Also some concern for rhabdomyolysis at time of admission. - Continue to monitor BMP. - Avoid nephrotoxic medications and renally dose medications. 2. Hypernatremia, acute. - Free water deficit calculated to be about 3.7L. - IV chlorothiazide 500 mg BID in an effort to exert a naturetic effect and work with Lasix for diuretic effect. - D5W at 70 ml/hr. Minimize other IV fluids as much as possible. - Add free water flushes back when tube feeding resumed. - Continue to monitor BMP. 3. Hyperkalemia, ongoing. - Continue to monitor BMP. Replete as needed. 4. Anasarca. - Patient about 13L positive over the course of admission with notable edema on exam today. - One time dose of Lasix IV 40 mg to be given slowly over 30 minutes. Start Lasix drip slowly at 1 mg/hr. Advance slowly and as tolerated by the patient. - Albumin IV to promote retention of fluid in the intravascular compartment. - Will monitor blood pressure and urine output closely. - Check intraabdominal pressures via the Judd catheter. 5 Severe sepsis. 6. ARDS secondary to presumed aspiration pneumonia. 7. Metabolic encephalopathy. 8. Pancytopenia, improving. 9. Polysubstance abuse. 10. Chronic hep c infection. Kimmy Giron DO Nov 10, 2016 13:56
--- NOTE | 2016-11-10 14:27 | NUR ---
Social work Note - DIAPHRAGM BUILDER met with pt's ex- Farzana Brito who is at the hospital visiting pt. Farzana states that Pt has no DPOA. He has two children - Balaji, who is mentally delayed and unable to understand information. His daughter Barb is currently incarcerated at [facility] assisted for drug use. Perla states that the court records indicate she may be released from assisted tomorrow. Pt has a brother Jann Michel who Farzana states is not reliable - She states she worries that he has been using his food stamps card and he has asked for Pt's bank card. Farzana was able to talk with MD today and will be available tomorrow. DIAPHRAGM BUILDER asked INSIDE METER TESTER to contact assisted to determine if daughter will be available for consult tomorrow. SILVESTRE Gonsalves
--- NOTE | 2016-11-10 14:35 | PCM.PNMED ---
Subjective Date of Service Nov 10, 2016 Subjective CRITICAL CARE PROGRESS NOTE, ATTENDING: DR. DERAS Herber Brito is a 61 year old man with past medical history significant for hypertension, diabetes mellitus, pneumonia and heroin abuse who presented to the [facility] ED via EMS due to loss of consciousness due to polysubstance abuse. Currently under treatment for amphetamine toxidrome, aspiration pneumonia complicated by ARDS, shock and bone marrow suppression. Vent day #6 Overnight: The patient's NE had to be titrated up to 1.33 mcg/kg/min. Today: The patient continues to be sedated, paralyzed, and intubated. ROS is not obtainable. Exam Vital Signs Vital Sign - Last Date Time Temp Pulse Resp B/P Pulse Ox O2 Delivery O2 Flow Rate FiO2 11/10/16 11:11 91 93/43 93 80 11/10/16 08:05 Ventilator 11/10/16 08:05 39.4 30 Intake and Output 11/09/16 11/09/16 11/10/16 Cumulative From/Thru 15:00 23:00 07:00 11/05/16 16:16 - 11/10/16 05:50 Intake Total 2557 ml 3000 ml 59734 ml Output Total 3800 ml 2020 ml 03235 ml Balance -1243 ml 980 ml 05352 ml Intake Oral 0 ml IV Total 1938 ml 1937 ml 90085 ml Tube Feeding 188 ml 347 ml 619 ml Tube Irrigant 431 ml 716 ml 1227 ml Output Urine Total 3800 ml 1500 ml 54826 ml Gastric Drainage Total 520 ml 790 ml # Bowel Movements 0 Exam General: sedated, paralyzed, on mechanical ventilation. HEENT: Normocephalic, atraumatic. External ears without defect. Pupils equal, round, and reactive to light and accommodation. Anicteric sclerae, moist conjunctivae, and no lid lag. Oropharynx free of erythema and cobble stoning with dry mucosa. ET tube in place, OG tube in place. Neck: Supple with full range of motion. No jugular venous distension. No lymphadenopathy or thyromegaly. Right IJ in place without signs of bleeding or infection. Cardiovascular: Regular rate and rhythm with no murmurs, rubs, or gallops appreciated Pulmonary: Diffuse coarse rhonchi bilaterally. Abdomen: Bowel tones present. Soft, nontender, mildly distended. No hepatosplenomegaly or masses appreciated. Extremities: No clubbing, cyanosis, or lymphadenopathy appreciated. Bilateral lower extremity and upper extremity edema. Skin: Normal temperature, turgor, and texture; no rash, ulcers, or subcutaneous nodules appreciated. : Judd in place with clear yellow urine draining Neurological: Cranial nerves grossly intact. Normal muscle strength, tone, and bulk. No known gait impairment. Psychiatric: Sedated, paralyzed. IVs and Medications Medications Reviewed: Medications were reviewed in detail Lab and Diagnostics Item Value Date Time Hepatitis C Virus Quantitation 948262 IU/mL 11/08/162109 Hepatitis C RNA (PCR) log10 5.525 11/08/162109 Procalcitonin 39.24 ng/mL H 11/10/16 050 Amylase Level 18 U/L L 11/10/16504 Lipase 30 U/L 11/10/16504 Result Diagram: 11/10/1650411/10/16504 Microbiology Negative to date X-Rays, CTs and MRIs X-RAY CHEST ONE VIEW, PORTABLE IMPRESSION: 1. No significant interval change in pulmonary edema and/or diffuse bilateral pneumonia. Developing ARDS cannot be excluded. 2. Small bibasilar pleural effusions redemonstrated, right greater than left. Dictated by: Joselo Horvath RRSharron Interpreted: Olivia Montenegro MD on 11/09/2016 at 8:38 Assessment & Plan Herber Brito is a 61 year old man with past medical history significant for hypertension, diabetes mellitus, pneumonia and heroin abuse who presented to the [facility] ED via EMS due to loss of consciousness due to polysubstance abuse. Currently under treatment for amphetamine toxidrome, aspiration pneumonia complicated by ARDS, shock and bone marrow suppression. Vent day #5 Acute hypoxemic respiratory failure secondary to aspiration pneumonia complicated by ARDS -Mechanical ventilation with paralysis with Nimbex, sedation with Versed and Fentanyl -Low tidal volume protocol per ARDS-NET with high PEEP, Will use high PEEP ladder. -Repeat ABG in AM -Zosyn and Levaquin per Dr. Salazar, antibiotic day 5 -Bronchoscopy performed yesterday did not reveal any obvious pathology. Studies sent and pending. -CRUZ with reflex, ANCA, antiphospholipid antibody to rule out vasculitis. Pending. Encephalopathy secondary to acute drug intoxication secondary to opioids and amphetamines -Patient's hyperthermia, tachycardia, rhabdomyolysis, agitation all more likely due to toxidrome than sepsis -Continue paralytic and sedation with Versed and Fentanyl Shock, multifactorial secondary to sepsis and hypovolemia -With T 39.8, RR 30, WBC 1.9, hyperlactetemia on admission -Blood, sputum and urine cultures obtained, no growth to date -Antibiotics as above -Continue NE for pressure support of MAP>65 Pancytopenia, improved, with platelets as the main cell line still affected -Likely secondary to drug ingestion versus sepsis -HIT antibody are negative. -Continue to monitor. Will hold off on prophylactic heparin. High anion gap metabolic acidosis likely secondary to renal failure and hyperlactetemia, resolved -Continue to trend lactate and ABGs daily. Hepatitis C infection -Genotype pending Acute renal failure likely secondary to rhabdomyolysis and hypovolemia, resolved -Repeat BMP -Nephrology consulted by primary team. Rhabdomyolysis, resolved. Fluid overload, iaotrogenic -Patient is positive 13 L. -Lasix drip per nephrology. Hypevolemic hypernatremia -About a 2 L TBW deficit, will give D5W at 70 cc/hr. Prophylaxis: GI: Famotidine DVT: SCDs VTE Mechanical Devices: Intermittant Pneumatic CD Resuscitation Status: CPR: Attempt Resuscitation Attending Statement I have seen and examined this patient with the resident physician. Vital signs , labs, imaging have been reviewed. I agree with the assessment and plan above. Please refer to my separately dictated progress note for any modifications to above. Ange Deras M.D. Pulmonary and Critical Care medicine Pager [phone] Maggie Montelongoktfarzad CARROLL Nov 10, 2016 11:19 Ange Deras MD Nov 10, 2016 17:14
--- NOTE | 2016-11-10 15:55 | NUR ---
Called [facility] and spoke with patient's NOK Barb Brito. She was aware father was here and she is aware she would be family member to make decision regarding health care if needed. She is hoping to speak with MD regarding condition and status of her father. Tomorrow patient's daughter will be transferred to another correctional facility in [facility]. Updated BED BUG EXTERMINATOR and attending MD
[2016-11-10] MEDS: Dextrose 5% 1,000 ML IV SCH (16:03)
--- NOTE | 2016-11-10 16:14 | DRSVH ---
PROCEDURE: US ABDOMEN, LIMITED ([id number]) INDICATIONS: abscess? ascites? TECHNIQUE: Real-time focused scanning was performed of the abdomen, with image documentation. COMPARISON: None. FINDINGS: Trace pericholecystic and right lower quadrant fluid present. IMPRESSION: Trace ascites with volume not sufficient for safe paracentesis. Dictated by: Joselo Horvath RRA Interpreted: Chad Anderson MD on 11/10/2016 at 15:19 Approved by: Chad Anderson M.D. on 11/10/2016 at 16:12
--- NOTE | 2016-11-10 16:59 | PCM.PALLBR ---
Palliative Care Recommendation Update and Continuation of Initial Consult Note: Family Conference Team Meeting (FCTM): held in late afternoon with George Sanderson, ex- Farzana, step-dtr Lucrecia, cousin in the room and Designated decision maker, pt's brother Jann Michel on speakerphone. Dr. Deras gave the family a medical update, explaining that Mr. Spears lungs were failing, and if his ventilator were stopped for even one minute, he wouldn' t live. She said the medical team is using drugs to keep Mr. Spears blood pressure high enough to live, that he is basically being kept alive on machines, while we wait for his body to 'get through this.' However, over the last few days, his condition has been getting worse. She did a bronchoscopy yesterday to see if there was anything going on in the lungs that we might be missing, but it didn't show anything more than infection , and the infection is receiving very strong antibiotics to fight it. However, the infection is getting worse, and he is getting worse--even with full medical support. She told the family that she was worried he may not survive the night. She asked if the family might want to get ready to say goodbye in a controlled fashion. She explained that the medical team has done our best to make him better and it isn't working. Jann said he thinks it is better to make his brother comfortable now. He agreed to try to contact Mr. Brito's son Balaji to see if he wanted to come by hospital to say good-bye. Dr. Vazquez asked JESSICA Corina to try to reach dtr Barb (in [facility]) and son Ramy (in [facility]) to let them know that their father is dying. They can call [facility] to have RNs hold phone to Mr. Barillass ear to say goodbye. (It is doubtful that any visit can be arranged given their circumstances). Dr. Deras will leave orders to change pt's code status to DNR/DNI now, and to not escalate care if he declines. Family agrees to this. Dr. Deras will also leave written orders for compassionate extubation, which will start when family lets nursing know that all family members who are able, have been in to say goodbye. Summary of palliative recommendations: Patient is a 61-year-old gentleman with hypertension, diabetes mellitus, pneumonia and heroin abuse who presented to the [facility] ED via EMS due to loss of consciousness secondary to polysubstance abuse. He was subsequently intubated and currently sedated on the ventilator. Clinical picture consistent with ARDS and aspiration pneumonia. -Symptom management (Pain/other): Per primary medical and critical care teams. -DPOA/Advanced Directives/POLST: No designated DPOA. State designated decision maker by default would be patient's brother, Jann Michel, as patient's children are estranged and not actively involved with patient. 1. Patient is currently DNR/no not reintubate once extubated/do not escalate care if clinical decline occurs overnight. -Family/emotional support: -Jann Michel (brother): [phone] -Farzana Galeana (ex-). 7 years, were together for 29 years total. She has maintained a relationship with patient following divorce - -Work: -Lucrecia Strickland (patient's step-daughter, Farzana's biological daughter). No relation with patient and has expressed no interest to build relations per Farzana. -Balaji (son), recently released from snf. Estranged from father. -Ramy (son), incarcerated. Estranged from father. Recognized as patient's biological son but no certificate exists as proof. -Barb (daughter) is currently in [facility] snf for drug-related activity , estranged from father. -Patient's two other children are . , parents and sister also . -Aunt Lisa (mother's sister) is disabled and drinks heavily per Farzana. 11/10: In the morning, Dr. Vazquez contacted Jann (patient's brother and default DPOA) and Farzana (ex-) with updates on the patient's critical condition. A family conference team meeting (FCTM) was scheduled for at 11a.m. to discuss the goals of care. However, majority of family/medical team information was shared at 1600h on 11/10 when family urgently called in because when pt appeared to be declining faster and the concern was that he would before morning. We no longer expect to have a formal meeting at 11 a.m. on 11/11. Problems: Goals of Care Patient is currently FULL CODE but this will be revisited as discussion with family continues to evolve. Disposition Pending hospital course Resuscitation Status Resuscitation Status: CPR: Attempt Resuscitation POLST Updates/Changes Previous POLST?: No Total time 70 minutes; >50% face to face with patient and/or family, providing counselling regarding plans and recommendations, and in care coordination with his/her medical teams. (This was spent by Dr. Ibarra and Dr. Vazquez together earlier today, 11/10/16.) The note above documents an additional 65 minutes counseling was for advanced care planning with the patient/the patients family/the surrogate decision maker in the late afternoon on 11/10. This is in addition to 70min spent earlier today. . Evelyne Vazquez MD Nov 10, 2016 16:59
--- NOTE | 2016-11-10 18:36 | NUR ---
Low BP/palliative care conference Progressively more label BP with MAP in low to mid 40s. At the time patient was started on diuril IV infusion and BP decreased gradually even farther. Patient was not tolerating turning bed rotation was stopped. Diuril infusion was stopped- attending MD was made aware and was able to consult with ordering conference center manager. At the time patient required double the amount of levophed drip and MD ordered 500ml LR bolus over 30min. BP improved towards the end of LR bolus but patient continued to required high dose of levophed drip. Family conference took place this afternoon/evening- patient was transitioned to DNR status without chest compression but to remain intubated and to follow currant medication regiment. Patient to be transitioned to comfort care with compassionate ex-tubation when some family members arrive this evening or tomorrow morning- please see attending training and development professional and Palliative Care MD progress nots.
[2016-11-10] MEDS: fentaNYL 2,500 mCg/250 mL 2,500 MCG in IV Premix 1 EACH IV PRN (21:03)
[2016-11-10] MEDS: Famotidine Inj 20 MG in IV Premix 1 EACH IV SCH (21:03)
[2016-11-10] MEDS: LORazepam 100 mg/100 mL Drip IV PRN ×2 (21:44)
[2016-11-10] MEDS ORDERED: Lactated Ringer's 500 ML IV ONE (23:40)
[2016-11-11] MEDS: Norepineph 8,000 mCg/250 mL NS 8,000 MCG in IV Premix 1 EACH IV SCH ×5 (00:14→12:16)
[2016-11-11] MEDS: Chlorhexidine 0.12% 15 mL Oral Solution MT SCH ×3 (00:14→08:30)
[2016-11-11 00:17] VITALS: BP 92/38; PULSE 94; RESP 30; O2SAT 93
[2016-11-11 00:25] VITALS: BP 84/36; O2SAT 92
[2016-11-11] MEDS ORDERED: Lactated Ringer's 500 ML IV PRN (01:50)
[2016-11-11] MEDS: Lactated Ringer's 500 ML IV PRN ×2 (02:21→05:40)
[2016-11-11] MEDS: Dextrose 5% 1,000 ML IV SCH (04:13)
[2016-11-11] MEDS: Acetaminophen IV 1,000 MG in IV Premix 1 EACH IV PRN (04:13)
[2016-11-11 04:14] VITALS: BP 86/35; PULSE 94; RESP 30; O2SAT 92
[2016-11-11 04:57] VITALS: BP 93/41; O2SAT 92
[2016-11-11] MEDS: Piperacillin-Tazo 3.375 Gm Inj 3.375 GM in Dextrose 5% Minibag Plus 50 ML IV SCH (05:39)
--- NOTE | 2016-11-11 06:39 | NUR ---
Family/Cardiac Patients brother Jann Michel undecided yet when to extubate patient to comfort, He said he will make decision in the morning after conferring with the rest of the family. cvp 8 on high peep (20+), map 55-60, sbp 90s mmhg, titrating up levo gtt, Dr. Lind notified of BP trends, held diuril dose due at 2250 and given LR 500 cc boluses x4,total of 2L Tmax 39.5 C, given Tylenol IV. RASS -5, on fentanyl, Ativan and nimbex gtt, TOF 1-2 out of 4.
[2016-11-11 07:45] VITALS: BP 92/40; O2SAT 92
[2016-11-11 08:00] VITALS: BP 104/42; PULSE 91; RESP 30; O2SAT 92
[2016-11-11] MEDS ORDERED: Micafungin Inj 150 MG in 0.9% Sodium Chloride 100 ML IV SCH (08:30)
--- NOTE | 2016-11-11 08:42 | PROG NOTE ---
[address] [address] PROGRESS NOTE PATIENT: GIORGIO OBRIEN : 1955 MR#: [id number] ADMIT: 11/05/2016 JOB ID: [id number] DATE: 11/11/2016 INFECTIOUS DISEASE FOLLOW UP NOTE: REASON FOR FOLLOWUP: Refractory septic shock, ventilator dependent respiratory failure and overall critical illness. INTERVAL HISTORY: Overnight this critically ill patient has worsened. He has required increasing amounts of PEEP to support his oxygenation. In addition, he has required near maximal doses of norepinephrine and increasing doses of the paralyzing agent Nimbex. He continues on broad-spectrum antibiotics which are now entering their seventh day. Despite this aggressive support, the patient is overall deteriorating. He has spiking high fevers today as well as near refractory hypotension and overall worsening clinical picture. Labs were not ordered this morning so I have taken the liberty of ordering those and they will be missing from the rest of this dictation as they are pending as of this hour. This case discussed at the bedside with the ICU nurse and later this morning with the ICU team. PHYSICAL EXAMINATION: Reveals a critically ill, gentleman lying supine, intubated and paralyzed in his ICU bed. He is obviously not responsive. His temperatures during the night fairly consistently around 39.5 degrees, currently 39.3. This represents a worsening over the last few days as his temperatures had been gradually declining over his first five days in the hospital, though we have never quite become consistently afebrile. His pulse is currently in the 90s. His blood pressure 93/41 on 0.6 mcg/kg/minute of norepinephrine. He remains paralyzed on Nimbex as was mentioned. He is completely ventilator dependent obviously since he is paralyzed. FiO2 75%, PEEP now 20, saturating modestly at 92%. Examination of the head reveals no notable abnormalities. His eyes have what appears to be some mild scleral icterus or muddy sclerae. Pupils are small and equal. His nose appears normal. He does not have an NG tube. Cannot assess him for sinus tenderness obviously as he is paralyzed. Oral gastric tube and oral endotracheal tube in good position. No herpetic lesions. No thrush visible. His neck is without new abnormality. He has a right IJ line which appears benign. He also has two peripheral IVs in his right arm and a right radial A-line. All of these appear benign at their insertion. His right arm is not swollen. All four extremities now have evidence of "third spacing," but they are well perfused. His lungs are notable for diffuse coarse rales as before. No change or improvement. Cardiac tones are regular and distant in this critically ill gentleman. The abdomen is slightly distended and one cannot appreciate organomegaly or ascites. Penis and scrotum appear normal. There is no scrotal cellulitis. No meatal abnormalities are seen. No inguinal adenopathy is noted. The patient continues to have a left knee effusion but there is no erythema or warmth present over that effusion. It would appear to be chronic. Judd catheter is in place. I note that the patient has essentially no stool output and he continues to have reasonable urine output despite his refractory shock. LABORATORY STUDIES: Were not done yet this morning and as mentioned I have just ordered those. Yesterday's white count was 10,000. Yesterday's creatinine 158. Yesterday's LFTs were entirely normal. We did do a lipase yesterday which was actually low at 18 and a procalcitonin was down to 40 yesterday which is a big improvement from 200 when we started about six days ago. The patient's hepatitis C is positive and we do have a viral load now, 335,000, so he has active hepatitis C and his HIV is negative. Micro studies continue to mature. The patient's blood cultures are negative. Urine pneumococcal antigen negative. Urine Legionella negative. MRSA screen negative. Respiratory viral PCR negative. The patient underwent bronchoscopy on the . The bronch has a fairly minimal growth and we will be checking with micro recording any growth found in the bronch wash. IMAGING: Includes an abdominal ultrasound done yesterday which showed little but trace ascites too small to tap. Yesterday's chest x-ray shows pulmonary edema and/or ARDS or bilateral pneumonia. We have ordered a repeat chest x-ray which we anticipate will be done in the next few minutes. IMPRESSION: This is an incredibly complex and unfortunate case. This gentleman had a massive aspiration probably last Tuesday, November 05 and was intubated in the emergency department. This proceeded almost certainly from a polysubstance overdose. Since then, he has been ventilator dependent and required increasing doses of vasopressor agents. His procalcitonin, white count, and to some degree, his temperature curve were responding to levo and Zosyn yesterday and then during the night he has had increasing hypotension and vasopressor requirements as well as increased fevers. The differential diagnosis here is broad and includes possibilities such as line infection, pulmonary superinfection, fungemia, C. difficile, DVT, drug reaction, sinusitis, pancreatitis, hepatitis, nosocomial or some intra-abdominal process. The most likely of these would seem to be pulmonary superinfection, intra-abdominal catastrophe, line infection or fungemia. RECOMMENDATIONS: 1. All a.m. labs have been ordered including procalcitonin, fungal blood cultures. 2. Chest x-ray has been ordered. 3. We will add micafungin in a dose of 150 once a day. 4. Will be checking with the micro lab later this morning to see what is growing from the bronch wash and other changes in antibiotics may be indicated. 5. Lipase will be added on to today's labs. 6. A stool for C difficile should be checked should he produce any stool. 7. Consideration towards changing lines may not be unreasonable in this situation. If so, the A-line and central line should be cultured. 8. If possible a CT scan of the chest, abdomen and pelvis would be indicated but obviously he is on too much PEEP now to make that possible. 9. The recent article by Saray from [facility] suggest a cocktail of vitamin C, thiamine and hydrocortisone may be useful in refractory cases such as this and I plan to discuss this with the ICU attending this morning.
[2016-11-11 08:46] LABS: Mean Corpuscular Hemoglobin 30.5 pg (27.0-35.0); Mean Corpuscular Volume 96.6 fL (81-100); Platelet Count 52 bil/L (150-400)
[2016-11-11] MEDS: levoFLOXacin Inj 750 MG in IV Premix 1 EACH IV SCH (09:33)
[2016-11-11 09:38] LABS: BASOPHILS % (AUTO) 0 % (0-3); EOSINOPHILS % (AUTO) 0 % (0-5); MONOCYTES % (AUTO) 4 % (4-12); NEUTROPHILS % (AUTO) 73 % (40-74)
[2016-11-11] MEDS: Chlorothiazide Inj 500 MG in Dextrose 5% 50 ML IV SCH (10:50)
--- NOTE | 2016-11-11 11:08 | DRSVH ---
PROCEDURE: X-RAY CHEST ONE VIEW, PORTABLE ([id number]) INDICATIONS: INTUBATED TECHNIQUE: One view of the chest was acquired. COMPARISON: [facility], CR, XR CHEST 1VW (PORTABLE), 11/10/2016, 5:15. FINDINGS: Surgical changes and devices: ETT tip projected 6.4 cm above the leyda. Stable position nasogastric tube and right IJ CVL. Lungs and pleura: Perihilar airspace opacities present and not significantly changed from prior exami nation and there's been interval decrease in airspace opacity involving the lung bases. Small pleura l effusions. No pneumothorax. Mediastinum: Mediastinal contours appear normal. Heart size is normal. Bones and chest wall: No suspicious bony lesions. Overlying soft tissues appear unremarkable. IMPRESSION: 1. Persistent perihilar opacification and interval decrease in bibasilar airspace opacities when comp ared to prior examination. Dictated by: Joselo Horvath [facility] Interpreted: Juanito Barney MD on 11/11/2016 at 10:03 Approved by: Juanito Barney M.D. on 11/11/2016 at 11:04
--- NOTE | 2016-11-11 11:13 | PROG NOTE ---
[address] [address] PROGRESS NOTE PATIENT: GIORGIO OBRIEN : 1955 MR#: [id number] ADMIT: 11/05/2016 JOB ID: [id number] DATE: 11/11/2016 PULMONARY CRITICAL CARE PROGRESS NOTE: The patient is a 61-year-old man with history of polysubstance abuse admitted with substance overdose, respiratory failure, ARDS and septic shock. INTERVAL HISTORY: Based on family conference yesterday with his brother, ex- and a cousin present, the recommendation was to transition to comfort measures after the rest of his family has had a chance to visit. Attempts are being made to contact his daughter who is in nursing home and another son who is mentally disabled. REVIEW OF SYSTEMS: Unable to obtain since patient is intubated. PHYSICAL EXAMINATION: Vital signs reviewed. T-max 39.3, pulse 94, respirations 30, BP 86/35, sats 92% on 75% FiO2 and PEEP of 20 cm. General: Intubated, sedated and paralyzed. Chest: Coarse breath sounds bilaterally. LABORATORIES: Reviewed. WBC is up to 14.4, hemoglobin 9.9, platelets 52. Chemistry reviewed. Sodium 149, creatinine is up slightly to 2.4 from 1.6. BUN of 44. Procalcitonin has gone back up slightly from 39 yesterday to 42 today. Cultures: No new growth on BAL. IMAGING: Shows persistent bilateral dense consolidation. ASSESSMENT AND RECOMMENDATIONS: 1. Severe acute respiratory distress syndrome. 2. Acute hypoxic respiratory failure on mechanical ventilation since November 05. 3. Septic shock. 4. Persistent fevers. 5. Acute kidney injury. 6. History of polysubstance abuse including methamphetamine and heroin. 7. Aspiration pneumonia. 8. Thrombocytopenia. This 61-year-old man with history of substance abuse presenting after being found down, with respiratory failure and ARDS as well as septic shock. He seems to be declining overall and we explained all of this to his family yesterday. Of note, he has a complex family situation with a couple of his children-a son and daughter both in nursing home and another son who is mentally disabled. For this reason, they could not be present here for much of the discussions. The people present yesterday for the conversation where his ex- who reportedly is still very close to him and his brother, Jann, was available on speaker phone. Obviously his ex- would not have decision-making capacity and his brother, Jann, was speaking for the family yesterday and felt that the patient would not want life support continued under the circumstances and agreed with transitioning to comfort measures. We are still trying to reach all his children today to ensure consensus regarding this decision. In the meantime, his PEEP is at 20 cm, FiO2 is at 75%. Kidney function is declining. His pressor requirement has gone up dramatically overnight. He is currently on norepinephrine at 0.6. CODE STATUS was changed to DNR at this point, and as discussed above, once we have communicated with his children, the plan will be hopefully to transition to comfort measures. CRITICAL CARE TIME: 45 minutes.
[2016-11-11] MEDS: Cisatracurium Inj 200,000 MCG in 0.9% Sodium Chloride-Pha MIX 100 ML IV SCH (11:14)
[2016-11-11 12:16] LABS: APPEARANCE,URINE HAZY (CLEAR,HAZY); COLOR,URINE STRAW (YELLOW); OCCULT BLOOD,URINE NEGATIVE (NEGATIVE); PH,URINE 6.5 (5.0-8.0); UROBILINOGEN,URINE NORMAL (NORMAL)
[2016-11-11] MEDS: fentaNYL 2,500 mCg/250 mL 2,500 MCG in IV Premix 1 EACH IV PRN (13:10)
[2016-11-11] MEDS ORDERED: Norepinephrine 8,000 mCg/250 mL NS Premix IV ONE (14:15)
--- NOTE | 2016-11-11 14:24 | PATH ---
SURGICAL PATHOLOGY Attending Physician:Agus Juárez MD CASE STATUS: Signed Out PATIENT NAME: GIORGIO OBRIEN PID: [id number] : 1955 DATE COLLECTED:11/09/2016 00:00 SPECIMEN: Bilateral Lower Lobe Lungs CLINICAL HISTORY: Bilateral Lower Lobe Lungs ICD-10 code not given FINAL DIAGNOSIS: BILATERAL LOWER LOBE LUNG LAVAGE CYTOLOGY SPECIMEN (CELL BLOCK AND THINPREP): NEGATIVE FOR MALIGNANT CELLS. CELLS PRESENT INCLUDE NUMEROUS ATYPICAL REACTIVE-APPEARING SQUAMOUS EPITHELIAL CELLS AND INFLAMMATORY CELLS. ICD10 R91.8 GROSS DESCRIPTION: Received fresh on 11/10/2016 is approximately 20 cc of cloudy pink fluid. Prepared are one cell block and one ThinPrep slide. Vo MICRO DESCRIPTION: See diagnosis. ICD-9 CODES: CPT CODES: 1: 37643, 53869 Electronically Signed Out Ceferino Hardy MD [facility] [address], [place] [address] Technical component performed at [facility], [facility] [address], [place], [address]
--- NOTE | 2016-11-11 15:23 | PCM.DC.MEX ---
Discharge Summary Date of Service Nov 11, 2016 Dates of Hospitalization Date of Hospital Admission Nov 05, 2016 at 17:27 Date of Expiration: Nov 11, 2016 Time of Expiration: 15:00 Providers: Admitting Physician: Magno Armendariz MD Primary Care Physician: Jerome Lu MD Attending Physician: Magno Armendariz MD Diagnosis at Time of #. Polysubstance overdose leading to aspiration, prior to arrival #. Acute hypoxemic respiratory failure secondary to aspiration pneumonia complicated by ARDS, #. Toxic Encephalopathy secondary to acute drug intoxication secondary to opioids and amphetaminese. #. Septic Shock, multifactorial secondary to sepsis and hypovolemia. #. Hypernatremia, active. We will continue D5W at current rate and follow closely. We will have to hold his tube feeds and flushes today because of high retention and concern for aspiration. #. Pancytopenia #. High anion gap metabolic acidosis #. Acute renal failure #. Rhabdomyolysis Consultations Infectious disease, Dr. smith Pulmonary critical care, Dr. Deras Procedures XRay, CTs & MRIs X-RAY CHEST ONE VIEW, PORTABLE IMPRESSION: 1. No significant interval change in pulmonary edema and/or diffuse bilateral pneumonia. Developing ARDS cannot be excluded. 2. Small bibasilar pleural effusions redemonstrated, right greater than left. Dictated by: Joselo Horvath RRA Interpreted: Olivia Montenegro MD on 11/09/2016 at 8:38 Cardiac Echo Impression nterpretation Summary No gross evidence for endocarditis; however, the valves are not ideally visualized. The left ventricle is normal in size. The ejection fraction is estimated to be 55-60%. The right ventricle is borderline dilated. Right ventricular systolic function is at the lower limits of normal. The IVC is of normal diameter and collapses greater than 50% with a sniff. This suggests a low right atrial pressure of 3 mm Hg. There is a trivial right-sided pleural effusion. There is a moderately large left-sided pleural effusion. Invasive Procedures None Brief History Per admit note: Herber Brito is a 61 year old man with past medical history significant for hypertension, diabetes mellitus, pneumonia and heroin abuse who presented to the [facility] ED via EMS due to loss of consciousness. The patient was intubated in the ED and is unable to give history, most of the history is obtained from records and provider accounts. The patient has a history of heroin abuse and and was in an inpatient rehab center and was release on Tuesday. Per report he was left alone today and was subsequently found down in his home, laying on the floor with green vomit on the side of his face. The patient was still maintaining his airway when he was brought to the ED. The patient was tried on CPAP by EMS and appeared to improve. He was given Narcan which only improved his somnolence minimally. Per EMS his axillary temperature was 102. Per the ED physician the patient was able to answer a few minimal questions on arrival but was intubated for airway protection. He denied using drugs today. CXR in the ED revealed diffuse patchy infiltrates. When evaluated in the ED the patient was using significant effort to inspire against the portable ventilator and was tachypnic. Upon arrival to the ICU the patient was placed on a ventilatory with marginal improvement. The patient's blood pressure subsequently decreased as he fought the ventilator. He was paralyzed with Nimbex, sedated, with good improvement of the blood pressure. IJ was placed for monitoring and medication delivery. Palliative Care consulted to assist family in determining goals of care. Patient discussed in detail during critical care rounds with bedside nurse, primary medical team, critical care team and respiratory therapists. Records in EMR also reviewed in detail. Patient is sedated, intubated and not responsive. No family present at time of visit. Dr. Vazquez contacted the patient's brother, Jann Michel, and patient's ex- , Farzana Galeana. The patient does not have a designated DPOA. The state designated decision maker by default would be the patient's Jann since the patient's children are estranged. Dr. Vazquez updated both Jann and Farzana regarding the patient's critical condition. Critical care team does not expect the patient to survive this hospitalization. A meeting was arranged that is scheduled for tomorrow to initiate discussion regarding patient's goals of care. Hospital Course Herber Brito is a 61 year old man with past medical history significant for hypertension, diabetes mellitus, pneumonia and heroin abuse who presented to the [facility] ED via EMS due to loss of consciousness due to polysubstance abuse. Currently under treatment for amphetamine toxidrome, aspiration pneumonia complicated by ARDS, shock and bone marrow suppression. Vent day #5 Acute hypoxemic respiratory failure secondary to aspiration pneumonia complicated by ARDS -Mechanical ventilation with paralysis with Nimbex, sedation with Versed and Fentanyl -Low tidal volume protocol per ARDS-NET with high PEEP, Will use high PEEP ladder. -Repeat ABG in AM -Zosyn and Levaquin per Dr. Salazar, antibiotic day 5 -Bronchoscopy performed yesterday did not reveal any obvious pathology. Studies sent and pending. -CRUZ with reflex, ANCA, antiphospholipid antibody to rule out vasculitis. Pending. Encephalopathy secondary to acute drug intoxication secondary to opioids and amphetamines -Patient's hyperthermia, tachycardia, rhabdomyolysis, agitation all more likely due to toxidrome than sepsis -Continue paralytic and sedation with Versed and Fentanyl Shock, multifactorial secondary to sepsis and hypovolemia -With T 39.8, RR 30, WBC 1.9, hyperlactetemia on admission -Blood, sputum and urine cultures obtained, no growth to date -Antibiotics as above -Continue NE for pressure support of MAP>65 Pancytopenia, improved, with platelets as the main cell line still affected -Likely secondary to drug ingestion versus sepsis -HIT antibody are negative. -Continue to monitor. Will hold off on prophylactic heparin. High anion gap metabolic acidosis likely secondary to renal failure and hyperlactetemia, resolved -Continue to trend lactate and ABGs daily. Hepatitis C infection -Genotype pending Acute renal failure likely secondary to rhabdomyolysis and hypovolemia, resolved -Repeat BMP -Nephrology consulted by primary team. Rhabdomyolysis, resolved. Fluid overload, iaotrogenic -Patient is positive 13 L. -Lasix drip per nephrology. Hypevolemic hypernatremia -About a 2 L TBW deficit, will give D5W at 70 cc/hr. Prophylaxis: GI: Famotidine DVT: SCDs Hospital course. This patient was intubated for respiratory failure as detailed above. He had evidence of ARDS in context of aspiration likely relating to polysubstance overdose. The patient made minimal improvement in fact deteriorated. He required pressors and high FiO2 oxygen through the ventilator. Positive care medicine became involved with the case and had in- depth discussions for level of care decision making with the family. Ultimately family care. The patient was Actually extubated and within several minutes on the afternoon of note. Exam Test 11/05/16 16:26 11/05/16 17:17 11/05/16 17:37 11/06/16 10:56 Hemoglobin A1c 5.6% (4.8-5.6) Troponin T < 0.010ug/L (0.0-0.011) Urine Opiates Screen Positive Urine Methadone Screen Negative Urine Barbiturates Screen Negative Urine Amphetamines Screen Positive Urine Benzodiazepines Screen Negative Urine Cocaine Metabolite Screen Negative Urine Cannabinoids Screen Negative Urine Legionella pneumophilia Ag Negative (Negative) Uric Acid 8.2mg/dL (2.6-7.2) Test 11/06/16 11:40 11/06/16 13:50 11/06/16 14:27 11/07/16 02:40 Prothrombin Time 13.9sec (8.1-12.5) Prothromb Time International Ratio 1.29ratio Activated Partial Thromboplast Time 36.0sec (22.8-33.0) Fibrinogen 588mg/dL (157-380) D-Dimer 8.19mg/L FEU (<0.50) HIV (1&2) Ag and Ab, 4th Generation Non reactive (Non Reactive) Urine Random Creatinine 38mg/dL (22-328) Urine Random Total Protein 45mg/dL (0-15) Urine Random Sodium 93mEq/L Ionized Calcium (Calculated) 3.38mg/dL (3.5-5.2) Triglycerides Level 295mg/dL (0-149) Test 11/07/16 08:55 11/08/16 04:15 11/08/16 11:45 11/08/16 21:10 Heparin-PF4 Ab Optical Density 0.056OD (<0.4) Heparin-PF4 Antibody Interpretation Not indicated Myelocytes % 2% (0-0) Prealbumin 4mg/dL (20-40) Hold Chaudhary Top Tube Received (Received) Hepatitis C Virus Quantitation [id number] (.) Hepatitis C RNA (PCR) log10 5.525 (.) Hepatitis C Comment Comment (.) Test 11/09/16 04:16 11/09/16 15:20 11/10/16 05:05 11/11/16 08:25 Metamyelocytes % 2% (0-0) Lactic Acid Level 3.4mmol/L (0.4-2.0) Total Creatine Kinase 108U/L (21-232) Anti-Nuclear Antibody Screen Note: (Negative) Phosphorus Level 3.7mg/dL (2.5-4.9) Magnesium Level 2.2mg/dL (1.6-2.6) Amylase Level 18U/L (28-100) White Blood Count 14.4th/mm3 (3.8-10.1) Red Blood Count 3.25mil/mm3 (4.40-5.80) Hemoglobin 9.9g/dL (13.8-17.2) Hematocrit 31.4% (41.0-50.0) Mean Corpuscular Volume 96.6fL (81-100) Mean Corpuscular Hemoglobin 30.5pg (27.0-35.0) Mean Corpuscular Hemoglobin Concent 31.5% (32.0-37.0) Red Cell Distribution Width 17.1% (12.3-15.4) Platelet Count 52bil/L (150-400) Neutrophils (%) (Auto) 73% (40-74) Lymphocytes (%) (Auto) 16% (14-46) Monocytes (%) (Auto) 4% (4-12) Eosinophils (%) (Auto) 0% (0-5) Basophils (%) (Auto) 0% (0-3) Band Neutrophils % 7% (1-5) Sodium Level 149mEq/L (134-144) Potassium Level 4.0mEq/L (3.5-5.2) Chloride Level 112mEq/L (97-108) Carbon Dioxide Level 21mmol/L (18-29) Blood Urea Nitrogen 44mg/dL (8-27) Creatinine 2.40mg/dL (0.76-1.27) Estimat Glomerular Filtration Rate 29mL/min (>59) Glucose Level 103mg/dL (60-99) Calcium Level 7.2mg/dL (8.5-10.1) Total Bilirubin 0.8mg/dL (0.0-1.2) Aspartate Amino Transf (AST/SGOT) 41U/L (0-50) Alanine Aminotransferase (ALT/SGPT) 21U/L (0-44) Alkaline Phosphatase 55U/L (25-160) Total Protein 4.6g/dL (6.4-8.4) Albumin 2.2g/dL (3.4-5.0) Lipase 27U/L (13-60) Procalcitonin 42.51ng/mL (0.00-0.08) Test 11/11/16 11:46 Urine Color Straw (YELLOW) Urine Appearance Hazy (CLEAR,HAZY) Urine pH 6.5 (5.0-8.0) Urine Specific [place] 1.005 (1.003-1.035) Urine Protein Negativemg/dL (NEG,TRACE) Urine Glucose (UA) Negativemg/dL (NEGATIVE) Urine Ketones Negativemg/dL (NEGATIVE) Urine Occult Blood Negative (NEGATIVE) Urine Nitrite Negative (NEGATIVE) Urine Bilirubin Negative (NEGATIVE) Urine Urobilinogen Normalmg/dL (NORMAL) Urine Leukocyte Esterase Negative (NEGATIVE) Urine RBC 0-2/hpf (0-2) Urine WBC 0-5/hpf (0-5) Urine Epithelial Cells Occasional/hpf (NONE-MOD) Urine Crystals None seen (NONE SEEN) Urine Bacteria None/hpf (NONE-FEW) Urine Hyaline Casts None/lpf (NONE) Urine Granular Casts None seen (NONE SEEN) Urine Waxy Casts None seen (NONE SEEN) Urine Red Blood Cell Casts None seen (NONE SEEN) Urine White Blood Cell Casts None seen (NONE SEEN) Urine Mucus None seen (None Seen) Urine Trichomonas None seen (NONE SEEN) Urine Yeast None (NONE SEEN) Urinalysis Comment None Urine Culture Reflexed Not indicated Microbiology Results Negative to date Time spent 60 minutes Lj Rose MD Nov 11, 2016 15:23
--- NOTE | 2016-11-11 15:44 | NUR ---
spiritual care: staff referral Arrived in the pt's room directly prior to extubation. Prayed with family and stayed with them through the extubation process. Pt shortly thereafter. Helped the family navigate the process of telling family, calling home, etc. Blessed them.
--- NOTE | 2016-11-11 15:44 | PCM.PALLBR ---
Palliative Care Recommendation Patient is a 61-year-old gentleman with hypertension, diabetes mellitus, pneumonia and heroin abuse who presented to the [facility] ED via EMS due to loss of consciousness secondary to polysubstance abuse. He was subsequently intubated and currently sedated on the ventilator. Clinical picture consistent with ARDS and aspiration pneumonia. Per multiple conversations with multiple family members throughout the day, decision was reached with apparent complete family consensus (at least all family members that were available) to proceed with compassionate extubation. Patient was extubated with comfort treatments in place, and quickly and peacefully with multiple family members at bedside. Afterwards, they expressed their appreciation of the care given. Summary of palliative recommendations: Compassionate extubation and expiration with multiple family members at bedside -Jann Michel (brother): [phone] -Farzana Galeana (ex-). 7 years, were together for 29 years total. She has maintained a relationship with patient following divorce - -Work: -Lucrecia Marco A (patient's step-daughter, Farzana's biological daughter). No relation with patient and has expressed no interest to build relations per Farzana. -Balaji (son), recently released from [facility]. Estranged from father. -Ramy (son), incarcerated. Estranged from father. Recognized as patient's biological son but no certificate exists as proof. -Barb (daughter) is currently in [facility] for drug-related activity , estranged from father. -Patient's two other children are . , parents and sister also . -Aunt Lisa (mother's sister) is disabled and drinks heavily per Farzana. Problems: End of Life Preferences Resuscitation Status Resuscitation Status: DNR/DNI:Do Not Resuscitate/Intubate POLST Updates/Changes Previous POLST?: No . Advanced Care Planning Address: Comfort care Total time 115 minutes; >50% face to face with patient and family, across multiple visits and phone consultations throughout the day , providing counselling regarding plans and recommendations, and in care coordination with his medical teams. Of the above total time, 95 minutes counseling for advanced care planning with the patients family Palliative Brief Note Date of Service Nov 11, 2016 . Returned to reevaluate patient. Prior to visiting, reviewed his updated records in the EMR in detail, received signout from other palliative provider, and also reviewed his situation in detail with the medical and pulmonary/ critical care teams on rounds and then repeatedly throughout the day. Multiple phone calls through the day to various law enforcement agencies attempting to reach and update various family members. Unfortunately his daughter Barb was in transition from one correctional facility to another and remained unavailable throughout the day. Multiple lengthy discussions with family members at bedside including his primary current contact brother Jann and ex- Farzana. They were also in touch with other family members who could not be on hand, updating them and gathering consensus regarding treatment plan. Family noted vigorously that once they had all gathered they wished to proceed with compassionate extubation, as they thought that prolonging his support was not beneficial to him. Patient remained on the ventilator, unresponsive. Continued to deteriorate over the last 24 hours. On my visit today, he is a gentleman lying in bed, on ventilator, older appearing than his actual age. Vital signs noted. Skin warm and dry. No evident cyanosis. Requiring pressors as well as maximal ventilator support. Lungs with decreased breath sounds particularly on the left and scattered crackles diffusely. Heart sounds regular. Abdomen soft and without palpable masses. Extremities with diffuse puffiness. Reviewed his laboratory and imaging studies in detail on CCU rounds with the critical care team. Vinny Mejia MD Nov 11, 2016 15:44
[2016-11-11] MEDS ORDERED: Piperacillin-Tazo 3.375 Gm Inj 3.375 GM in Dextrose 5% Minibag Plus 50 ML IV SCH (16:30)
[2016-11-11] MEDS ORDERED: Vancomycin Serum Trough XX ONE (17:00)
--- NOTE | 2016-11-11 19:32 | NUR ---
Comfort Care.. B/P has been marginal throughout shift requiring increase of Norepi gtt. Pt very pressor dependent and would drift his B/P into the 70's if the gtt was interrupted. Pt 's family gathered today and conferenced with Palliative MD. Decision was made to have pt extubated to comfort care. Pt extubated at 1430 and went apnic and asystolic at 1444. Family at bedside with body mechanic apprentice present. Body to the morgue at 1800 and [facility] home notified.
[2016-11-12 06:17] LABS: dRVVT 67.4 sec (0.0-47.0); dRVVT Confirm 1.4 ratio (0.8-1.2)
[2016-11-14 10:09] LABS: Antiproteinase 3 (PR-3) Abs <3.5 U/mL (0.0-3.5); Perinuclear (P-ANCA) <1:20 titer (Neg:<1:20)
== END 2016-11-11 14:44 | disposition expired | DRG 917 ==
LOC: EDBD 15:49 → SED 15:49 → EDUNIT# 15:49 → CCU 17:27
PROVIDERS: ADMIT Internal Medicine; ATTEND Internal Medicine
PROC: 5A1955Z Respiratory Ventilation, Greater than 96 Consecutive Hours (ICD-10-PCS; principal; 2016-11-05)
PROC: 0BH17EZ Insertion of Endotracheal Airway into Trachea, Via Natural or Artificial Opening (ICD-10-PCS; 2016-11-05)
PROC: 4A033R1 Measurement of Arterial Saturation, Peripheral, Percutaneous Approach (ICD-10-PCS; 2016-11-05)
PROC: 05HM33Z Insertion of Infusion Device into Right Internal Jugular Vein, Percutaneous Approach (ICD-10-PCS; 2016-11-05)
PROC: B543ZZA Ultrasonography of Right Jugular Veins, Guidance (ICD-10-PCS; 2016-11-05)
PROC: 03HY32Z Insertion of Monitoring Device into Upper Artery, Percutaneous Approach (ICD-10-PCS; 2016-11-08)
PROC: 0B998ZX Drainage of Lingula Bronchus, Via Natural or Artificial Opening Endoscopic, Diagnostic (ICD-10-PCS; 2016-11-09)
PROC: 0B958ZX Drainage of Right Middle Lobe Bronchus, Via Natural or Artificial Opening Endoscopic, Diagnostic (ICD-10-PCS; 2016-11-09)
DX: T40.1X4A Poisoning by heroin, undetermined, initial encounter (principal); A41.9 Sepsis, unspecified organism; J96.01 Acute respiratory failure with hypoxia; N17.0 Acute kidney failure with tubular necrosis; R65.21 Severe sepsis with septic shock; J69.0 Pneumonitis due to inhalation of food and vomit; G92 Toxic encephalopathy; E87.0 Hyperosmolality and hypernatremia; D61.818 Other pancytopenia; E87.2 Acidosis; E87.1 Hypo-osmolality and hyponatremia; M62.82 Rhabdomyolysis; T43.624A Poisoning by amphetamines, undetermined, initial encounter; F11.10 Opioid abuse, uncomplicated; I10 Essential (primary) hypertension; E11.9 Type 2 diabetes mellitus without complications; F17.210 Nicotine dependence, cigarettes, uncomplicated; Z51.5 Encounter for palliative care